=== PATIENT | female | born 1995 | race African-American/Black ===

== ENCOUNTER 2018-04-25 23:57 | Emergency (ER) | payer SELFPAY ==
[2018-04-26] MEDS ORDERED: ONDANSETRON 4 MG (ODT) TAB ONE (00:19)
[2018-04-26] MEDS ORDERED: FAMOTIDINE 20 MG TAB ONE (00:19)
[2018-04-26 00:27] LABS: Urine Specific Gravity 1.025 (1.005-1.030)
[2018-04-26 00:28] LABS: Urine Blood NEGATIVE (NEG); Urine Glucose NEGATIVE (NEG); Urine Protein NEGATIVE (NEG); Urine Specific Gravity 1.025 (1.005-1.030)
[2018-04-26] MEDS ORDERED: LIDOCAINE VISCOUS 2% SOLN 15 ML UDC ONE (00:31)
[2018-04-26] MEDS ORDERED: MAGNE/ALUM HYDROXD 30 ML UCUP ONE (00:31)
--- NOTE | 2018-04-26 01:09 | ER ---
Nurse's Notes [facility] Name: Shy Galvez Age: 22 yrs Sex: Female : 1995 Arrival Date: 04/25/2018 Time: 23:57 Bed 6 Private MD: Diagnosis: Other chest pain;Nausea Presentation: 04/26 00:05 Presenting complaint: Patient states: chest pain to center of chest at 1800 that ak1 resolved. pt c/o chest pain at 2330 EMS at the home, stated possible anxiety or . pt c/o N/V and SOB with central non radiating chest pain. Transition of care: patient was not received from another setting of care. Onset of symptoms was April 25, 2018. Risk Assessment: Do you want to hurt yourself or someone else? Patient reports no desire to harm self or others. Initial Sepsis Screen: Does the patient meet any 2 criteria? No. Patient's initial sepsis screen is negative. Does the patient have a suspected source of infection? No. Patient's initial sepsis screen is negative. Care prior to arrival: None. 00:05 Method Of Arrival: Ambulatory ak1 00:05 Acuity: LOGAN 3 ak1 Triage Assessment: 00:07 General: Appears in no apparent distress. Behavior is calm, cooperative. Pain: ak1 Complains of pain in xyphoid area and mid-sternal area. 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 - Social history:: Smoking status: Patient uses tobacco products, smokes one pack cigarettes per day. - Ebola Screening: : No symptoms or risks identified at this time. Screenin:08 Abuse screen: Denies threats or abuse. Denies injuries from another. Nutritional ak1 screening: No deficits noted. Tuberculosis screening: No symptoms or risk factors identified. Fall Risk None identified. Assessment: 00:07 Pain: Pain does not radiate. Pain began 1800 then resolved. pain came back at 2330. ak1 00:35 Reassessment: Patient and/or family updated on plan of care and expected duration. Pain lp1 level reassessed. Patient is alert, oriented x 3, equal unlabored respirations, skin warm/dry/pink. 01:30 Cardiovascular: Rhythm is sinus rhythm. mg2 Vital Signs: 00:04 BP 129 / 95; Pulse 69; Resp 18; Temp 98.6(O); Pulse Ox 100% on R/A; Weight 70.76 kg ak1 (R); Height 5 ft. 3 in. (160.02 cm) (R); Pain 6/10; 00:04 Body Mass Index 27.63 (70.76 kg, 160.02 cm) ak1 ED Course: 04/25 23:57 Patient arrived in ED. am2 04/26 00:02 Saeid Willoughby PA is PHCP. cp 00:03 Lucho Mccrary MD is Attending Physician. cp 00:04 Arm band placed on Patient placed in an exam room, on a stretcher, on pulse oximetry, ak1 Patient notified of wait time. 00:07 Triage completed. ak1 00:08 Patient has correct armband on for positive identification. Bed in low position. Call ak1 light in reach. Side rails up X 1. Adult w/ patient. Pulse ox on. NIBP on. 00:08 Patient maintains SpO2 saturation greater than 95% on room air. ak1 00:20 Jus Francis, RN is Primary Nurse. mg2 00:55 Patient moved to radiology via wheelchair. kw 00:55 X-ray completed. Patient tolerated procedure well. kw 00:55 Patient moved back from radiology. kw 00:56 XRAY Chest Pa And Lat (2 Views) In Process Unspecified. EDMS 01:29 No provider procedures requiring assistance completed. Patient did not have IV access mg2 during this emergency room visit. Administered Medications: 00:26 Drug: Zofran 4 mg Route: PO; mg2 01:28 Follow up: Response: No adverse reaction; Nausea is decreased; Vomiting decreased mg2 00:26 Drug: Pepcid 20 mg Route: PO; mg2 01:28 Follow up: Response: No adverse reaction; Pain is decreased mg2 00:33 Drug: GI Cocktail without - (Maalox Suspension 30 ml, Lidocaine Liquid 2 % 15 lp1 ml) Route: PO; 01:29 Follow up: Response: No adverse reaction; Pain is decreased mg2 Outcome: 01:09 Discharge ordered by . cp 01:29 Discharged to home ambulatory, with family. mg2 01:29 Condition: stable 01:29 Discharge instructions given to patient, family, Instructed on discharge instructions, follow up and referral plans. medication usage, Demonstrated understanding of instructions, follow-up care, medications, Prescriptions given X 2. 01:30 Patient left the ED. mg2 Signatures: Dispatcher [employer] EDMS Suellen Hollis Laura, RN RN lp1 Karen Sanabria RN RN ak1 Saeid Willoughby, NAMRATA PA Dariana Kilgore Michele, RN RN mg2
--- NOTE | 2018-04-26 01:09 | EDPHYS ---
Physician Documentation [facility] Name: Shy Galvez Age: 22 yrs Sex: Female : 1995 Arrival Date: 04/25/2018 Time: 23:57 Bed 6 Private MD: ED Physician Lucho Mccrary HPI: 04/26 00:14 This 22 yrs old Black Female presents to ER via Ambulatory with complaints of Chest cp Pain. 00:14 Onset: The symptoms/episode began/occurred today, intermittent. Associated signs and cp symptoms: Pertinent positives: vomiting, nausea. 00:14 The patient or guardian reports chest pain that is located primarily in the substernal cp area. 00:14 The pain does not radiate. Associated signs and symptoms: Pertinent positives: nausea, cp Pertinent negatives: cough, diaphoresis, dizziness, lower extremity pain, lower extremity swelling, near syncope, recent travel, shortness of breath, syncope, active vomiting. The chest pain is described as sharp. Duration: The patient or guardian reports multiple episodes, that wax and wane. 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 - Social history:: Smoking status: Patient uses tobacco products, smokes one pack cigarettes per day. - Ebola Screening: : No symptoms or risks identified at this time. ROS: 00:20 Constitutional: Negative for body aches, chills, fever, poor PO intake. cp 00:20 Eyes: Negative for injury, pain, redness, and discharge. cp 00:20 ENT: Negative for drainage from ear(s), ear pain, sore throat, difficulty swallowing, difficulty handling secretions. 00:20 Cardiovascular: Positive for chest pain, of the mid-sternal area, Negative for edema, palpitations. 00:20 Respiratory: Negative for cough, dyspnea on exertion, hemoptysis, pleurisy, shortness of breath, wheezing. 00:20 Abdomen/GI: Positive for nausea, Negative for abdominal pain, diarrhea, constipation, active vomiting. 00:20 Back: Negative for pain at rest, pain with movement, radiated pain. 00:20 : Negative for urinary symptoms, flank pain. 00:20 MS/extremity: Negative for injury or acute deformity, paresthesias, swelling, tenderness. 00:20 Skin: Negative for cellulitis, rash. 00:20 Neuro: Negative for altered mental status, headache, syncope, near syncope, weakness. 00:20 All other systems are negative. Exam: 00:23 Constitutional: The patient appears in no acute distress, alert, awake, cp non-diaphoretic, non-toxic, well developed, well nourished. 00:23 Head/Face: Normocephalic, atraumatic. cp 00:23 Eyes: Periorbital structures: appear normal, Pupils: equal, round, and reactive to light and accomodation, Extraocular movements: intact throughout, Conjunctiva: normal, no exudate, no injection, Sclera: no appreciated abnormality, Lids and lashes: appear normal, bilaterally. 00:23 ENT: External ear(s): are unremarkable, Nose: is normal, Mouth: Lips: moist, Oral mucosa: pink and intact, moist, Posterior pharynx: is normal, airway is patent, no erythema, no exudate, Voice: is normal. 00:23 Neck: ROM/movement: is normal, is supple, without pain, no range of motions limitations, no nuchal rigidity, Lymph nodes: no appreciated lymphadenopathy. 00:23 Chest/axilla: Inspection: normal, Palpation: crepitus, is not appreciated, tenderness, that is mild, of the xyphoid area and mid-sternal area, that partially reproduces the patient's complaints. 00:23 Cardiovascular: Rate: normal, Rhythm: regular, Pulses: Pulses are 2+ in right radial artery and left radial artery. Edema: is not appreciated, JVD: is not appreciated. 00:23 Respiratory: the patient does not display signs of respiratory distress, Respirations: normal, no use of accessory muscles, no retractions, no splinting, no tachypnea, labored breathing, is not present, Breath sounds: are clear throughout, no decreased breath sounds, no stridor, no wheezing. 00:23 Abdomen/GI: Inspection: abdomen appears normal, Bowel sounds: active, all quadrants, Palpation: soft, in all quadrants, mild abdominal tenderness, in the epigastric area, rebound tenderness, is not appreciated, voluntary guarding, is not appreciated, involuntary guarding, is not appreciated. 00:23 Back: pain, is absent, ROM is normal. 00:23 Musculoskeletal/extremity: Exam is negative for calf tenderness, decreased range of motion, deformity, ecchymosis, injury. 00:23 Skin: cellulitis, is not appreciated, no rash present. 00:23 Neuro: Orientation: to person, place \T\ time. Mentation: lucid, able to follow commands, Cerebellar function: is grossly normal, Motor: moves all fours, strength is normal, Sensation: no obvious gross deficits, Gait: is steady. 00:27 ECG was reviewed by the Attending Physician. cp Vital Signs: 00:04 BP 129 / 95; Pulse 69; Resp 18; Temp 98.6(O); Pulse Ox 100% on R/A; Weight 70.76 kg ak1 (R); Height 5 ft. 3 in. (160.02 cm) (R); Pain 6/10; 00:04 Body Mass Index 27.63 (70.76 kg, 160.02 cm) ak1 MDM: 00:07 Patient medically screened. cp 01:05 Data reviewed: vital signs, nurses notes, lab test result(s), EKG, radiologic studies, cp plain films. 01:05 Special discussion: Based on the patient's history, exam, and Dx evaluation, there is cp no indication for emergent intervention or inpatient Tx. It is understood by the patient/guardian that if the Sx's persist or worsen they need to return immediately for re-evaluation. ED course: VSS. Symptoms improved with meds. Will discharge to home for continued monitoring. 04/26 00:20 Order name: Urine Dipstick--Ancillary (enter results); Complete Time: 00:30 2 04/26 00:30 Interpretation: Normal except: UESTR TRACE. 04/26 00:22 Order name: Urine --Ancillary (enter results); Complete Time: 00:30 2 04/26 00:39 Order name: XRAY Chest Pa And Lat (2 Views) 04/26 00:06 Order name: EKG; Complete Time: 00:06 04/26 00:06 Order name: EKG - Nurse/Tech; Complete Time: 00:26 04/26 00:08 Order name: Urine Dipstick-Ancillary (obtain specimen); Complete Time: 00:20 cp 04/26 00:08 Order name: Urine Test (obtain specimen); Complete Time: 00:20 cp EC:27 Rate is 61 beats/min. Rhythm is regular. CO interval is normal. QRS interval is normal. cp QT interval is normal. No ST changes noted. Interpreted by me. Reviewed by me. Administered Medications: 00:26 Drug: Zofran 4 mg Route: PO; mg2 01:28 Follow up: Response: No adverse reaction; Nausea is decreased; Vomiting decreased mg2 00:26 Drug: Pepcid 20 mg Route: PO; mg2 01:28 Follow up: Response: No adverse reaction; Pain is decreased mg2 00:33 Drug: GI Cocktail without - (Maalox Suspension 30 ml, Lidocaine Liquid 2 % 15 lp1 ml) Route: PO; 01:29 Follow up: Response: No adverse reaction; Pain is decreased mg2 Disposition: 04/26/18 01:09 Discharged to Home. Impression: Other chest pain, Nausea. - Condition is Stable. - Discharge Instructions: Nonspecific Chest Pain, Gastroesophageal Reflux Disease, Adult, Nausea, Adult. - Prescriptions for Protonix 40 mg Oral Tablet, Delayed Release (E.C.) - take 1 tablet by ORAL route once daily for 7 days; 7 tablet. Zofran 4 mg Oral Tablet - take 1 tablet by ORAL route every 12 hours As needed; 20 tablet. - Medication Reconciliation Form, Thank You Letter, Antibiotic Education, Prescription Opioid Use form. - Follow up: Private Physician; When: 2 - 3 days; Reason: if symptoms continue. - Problem is new. - Symptoms have improved. - Notes: may try OTC Prevacid 1-2 times per day over next 7 days Addendum: 04/27/2018 07:59 Co-signature as Attending Physician, Lucho Mccrary MD Available for consultation at p s1 all times.. Signatures: Dispatcher [employer] EDMonisha Rodney RN RN lp1 Karen Sanabria RN RN ak1 Saeid Willoughby PA PA cp Singer, Phillip, MD MD ps1 Jus Francis RN RN mg2 Corrections: (The following items were deleted from the chart) 04/26 01:30 01:09 04/26/2018 01:09 Discharged to Home. Impression: Other chest pain; Nausea. mg2 Condition is Stable. Forms are Medication Reconciliation Form, Thank You Letter, Antibiotic Education, Prescription Opioid Use. Follow up: Private Physician; When: 2 - 3 days; Reason: if symptoms continue. Problem is new. Symptoms have improved. cp
[2018-04-26 02:21] VITALS: BP 129/95; TEMP 98.6; O2SAT 100
--- NOTE | 2018-04-26 08:42 | RAD REPORT ---
EXAM DESCRIPTION: RAD - Chest Pa And Lat (2 Views) - 04/26/2018 12:58 am CLINICAL HISTORY: Chest pain, shortness of breath COMPARISON: Two view chest March 2017 TECHNIQUE: PA and lateral views of the chest were obtained. FINDINGS: The lungs are clear. Heart size is normal and central vasculature is within normal limit s. No pleural effusion or pneumothorax seen. No acute bone finding. Patient has a mild right convex mid thoracic scoliotic curvature stable from prior imaging. No aortic abnormality. IMPRESSION: No acute cardiopulmonary process. No significant change from comparison.
--- NOTE | 2018-04-26 09:29 | EKG ---
Test Date: 2018-04-26 Test Time: 00:22:49 Stain Remover: HUY MEASUREMENT RESULTS: Intervals: Rate: 61 NH: 130 QRSD: 98 QT: 380 QTc: 382 [place]: P: 48 NH: 130 QRS: 48 T: 31 INTERPRETIVE STATEMENTS: Normal sinus rhythm with sinus arrhythmia Normal ECG Compared to ECG 08/15/2015 15:12:32 Sinus tachycardia no longer present Electronically Signed On 04-26-18 09:27:43 CDT by Ehsan Rogers
== END 2018-04-26 01:30 | disposition home or self-care (01) ==
LOC: ER 23:57
DX: R07.89 Other chest pain (principal); R11.0 Nausea; F17.210 Nicotine dependence, cigarettes, uncomplicated
CPT/HCPCS: 71046; 81003; 81025; 93005; 99285

== ENCOUNTER 2018-08-17 02:03 | Emergency (ER) | payer SELFPAY ==
--- NOTE | 2018-08-17 02:22 | ER ---
Nurse's Notes [facility] Name: Shy Galvez Age: 22 yrs Sex: Female : 1995 Arrival Date: 08/17/2018 Time: 02:07 Bed 7 Private MD: Diagnosis: Hordeolum and chalazion Presentation: 08/17 02:19 Presenting complaint: Patient states: Pt reports having right eye swelling and pain ea since this AM. Transition of care: patient was not received from another setting of care. Mechanism of Injury: No Mechanism of Injury. The patient denies any loss of vision. Onset of symptoms was August 17, 2018. Risk Assessment: Do you want to hurt yourself or someone else? Patient reports no desire to harm self or others. Initial Sepsis Screen: Does the patient meet any 2 criteria? No. Patient's initial sepsis screen is negative. Does the patient have a suspected source of infection? No. Patient's initial sepsis screen is negative. Care prior to arrival: None. 02:19 Method Of Arrival: Ambulatory ea 02:19 Acuity: LOGAN 5 ea Triage Assessment: 02:20 General: Appears uncomfortable, Behavior is calm, cooperative, appropriate for age. ea Pain: Complains of pain in right upper eyelid. EENT: Eyes edema noted to right eyelid. Neuro: Level of Consciousness is awake, alert, obeys commands, Oriented to person, place, time, situation. Cardiovascular: Patient's skin is warm and dry. Respiratory: Airway is patent Respiratory effort is even, unlabored, Respiratory pattern is regular, symmetrical. Derm: Skin is pink, warm \T\ dry. Musculoskeletal: No signs and/or symptoms reported regarding the musculoskeletal system. Historical: - Allergies: 02:24 No Known Allergies; ea - Home Meds: 02:24 None [Active]; ea - PMHx: 02:24 Pancreatitis; ea - PSHx: 02:24 Tonsillectomy; ea - Immunization history:: Adult Immunizations up to date. - Social history:: Smoking status: Patient/guardian denies using tobacco. - Family history:: not pertinent. - Ebola Screening: : No symptoms or risks identified at this time. - Hospitalizations: : No recent hospitalization is reported. Screenin:22 Abuse screen: Denies threats or abuse. Nutritional screening: No deficits noted. ea Tuberculosis screening: No symptoms or risk factors identified. Fall Risk None identified. Vital Signs: 02:22 BP 114 / 81; Pulse 71; Resp 18; Temp 97.6(O); Pulse Ox 100% ; Weight 58.97 kg; Height 5 ea ft. 7 in. (170.18 cm); Pain 9/10; 02:22 Body Mass Index 20.36 (58.97 kg, 170.18 cm) ea ED Course: 02:07 Patient arrived in ED. al2 02:10 Markie Gallegos MD is Attending Physician. rn 02:19 Esha Diaz, CONG is Primary Nurse. ea 02:20 Triage completed. ea 02:23 Arm band placed on right wrist. Patient placed in an exam room, on a stretcher. ea 02:25 Patient has correct armband on for positive identification. Bed in low position. Call ea light in reach. 02:26 No provider procedures requiring assistance completed. Patient did not have IV access ea during this emergency room visit. Administered Medications: No medications were administered Outcome: 02:22 Discharge ordered by . rn 02:32 Discharged to home ambulatory, with significant other. ea 02:32 Condition: good 02:32 Discharge instructions given to patient, Instructed on discharge instructions, follow up and referral plans. medication usage, Demonstrated understanding of instructions, follow-up care, medications, Prescriptions given X 1. 02:32 Patient left the ED. ea Signatures: Markie Gallegos MD MD rn Antunez, Elena, RN RN ea Love, Angelica al2
--- NOTE | 2018-08-17 02:22 | EDPHYS ---
Physician Documentation [facility] Name: Shy Galvez Age: 22 yrs Sex: Female : 1995 Arrival Date: 08/17/2018 Time: 02:07 Bed 7 Private MD: ED Physician Markie Gallegos HPI: 08/17 02:19 This 22 yrs old Black Female presents to ER via Unassigned with complaints of Eye Pain, rn Eye Swelling. 02:19 The patient is experiencing pain, The patient sustained None. to the right eye, caused rn by an unknown mechanism. Onset: The symptoms/episode began/occurred today. Duration: the symptoms are continuous. Aggravated by nothing. Alleviated by nothing. Severity of symptoms: At their worst the symptoms were mild in the emergency department the symptoms are unchanged. The patient has not experienced similar symptoms in the past. Reports right eye irritation recently, has been using visine, not helping, noticed 2 small bumps on edge of right eyelid, no drainage, no fever, does not wear contacts. . Historical: - Allergies: 02:24 No Known Allergies; ea - Home Meds: 02:24 None [Active]; ea - PMHx: 02:24 Pancreatitis; ea - PSHx: 02:24 Tonsillectomy; ea - Immunization history:: Adult Immunizations up to date. - Social history:: Smoking status: Patient/guardian denies using tobacco. - Family history:: not pertinent. - Ebola Screening: : No symptoms or risks identified at this time. - Hospitalizations: : No recent hospitalization is reported. ROS: 02:19 Constitutional: Negative for fever, chills, and weight loss, Eyes: + right eyelid rn swelling Exam: 02:19 Visual Acuity: Visual acuity is within normal limits. rn 02:19 Constitutional: This is a well developed, well nourished patient who is awake, alert, and in no acute distress. Head/Face: Normocephalic, atraumatic. Eyes: Pupils equal round and reactive to light, extra-ocular motions intact. Conjunctiva and sclera are non-icteric and not injected. Cornea within normal limits. Right upper outer eyelid with mild swelling, 2 small pustular lesions on inner edge of eyelid Vital Signs: 02:22 BP 114 / 81; Pulse 71; Resp 18; Temp 97.6(O); Pulse Ox 100% ; Weight 58.97 kg; Height 5 ea ft. 7 in. (170.18 cm); Pain 9/10; 02:22 Body Mass Index 20.36 (58.97 kg, 170.18 cm) ea MDM: 02:10 Patient medically screened. rn 02:19 Differential diagnosis: stye, venitadeolum. Data reviewed: vital signs, nurses notes, and rn as a result, I will discharge patient. Counseling: I had a detailed discussion with the patient and/or guardian regarding: the historical points, exam findings, and any diagnostic results supporting the discharge/admit diagnosis, the need for outpatient follow up, to return to the emergency department if symptoms worsen or persist or if there are any questions or concerns that arise at home. Special discussion: I discussed with the patient/guardian in detail that at this point there is no indication for admission to the hospital. It is understood, however, that if the symptoms persist or worsen the patient needs to return immediately for re-evaluation. Administered Medications: No medications were administered Disposition: 08/17/18 02:22 Discharged to Home. Impression: Hordeolum and chalazion. - Condition is Stable. - Discharge Instructions: John Veliz. - Prescriptions for Erythromycin 5 mg/gram (0.5 %) Ophthalmic Ointment - apply 1 centimeter by OPHTHALMIC route 2-3 times daily for 7 days; 1 tube. - Medication Reconciliation Form, Thank You Letter, Antibiotic Education, Prescription Opioid Use form. - Follow up: Private Physician; When: As needed; Reason: Recheck today's complaints, Re-evaluation by your physician. - Problem is new. - Symptoms are unchanged. Signatures: Markie Gallegos MD MD rn Antunez, Elena, RN RN ea Corrections: (The following items were deleted from the chart) 02:32 02:22 08/17/2018 02:22 Discharged to Home. Impression: Hordeolum and chalazion. ea Condition is Stable. Forms are Medication Reconciliation Form, Thank You Letter, Antibiotic Education, Prescription Opioid Use. Follow up: Private Physician; When: As needed; Reason: Recheck today's complaints, Re-evaluation by your physician. Problem is new. Symptoms are unchanged. rn
[2018-08-17 02:37] VITALS: BP 114/81; TEMP 97.6; O2SAT 100
== END 2018-08-17 02:32 | disposition home or self-care (01) ==
LOC: ER 02:03
DX: H00.011 Hordeolum externum right upper eyelid (principal); H00.11 Chalazion right upper eyelid
CPT/HCPCS: 99282

== ENCOUNTER 2018-09-08 11:43 | Emergency (ER) | payer SELFPAY ==
[2018-09-08 12:24] LABS: Absolute Lymphocytes (CBC) 2.1 K/uL (0.7-4.9); Absolute Monocytes 0.5 K/uL (0.1-1.3); Absolute Neutrophil 4.2 K/uL (1.8-8.0); Basophils % 0.5 % (0-1.3); Eosinophils % 1.5 % (0-4.4); Hematocrit 42.9 % (36.0-45.0); Lymphocytes % 30.4 % (15.3-44.8); MCH 30.5 pg (27.0-35.0); Monocytes % 6.7 % (3.3-12.3); RBC Red Blood Cell Count 4.92 M/uL (3.86-4.86)
[2018-09-08 12:30] LABS: Protime INR 1.03
[2018-09-08 12:48] LABS: ALT/SGPT 18 U/L (12-78); AST/SGOT 12 U/L (15-37); Albumin 3.9 g/dL (3.4-5.0); Alkaline Phosphatase 70 U/L (45-117); BUN Blood Urea Nitrogen 9 mg/dL (7-18); Bicarbonate 25 mmol/L (21-32); Bilirubin Direct 0.2 mg/dL (0-0.2); Bilirubin Total 0.5 mg/dL (0.2-1.0); Glucose Level 87 mg/dL (74-106); Potassium 3.5 mmol/L (3.5-5.1); Protein, Total 7.7 g/dL (6.4-8.2); Sodium Level 141 mmol/L (136-145)
[2018-09-08 13:08] LABS: Urine Blood 2+ (NEG); Urine Glucose NEGATIVE (NEG); Urine Protein 2+ (NEG); Urine pH 6.5 (5.0-7.0)
[2018-09-08 13:13] LABS: Barbiturates NEGATIVE (NEGATIVE); Benzodiazepines NEGATIVE (NEGATIVE); Cocaine POSITIVE (NEGATIVE); METHAMPHETAM NEGATIVE (NEGATIVE); Methadone NEGATIVE (NEGATIVE); Opiates NEGATIVE (NEGATIVE); Phencyclidine NEGATIVE (NEGATIVE); THC Cannibis POSITIVE (NEGATIVE)
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
[2018-09-08 17:18] VITALS: O2SAT 100
[2018-09-08 17:21] VITALS: BP 120/98; TEMP 97.8
--- NOTE | 2018-09-08 22:08 | EKG ---
Test Date: 2018-09-08 Test Time: 12:41:44 Drier Feeder: YUN MEASUREMENT RESULTS: Intervals: Rate: 66 NH: 126 QRSD: 92 QT: 374 QTc: 392 [place]: P: 58 NH: 126 QRS: 61 T: 62 INTERPRETIVE STATEMENTS: Normal sinus rhythm Normal ECG Compared to ECG 04/26/2018 00:22:49 Sinus arrhythmia no longer present Electronically Signed On 09-08-18 22:08:10 CDT by Ector Rodriguez
== END 2018-09-08 17:06 | disposition home or self-care (01) ==
LOC: ER 11:43
DX: F43.0 Acute stress reaction (principal)
CPT/HCPCS: 36415; 80048; 80076; 80307; 80320; 80329; 81003; 81025; 85025; 85610; 85730; 93005; 99285

== ENCOUNTER 2018-10-08 19:27 | Emergency (ER) | payer OTHER, SELFPAY ==
[2018-10-08 20:44] LABS: Urine Glucose NEGATIVE (NEG); Urine Specific Gravity 1.025 (1.005-1.030)
[2018-10-08 20:44] LABS: Absolute Lymphocytes (CBC) 4.1 K/uL (0.7-4.9); Absolute Monocytes 0.8 K/uL (0.1-1.3); Absolute Neutrophil 4.2 K/uL (1.8-8.0); Basophils % 0.9 % (0-1.3); Eosinophils % 0.9 % (0-4.4); Hematocrit 41.6 % (36.0-45.0); Lymphocytes % 44.4 % (15.3-44.8); MCH 30.4 pg (27.0-35.0); MCV 87.4 fL (80-100); MPV 9.1 fL (7.6-11.3); Monocytes % 8.6 % (3.3-12.3); RBC Red Blood Cell Count 4.76 M/uL (3.86-4.86)
[2018-10-08 20:45] LABS: Urine Blood NEGATIVE (NEG); Urine Protein NEGATIVE (NEG)
[2018-10-08] MEDS ORDERED: NA CHLORIDE 0.9% 1,000 ML ONE (21:02)
[2018-10-08 21:03] LABS: BUN Blood Urea Nitrogen 16 mg/dL (7-18); Bicarbonate 26 mmol/L (21-32); Glucose Level 72 mg/dL (74-106); Potassium 3.5 mmol/L (3.5-5.1); Sodium Level 140 mmol/L (136-145)
[2018-10-08 21:32] LABS: Urine Bacteria <20 /HPF (<20); Urine Culture Reflex Order REFLEXED; Urine RBC <5 /HPF (NONE SEEN)
--- NOTE | 2018-10-08 21:46 | EDPHYS ---
Physician Documentation [facility] Name: Shy Galvez Age: 22 yrs Sex: Female : 1995 Arrival Date: 10/08/2018 Time: 19:40 Bed 15 Private MD: ED Physician Markie Gallegos HPI: 10/08 20:29 This 22 yrs old Black Female presents to ER via Ambulatory with complaints of Dizziness.rn 20:29 The patient presents with generalized weakness, lightheadedness. Onset: The rn symptoms/episode began/occurred at an unknown time. Context: occurred. 20:43 Modifying factors: The symptoms are alleviated by nothing, the symptoms are aggravated rn by standing up. Severity of symptoms: At their worst the symptoms were mild in the emergency department the symptoms are unchanged. The patient has not experienced similar symptoms in the past. Reports dizziness, nausea, thinks may be , is not on control, has been trying for three years, no abd pain, no vaginal bleeding, no trauma. . 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 - Social history:: Smoking status: Patient uses tobacco products. - Family history:: not pertinent. - Ebola Screening: : No symptoms or risks identified at this time. - Hospitalizations: : No recent hospitalization is reported. ROS: 20:43 Constitutional: Negative for fever, chills, and weight loss, Eyes: Negative for injury, rn pain, redness, and discharge, Neck: Negative for injury, pain, and swelling, Cardiovascular: Negative for chest pain, palpitations, and edema, Respiratory: Negative for shortness of breath, cough, wheezing, and pleuritic chest pain, Abdomen/GI: + nausea, no abd pain : Negative for injury, bleeding, discharge, and swelling, MS/Extremity: Negative for injury and deformity, Skin: Negative for injury, rash, and discoloration, Neuro: Negative for headache, weakness, numbness, tingling, and seizure. Exam: 20:43 Constitutional: This is a well developed, well nourished patient who is awake, alert, rn and in no acute distress, sitting upright, legs crossed, smiling Head/Face: Normocephalic, atraumatic. Eyes: Pupils equal round and reactive to light, extra-ocular motions intact. Lids and lashes normal. Conjunctiva and sclera are non-icteric and not injected. Cornea within normal limits. Periorbital areas with no swelling, redness, or edema. ENT: MMM Cardiovascular: Regular rate and rhythm with a normal S1 and S2. No gallops, murmurs, or rubs. No pulse deficits. Respiratory: Lungs have equal breath sounds bilaterally, clear to auscultation. No increased work of breathing, no retractions or nasal flaring. Abdomen/GI: soft, non-tender Skin: Warm, dry with normal turgor. Normal color with no rashes, no lesions, and no evidence of cellulitis. MS/ Extremity: Pulses equal, no cyanosis. Neurovascular intact. Full, normal range of motion. Equal circumference. Neuro: Awake and alert, GCS 15, oriented to person, place, time, and situation. Cranial nerves II-XII grossly intact. Motor strength 5/5 in all extremities. Sensory grossly intact. Cerebellar exam normal. Normal gait. Vital Signs: 19:40 BP 129 / 83; Pulse 84; Resp 18; Temp 97.9; Pulse Ox 100% on R/A; Weight 69.4 kg (R); ak1 Height 5 ft. 3 in. (160.02 cm) (R); Pain 5/10; 21:15 BP 123 / 77; Pulse 64; Resp 16; Pulse Ox 99% on R/A; jb4 21:41 BP 119 / 75; Pulse 76; Resp 16; Pulse Ox 100% on R/A; jb4 19:40 Body Mass Index 27.10 (69.40 kg, 160.02 cm) ak1 MDM: 19:40 Patient medically screened. rn 21:44 Differential diagnosis: hypovolemia, idiopathic dizziness, . Data reviewed: rn vital signs, nurses notes, lab test result(s), and as a result, I will discharge patient. Counseling: I had a detailed discussion with the patient and/or guardian regarding: the historical points, exam findings, and any diagnostic results supporting the discharge/admit diagnosis, lab results, radiology results, the need for outpatient follow up, to return to the emergency department if symptoms worsen or persist or if there are any questions or concerns that arise at home. Special discussion: I discussed with the patient/guardian in detail that at this point there is no indication for admission to the hospital. It is understood, however, that if the symptoms persist or worsen the patient needs to return immediately for re-evaluation. ED course: Recommended vitamins, no drinking/drugs/smoking, and OB f/u. . 21:45 ED course: NO bacteriuria, neg nitrate, + dirty sample, will dc home without abx as no rn urinary symptoms. . 10/08 19:56 Order name: CBC with Diff rn 10/08 19:56 Order name: Basic Metabolic Panel rn 10/08 20:30 Order name: Urine Microscopic Only rn 10/08 20:33 Order name: Urine Dipstick--Ancillary (enter results) [facility] 10/08 20:33 Order name: Urine --Ancillary (enter results) [facility] 10/08 20:34 Order name: Quantitative Hcg rn 10/08 20:30 Order name: US Transvaginal Ob rn 10/08 20:44 Order name: CBC with Automated Diff; Complete Time: 20:49 EDAL 10/08 20:45 Order name: Urine --Ancillary; Complete Time: 20:49 EDAL 10/08 20:45 Order name: Urine Dipstick-Ancillary; Complete Time: 20:49 [facility] 10/08 21:04 Order name: Basic Metabolic Panel; Complete Time: 21:44 EDAL 10/08 21:33 Order name: Urine Microscopic Only; Complete Time: 21:44 EDAL 10/08 21:35 Order name: HCG, Quantitative; Complete Time: 21:44 EDAL 10/08 21:52 Order name: US EDAL 10/08 19:56 Order name: Urine Dipstick-Ancillary (obtain specimen); Complete Time: 20:56 rn 10/08 19:56 Order name: Urine Test (obtain specimen); Complete Time: 20:56 rn 10/08 19:56 Order name: IV Start; Complete Time: 20:56 rn 10/08 19:56 Order name: EKG; Complete Time: 19:57 rn 10/08 19:56 Order name: EKG - Nurse/Tech; Complete Time: 20:56 rn 10/08 19:57 Order name: Glucose Level; Complete Time: 20:56 rn Administered Medications: 20:57 Drug: NS 0.9% 1000 ml Route: IV; Rate: 1000 ml; Site: right antecubital; jb4 22:00 Follow up: Response: No adverse reaction; IV Status: Completed infusion jb4 Point of Care Testing: Blood Glucose: 20:20 Blood Glucose: 78 mg/dL; jb4 Ranges: Critical Glucose Levels:Adult <50 mg/dl or >400 mg/dl <40 mg/dl or >180 mg/dl Disposition: 10/08/18 21:45 Discharged to Home. Impression: First trimester of . - Condition is Stable. - Discharge Instructions: First Trimester of . - Medication Reconciliation Form, Thank You Letter, Antibiotic Education, Prescription Opioid Use form. - Follow up: Private Physician; When: As needed; Reason: Recheck today's complaints, Re-evaluation by your physician. - Problem is new. - Symptoms have improved. Signatures: Dispatcher [employer] EDMarkie Parra MD MD rn Krenek, Amber, RN RN ak1 Duncan Mcneil RN RN jb4 Corrections: (The following items were deleted from the chart) 22:06 21:45 10/08/2018 21:45 Discharged to Home. Impression: First trimester of . jb4 Condition is Stable. Forms are Medication Reconciliation Form, Thank You Letter, Antibiotic Education, Prescription Opioid Use. Follow up: Private Physician; When: As needed; Reason: Recheck today's complaints, Re-evaluation by your physician. Problem is new. Symptoms have improved. rn
--- NOTE | 2018-10-08 21:46 | ER ---
Nurse's Notes 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 Transition of care: patient was not received from another setting of care. Onset of symptoms is unknown. Note pt eating popeyes in lobby. Care prior to arrival: None. 19:41 Method Of Arrival: Ambulatory ak1 19:41 Acuity: LOGAN 3 ak1 21:47 Risk Assessment: Do you want to hurt yourself or someone else? Patient reports no jb4 desire to harm self or others. Initial Sepsis Screen: Does the patient meet any 2 criteria? No. Patient's initial sepsis screen is negative. Does the patient have a suspected source of infection? No. Patient's initial sepsis screen is negative. 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 - Social history:: Smoking status: Patient uses tobacco products. - Family history:: not pertinent. - Ebola Screening: : No symptoms or risks identified at this time. - Hospitalizations: : No recent hospitalization is reported. Screenin:50 Abuse screen: Denies threats or abuse. Nutritional screening: No deficits noted. jb4 Tuberculosis screening: No symptoms or risk factors identified. Fall Risk IV access (20 points). Assessment: 19:50 General: Appears in no apparent distress. comfortable, Behavior is calm, cooperative, jb4 appropriate for age. Pain: Complains of pain in abdomen. Neuro: Level of Consciousness is awake, alert, obeys commands, Oriented to person, place, time, situation, Gait is steady, Speech is normal, Facial symmetry appears normal. Cardiovascular: Patient's skin is warm and dry. Respiratory: Airway is patent Respiratory effort is even, unlabored, Respiratory pattern is regular, symmetrical. GI: No signs and/or symptoms were reported involving the gastrointestinal system. : No signs and/or symptoms were reported regarding the genitourinary system. EENT: No signs and/or symptoms were reported regarding the EENT system. Derm: Skin is intact, Skin is dry, Skin is normal, Skin temperature is warm. Musculoskeletal: Circulation, motion, and sensation intact. 21:33 Reassessment: Patient appears in no apparent distress at this time. Patient and/or jb4 family updated on plan of care and expected duration. Pain level reassessed. Patient is alert, oriented x 3, equal unlabored respirations, skin warm/dry/pink. 21:50 Reassessment: Patient appears in no apparent distress at this time. Patient and/or jb4 family updated on plan of care and expected duration. Pain level reassessed. Patient is alert, oriented x 3, equal unlabored respirations, skin warm/dry/pink. When asked if she smoked. Pt stated "I used to he (the ) put a cut off on that" When asked when the last time she smoked pt replied "two days ago." when informed of the need to quit smoking pt replied. "does that mean everything even cigarettes.". 22:02 Reassessment: Discussed D/c, F/u with pt, denies questions or concerns. Pt reports past jb4 drug use, denies ETOH use. Reiterated the need for smoking cessation and the importance of no further drug use or ETOH use. Informed of possible negative outcomes if use is continued during . Vital Signs: 19:40 BP 129 / 83; Pulse 84; Resp 18; Temp 97.9; Pulse Ox 100% on R/A; Weight 69.4 kg (R); ak1 Height 5 ft. 3 in. (160.02 cm) (R); Pain 5/10; 21:15 BP 123 / 77; Pulse 64; Resp 16; Pulse Ox 99% on R/A; jb4 21:41 BP 119 / 75; Pulse 76; Resp 16; Pulse Ox 100% on R/A; jb4 19:40 Body Mass Index 27.10 (69.40 kg, 160.02 cm) ak1 ED Course: 19:40 Patient arrived in ED. ak1 19:40 Markie Gallegos MD is Attending Physician. rn 19:41 Triage completed. ak1 19:42 Arm band placed on Patient placed in an exam room, on a stretcher, Patient notified of ak1 wait time. 19:50 Patient has correct armband on for positive identification. Bed in low position. Call jb4 light in reach. Side rails up X 1. Pulse ox on. NIBP on. 20:00 Duncan Mcneil, RN is Primary Nurse. jb4 21:28 Ultrasound completed. Patient tolerated well. sg3 22:05 No provider procedures requiring assistance completed. IV discontinued, intact, jb4 bleeding controlled. Administered Medications: 20:57 Drug: NS 0.9% 1000 ml Route: IV; Rate: 1000 ml; Site: right antecubital; jb4 22:00 Follow up: Response: No adverse reaction; IV Status: Completed infusion jb4 Point of Care Testing: Blood Glucose: 20:20 Blood Glucose: 78 mg/dL; jb4 Ranges: Outcome: 21:45 Discharge ordered by . rn 22:05 Discharged to home ambulatory. jb4 22:05 Condition: stable 22:05 Discharge instructions given to patient, Instructed on discharge instructions, follow up and referral plans. benefits of quitting smoking, Demonstrated understanding of instructions, follow-up care. 22:06 Patient left the ED. jb4 Signatures: Markie Gallegos MD MD rn Krenek, Amber, RN RN ak1 Duncan Mcneil, CONG RN jb4 Naty Jones 3
--- NOTE | 2018-10-08 21:52 | RAD REPORT ---
EXAM DESCRIPTION: US - Transvaginal OB - 10/08/2018 9:30 pm CLINICAL HISTORY: lower abd pain Pelvic pain COMPARISON: No relevant comparisons FINDINGS: A single gestational sac is seen within the uterus. The shape of the sac is within normal limits for gestational age. The sac is small measuring 3 mm with no yolk sac or embryo yet detected. Based on mean sac diameter, estimated gestational age is 4 weeks 6 days. The placenta is not yet developed due to early gestational age. The maternal adnexa and ovaries are within normal limits. Normal Doppler blood flow was demonstrated to both ovaries. IMPRESSION: Very early IUP findings are present. No unusual or unexpected finding.
[2018-10-08 22:22] VITALS: TEMP 97.9
[2018-10-08 22:25] VITALS: BP 119/75; O2SAT 100
--- NOTE | 2018-10-09 06:16 | EKG ---
Test Date: 2018-10-08 Test Time: 20:30:11 Medical Biller/Coder: KASH MEASUREMENT RESULTS: Intervals: Rate: 85 RI: 132 QRSD: 90 QT: 352 QTc: 418 [place]: P: -2 RI: 132 QRS: 55 T: 40 INTERPRETIVE STATEMENTS: Normal sinus rhythm with sinus arrhythmia Normal ECG Compared to ECG 09/08/2018 12:41:44 No significant changes Electronically Signed On 10-09-18 06:15:57 ANIMAL DOCTOR by Ector Rodriguez
== END 2018-10-08 22:06 | disposition home or self-care (01) ==
LOC: ER 19:27
DX: R42 Dizziness and giddiness (principal); Z33.1 Pregnant state, incidental; Z72.0 Tobacco use; F32.9 Major depressive disorder, single episode, unspecified; Z79.899 Other long term (current) drug therapy
CPT/HCPCS: 36415; 76817; 80048; 81003; 81015; 81025; 82962; 84702; 85025; 87086; 87088; 93005; 96360; 99283; J7030

== ENCOUNTER 2018-10-13 17:39 | Emergency (ER) | payer SELFPAY ==
[2018-10-13 18:57] LABS: Urine Amorphous Sediment 2+ /HPF (NONE SEEN); Urine Bacteria 20-50 /HPF (<20); Urine Culture Reflex Order NOT NEEDED; Urine RBC NONE SEEN /HPF (NONE SEEN)
[2018-10-13 19:17] LABS: Absolute Lymphocytes (CBC) 3.6 K/uL (0.7-4.9); Absolute Monocytes 0.7 K/uL (0.1-1.3); Absolute Neutrophil 4.3 K/uL (1.8-8.0); Basophils % 1.1 % (0-1.3); Eosinophils % 0.7 % (0-4.4); Hematocrit 39.7 % (36.0-45.0); Lymphocytes % 41.2 % (15.3-44.8); MCH 30.5 pg (27.0-35.0); MCV 87.2 fL (80-100); MPV 8.7 fL (7.6-11.3); Monocytes % 8.3 % (3.3-12.3); RBC Red Blood Cell Count 4.56 M/uL (3.86-4.86)
[2018-10-13 19:24] LABS: Urine Blood 2+ (NEG); Urine Glucose NEGATIVE (NEG); Urine Protein NEGATIVE (NEG); Urine Specific Gravity 1.025 (1.005-1.030)
[2018-10-13 19:51] LABS: ALT/SGPT 18 U/L (12-78); AST/SGOT 10 U/L (15-37); Albumin 3.6 g/dL (3.4-5.0); Alkaline Phosphatase 66 U/L (45-117); BUN Blood Urea Nitrogen 12 mg/dL (7-18); Bicarbonate 26 mmol/L (21-32); Bilirubin Direct 0.1 mg/dL (0-0.2); Bilirubin Total 0.3 mg/dL (0.2-1.0); Glucose Level 75 mg/dL (74-106); HCG, Quantitative 5697 mIU/mL (1-3); Lipase 138 U/L (73-393); Potassium 3.5 mmol/L (3.5-5.1); Protein, Total 7.4 g/dL (6.4-8.2); Sodium Level 140 mmol/L (136-145)
--- NOTE | 2018-10-13 19:57 | ER ---
Nurse's Notes [facility] Name: Shy Galvez Age: 22 yrs Sex: Female : 1995 Arrival Date: 10/13/2018 Time: 17:42 Bed 8 Private MD: None, None Diagnosis: Urinary tract infection, site not specified Presentation: 10/13 17:45 Presenting complaint: Patient states: LMP August 10, started having bad abd cramping la1 abour 20 mins ago, denies bleeding. Transition of care: patient was not received from another setting of care. Onset of symptoms was October 13, 2018. Risk Assessment: Do you want to hurt yourself or someone else? Patient reports no desire to harm self or others. Initial Sepsis Screen: Does the patient meet any 2 criteria? No. Patient's initial sepsis screen is negative. Does the patient have a suspected source of infection? No. Patient's initial sepsis screen is negative. Care prior to arrival: None. 17:45 Method Of Arrival: Ambulatory la1 17:45 Acuity: LOGAN 3 la1 REPAIRER HELPER: 20:13 Verified tl2 Historical: - Allergies: 17:46 No Known Allergies; la1 - Home Meds: 19:32 Zoloft Oral [Active]; tl2 - PMHx: 17:46 Depression; Pancreatitis; la1 - Immunization history:: Adult Immunizations up to date. - Social history:: Smoking status: Patient uses tobacco products, smokes one-half pack cigarettes per day. - Ebola Screening: : No symptoms or risks identified at this time. Screenin:59 Abuse screen: Denies threats or abuse. Denies injuries from another. Nutritional ph screening: No deficits noted. Tuberculosis screening: No symptoms or risk factors identified. Fall Risk None identified. Assessment: 18:58 General: Appears in no apparent distress. comfortable, well groomed, Behavior is calm, ph cooperative, appropriate for age. Pain: Complains of pain in suprapubic area. Neuro: Level of Consciousness is awake, alert, obeys commands, Oriented to person, place, time, situation. Cardiovascular: Capillary refill < 3 seconds in bilateral fingers Patient's skin is warm and dry. Respiratory: Airway is patent Respiratory effort is even, unlabored, Respiratory pattern is regular, symmetrical. GI: Abdomen is non-distended, Bowel sounds present X 4 quads. Abd is soft X 4 quads Abdomen is tender to palpation in suprapubic area and right lower quadrant. : Urine is cloudy, Reports pain in suprapubic area Denies burning with urination, vaginal bleeding. Derm: Skin is intact, is healthy with good turgor, Skin is pink, warm \T\ dry. Musculoskeletal: Circulation, motion, and sensation intact. Range of motion: intact in all extremities. 19:30 General: Appears Reviewed previous assessment, No changes and I agree with it's tl2 accuracy. Pt resting, no complaints or concerns at this time. Awaiting lab results. 20:11 Reassessment: Patient appears in no apparent distress at this time. Patient and/or tl2 family updated on plan of care and expected duration. Pain level reassessed. Patient is alert, oriented x 3, equal unlabored respirations, skin warm/dry/pink. Pt verbalized understanding of discharge instructions, given resources for REPAIRER HELPER, prescription usage. Pt ambulatory out of ER with family. Vital Signs: 17:46 BP 114 / 86; Pulse 84; Resp 18; Temp 97.5; Pulse Ox 98% on R/A; Weight 69.4 kg; Height la1 5 ft. 3 in. (160.02 cm); 19:36 BP 132 / 78; Pulse 73; Resp 18; Pulse Ox 100% on R/A; tl2 17:46 Body Mass Index 27.10 (69.40 kg, 160.02 cm) la1 ED Course: 17:42 Patient arrived in ED. sb2 17:43 None, None is Private Physician. sb2 17:46 Triage completed. la1 17:46 Arm band placed on left wrist. la1 18:09 Kavon Vásquez PA is PHCP. jmm 18:09 Markie Gallegos MD is Attending Physician. jm 18:18 Glenda Sanchez, CONG is Primary Nurse. ph 18:59 Patient has correct armband on for positive identification. Placed in gown. Bed in low ph position. Call light in reach. Side rails up X 1. Pulse ox on. NIBP on. Warm blanket given. 19:00 Initial lab(s) drawn, by me, sent to lab. Urine collected:. Inserted saline lock: 20 ph gauge in right antecubital area, using aseptic technique. Blood collected. 20:11 No provider procedures requiring assistance completed. IV discontinued, intact, tl2 bleeding controlled, No redness/swelling at site. Pressure dressing applied. Administered Medications: No medications were administered Outcome: 19:56 Discharge ordered by . britni 20:11 Discharged to home ambulatory, with family. tl2 20:11 Condition: stable 20:11 Discharge instructions given to patient, family, Instructed on discharge instructions, follow up and referral plans. medication usage, Demonstrated understanding of instructions, follow-up care, medications, Prescriptions given X 1. 20:14 Patient left the ED. tl2 Addendum: 10/19/2018 11:01 Addendum: Other pt called to report she lost her remaining antibiotics, called in i w cephalexin 500 mg BID for 5 days #10, called to [facility], per Dr. Gallegos. Signatures: Kavon Vásquez PA PA jmm Williams, Irene RN CONG iw Ayo Iyer RN RN la1 Glenda Sanchez RN RN Neida Elmore RN RN tl2 Leti Bearden sb2 Corrections: (The following items were deleted from the chart) 11:06 11:01 Addendum: Other pt called to report she lost her remaining antibiotics, called in iw caphalexin for 5 days to [facility] Colon iw
--- NOTE | 2018-10-13 19:57 | EDPHYS ---
Physician Documentation [facility] Name: Shy Galvez Age: 22 yrs Sex: Female : 1995 Arrival Date: 10/13/2018 Time: 17:42 Bed 8 Private MD: None, None ED Physician Markie Gallegos HPI: 10/13 18:33 This 22 yrs old Black Female presents to ER via Ambulatory with complaints of Abdominal jmm Cramping - 6-8WK PG. 18:33 The patient presents to the emergency department with abdominal pain, of the suprapubic jmm area. Associated signs and symptoms: Pertinent negatives: diarrhea, vomiting. This is a 22 year old female with a history of depression and pancreatitis that presents to the ED with suprapubic abdominal pain radiating to the back. Patient states she has had similar episodes of pain since she found out she was at the beginning of this month. Patient was evaluated for this previously in the ED. Patient denies abnormal vaginal discharge. 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 - Social history:: Smoking status: Patient uses tobacco products, smokes one-half pack cigarettes per day. - Ebola Screening: : No symptoms or risks identified at this time. ROS: 18:33 Constitutional: Negative for fever, chills, and weight loss. jmm 18:33 Abdomen/GI: Positive for abdominal pain. 18:33 Back: Positive for radiated pain. 18:33 All other systems are negative. Exam: 18:33 Constitutional: This is a well developed, well nourished patient who is awake, alert, jmm and in no acute distress. Head/Face: atraumatic. Eyes: EOMI, no conjunctival erythema appreciated Chest/axilla: Normal chest wall appearance and motion. Cardiovascular: Regular rate and rhythm. No edema appreciated Respiratory: Normal respirations, no respiratory distress appreciated 18:33 Abdomen/GI: Inspection: abdomen appears normal, Bowel sounds: normal, Palpation: soft, mild abdominal tenderness, in the suprapubic area. 18:33 Back: ROM is normal. 18:33 Musculoskeletal/extremity: ROM: intact in all extremities. 18:33 Skin: Appearance: Color: normal in color. 18:33 Neuro: Orientation: is normal, Mentation: is normal, Memory: is normal. 18:33 Psych: Behavior/mood is pleasant, cooperative. Vital Signs: 17:46 BP 114 / 86; Pulse 84; Resp 18; Temp 97.5; Pulse Ox 98% on R/A; Weight 69.4 kg; Height la1 5 ft. 3 in. (160.02 cm); 19:36 BP 132 / 78; Pulse 73; Resp 18; Pulse Ox 100% on R/A; tl2 17:46 Body Mass Index 27.10 (69.40 kg, 160.02 cm) la1 MDM: 18:25 Patient medically screened. [facility] 19:51 Data reviewed: vital signs, nurses notes. Counseling: I had a detailed discussion with britni the patient and/or guardian regarding: the historical points, exam findings, and any diagnostic results supporting the discharge/admit diagnosis, lab results, radiology results, the need for outpatient follow up, to return to the emergency department if symptoms worsen or persist or if there are any questions or concerns that arise at home. ED course: Patient is alert and non toxic in appearance in the ED. Patient later admits to increased urinary frequency. No guarding or rebound is appreciated on evaluation. Due to patient complains of lower abdominal/suprapubic pain, patient given early appendicitis return precautions. Patient has not right lower abdominal tenderness on palpation on reexamination. Patient and partner understood and agrees with the plan of care. . 10/13 18:27 Order name: Urine Culture 10/13 18:27 Order name: Urine Microscopic Only; Complete Time: 19:19 10/13 18:32 Order name: Basic Metabolic Panel; Complete Time: 20:26 [facility] 10/13 18:32 Order name: CBC with Diff; Complete Time: 19:36 [facility] 10/13 18:32 Order name: Creatinine for Radiology; Complete Time: 19:36 [facility] 10/13 18:32 Order name: Hepatic Function; Complete Time: 20:26 [facility] 10/13 18:27 Order name: Urine Test (obtain specimen); Complete Time: 18:28 10/13 18:27 Order name: Urine Dipstick-Ancillary (obtain specimen); Complete Time: 18:27 10/13 18:32 Order name: Lipase; Complete Time: 20:26 [facility] 10/13 18:32 Order name: IV Saline Lock; Complete Time: 19:00 [facility] 10/13 18:32 Order name: Labs collected and sent; Complete Time: 19:00 [facility] 10/13 18:32 Order name: Quantitative Hcg; Complete Time: 20:26 [facility] 10/13 18:36 Order name: Urine Dipstick--Ancillary (enter results); Complete Time: 19:36 gm 10/13 18:36 Order name: Urine --Ancillary (enter results); Complete Time: 19:36 gm Administered Medications: No medications were administered Disposition: 10/13/18 19:56 Discharged to Home. Impression: Urinary tract infection, site not specified. - Condition is Stable. - Discharge Instructions: Urinary Tract Infection, Adult, and Urinary Tract Infection. - Prescriptions for Cephalexin 500 mg Oral Capsule - take 1 capsule by ORAL route every 12 hours for 10 days; 20 capsule. - Medication Reconciliation Form, Thank You Letter, Antibiotic Education, Prescription Opioid Use form. - Follow up: Private Physician; When: 2 - 3 days; Reason: Recheck today's complaints, Continuance of care, Re-evaluation by your physician. Addendum: 10/17/2018 07:01 Co-signature as Attending Physician, Markie Gallegos MD. r n Signatures: Dispatcher [employer] EDMS Kavon Vásquez PA PA [facility] Delores Castanon RN RN Markie Gallegos MD MD rn Attema, Lee, RN RN la1 Neida Elmore RN RN tl2 Corrections: (The following items were deleted from the chart) 10/13 19:55 19:51 ED course: Patient is alert and non toxic in appearance in the ED. Patient later [facility] admits to increased urinary frequency. No gaurding or rebound is appreciated on evaluationg. Due to patient complains of lower abdominal/suprapubic pain patient is . britni 20:14 19:56 10/13/2018 19:56 Discharged to Home. Impression: Urinary tract infection, site tl2 not specified. Condition is Stable. Forms are Medication Reconciliation Form, Thank You Letter, Antibiotic Education, Prescription Opioid Use. Follow up: Private Physician; When: 2 - 3 days; Reason: Recheck today's complaints, Continuance of care, Re-evaluation by your physician. britni
[2018-10-13 20:30] VITALS: TEMP 97.5
[2018-10-13 20:34] VITALS: BP 132/78; O2SAT 100
== END 2018-10-13 20:14 | disposition home or self-care (01) ==
LOC: ER 17:39
DX: O23.41 Unspecified infection of urinary tract in pregnancy, first trimester (principal); O99.341 Other mental disorders complicating pregnancy, first trimester; O99.331 Smoking (tobacco) complicating pregnancy, first trimester; F17.210 Nicotine dependence, cigarettes, uncomplicated; Z3A.01 Less than 8 weeks gestation of pregnancy
CPT/HCPCS: 36415; 80048; 80076; 81003; 81015; 81025; 83690; 84702; 85025; 87086; 87088; 99284

== ENCOUNTER 2018-11-05 12:31 | Emergency (ER) | payer SELFPAY ==
--- NOTE | 2018-11-05 14:58 | ER ---
Nurse's Notes [facility] Name: Shy Galvez Age: 22 yrs Sex: Female : 1995 Arrival Date: 11/05/2018 Time: 12:32 Bed 12 Private MD: None, None Diagnosis: Cough Presentation: 11/05 13:39 Presenting complaint: Patient states: productive cough, brownish tinged in color x 2 sv days, denies fever. Pt is about 9 wks . Transition of care: patient was not received from another setting of care. Onset of symptoms was November 03, 2018. Care prior to arrival: None. 13:39 Method Of Arrival: Ambulatory sv 13:39 Acuity: LOGAN 4 sv 17:10 Risk Assessment: Do you want to hurt yourself or someone else? Patient reports no dm5 desire to harm self or others. Initial Sepsis Screen: Does the patient meet any 2 criteria? No. Patient's initial sepsis screen is negative. Does the patient have a suspected source of infection? No. Patient's initial sepsis screen is negative. Triage Assessment: 13:41 General: Appears in no apparent distress. comfortable, Behavior is calm, cooperative, sv appropriate for age. Pain: Complains of pain in throat Pain currently is 6 out of 10 on a pain scale. Neuro: Level of Consciousness is awake, alert, obeys commands, Oriented to person, place, time, situation, Moves all extremities. Full function. Respiratory: Reports cough that is productive, Respiratory effort is even, unlabored, Respiratory pattern is regular, symmetrical, Onset: The symptoms/episode began/occurred 2 days ago, the patient has mild shortness of breath. 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 - Social history:: Smoking status: Patient uses tobacco products, denies chronic smoking, but will smoke occasionally. - Ebola Screening: : No symptoms or risks identified at this time. Screenin:14 Abuse screen: Denies threats or abuse. Denies injuries from another. Nutritional dm5 screening: No deficits noted. Tuberculosis screening: No symptoms or risk factors identified. Fall Risk None identified. Assessment: 14:14 General: Appears in no apparent distress. uncomfortable, Behavior is calm, cooperative. dm5 Neuro: Level of Consciousness is awake, alert, obeys commands, Oriented to person, place, time, situation. Cardiovascular: Rhythm is regular. Respiratory: Airway is patent Respiratory effort is even, unlabored, Respiratory pattern is regular, symmetrical, Breath sounds with wheezes bilaterally. Derm: Skin is pink, warm \T\ dry. Vital Signs: 13:40 BP 126 / 84; Pulse 83; Resp 16; Temp 98.4; Pulse Ox 100% ; Height 5 ft. 3 in. (160.02 sv cm); Pain 6/10; ED Course: 12:32 Patient arrived in ED. sb2 12:32 None, None is Private Physician. sb2 13:40 Triage completed. sv 13:41 Arm band placed on Patient placed in waiting room, Patient notified of wait time. sv 14:04 [facility]C [facility]. kb 14:04 Aurelia Larsen MD is Attending Physician. kb 14:13 Gissell Valdez, RN is Primary Nurse. dm5 14:14 Patient has correct armband on for positive identification. dm5 14:14 No provider procedures requiring assistance completed. dm5 17:10 Patient did not have IV access during this emergency room visit. dm5 Administered Medications: No medications were administered Outcome: 14:57 Discharge ordered by MD. kb 15:21 Patient left the ED. dm5 15:21 Discharged to home ambulatory, with family. dm5 15:21 Condition: good 15:21 Discharge instructions given to patient, Instructed on discharge instructions, follow up and referral plans. Signatures: Lisa Lopez FNP-C FNP-Ckb Markwardt, Deana, RN RN Stella Ram RN RN Leti Guy sb2
--- NOTE | 2018-11-05 14:58 | EDPHYS ---
Physician Documentation [facility] Name: Shy Galvez Age: 22 yrs Sex: Female : 1995 Arrival Date: 11/05/2018 Time: 12:32 Bed 12 Private MD: None, None ED Physician Aurelia Larsen HPI: 11/05 16:03 This 22 yrs old Black Female presents to ER via Ambulatory with complaints of kb Productive Cough. 16:03 The patient has not experienced similar symptoms in the past. The patient has not kb recently seen a physician. 16:04 The patient presents to the emergency department with nausea and vomiting, "dry kb heaving". The estimated gestational age is 8 weeks. course: care: first appt is on Wednesday, Leakage of Fluid: none appreciated, Ultrasound: the patient had an ultrasound, which was normal, Risk/complications: no obvious risks or complications are appreciated. Previous pregnancies: in previous pregnancies patient has had. Associated signs and symptoms: Pertinent positives: nausea, "dry heaving". Pt reports she dry heaves in the mornings because she is . Noticed that a brown tint in her saliva this morning and also something white so she wanted to get looked at. Also reports cough. 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 - Social history:: Smoking status: Patient uses tobacco products, denies chronic smoking, but will smoke occasionally. - Ebola Screening: : No symptoms or risks identified at this time. ROS: 16:04 Constitutional: Negative for fever, chills, and weight loss, ENT: Negative for injury, kb pain, and discharge, Neck: Negative for injury, pain, and swelling, Cardiovascular: Negative for chest pain, palpitations, and edema, Back: Negative for injury and pain, : Negative for injury, bleeding, discharge, and swelling, MS/Extremity: Negative for injury and deformity, Skin: Negative for injury, rash, and discoloration, Neuro: Negative for headache, weakness, numbness, tingling, and seizure. 16:04 Respiratory: Positive for cough, Negative for dyspnea on exertion, hemoptysis, orthopnea, pleurisy, shortness of breath, sputum production, wheezing. 16:04 Abdomen/GI: Positive for nausea, Negative for abdominal pain, vomiting. Exam: 16:04 Constitutional: This is a well developed, well nourished patient who is awake, alert, kb and in no acute distress. Head/Face: Normocephalic, atraumatic. ENT: Nares patent. No nasal discharge, no septal abnormalities noted. Tympanic membranes are normal and external auditory canals are clear. Oropharynx with no redness, swelling, or masses, exudates, or evidence of obstruction, uvula midline. Mucous membranes moist. Neck: Trachea midline, no thyromegaly or masses palpated, and no cervical lymphadenopathy. Supple, full range of motion without nuchal rigidity, or vertebral point tenderness. No Meningismus. Chest/axilla: Normal chest wall appearance and motion. Nontender with no deformity. No lesions are appreciated. Cardiovascular: Regular rate and rhythm with a normal S1 and S2. No gallops, murmurs, or rubs. Normal PMI, no JVD. No pulse deficits. Respiratory: Lungs have equal breath sounds bilaterally, clear to auscultation and percussion. No rales, rhonchi or wheezes noted. No increased work of breathing, no retractions or nasal flaring. Abdomen/GI: Soft, non-tender, with normal bowel sounds. No distension or tympany. No guarding or rebound. No evidence of tenderness throughout. Skin: Warm, dry with normal turgor. Normal color with no rashes, no lesions, and no evidence of cellulitis. MS/ Extremity: Pulses equal, no cyanosis. Neurovascular intact. Full, normal range of motion. Neuro: Awake and alert, GCS 15, oriented to person, place, time, and situation. Cranial nerves II-XII grossly intact. Motor strength 5/5 in all extremities. Sensory grossly intact. Cerebellar exam normal. Normal gait. Vital Signs: 13:40 BP 126 / 84; Pulse 83; Resp 16; Temp 98.4; Pulse Ox 100% ; Height 5 ft. 3 in. (160.02 sv cm); Pain 6/10; MDM: 14:05 Patient medically screened. kb 16:02 Data reviewed: vital signs, nurses notes. Data interpreted: Pulse oximetry: on room air kb is 100 %. Interpretation: normal. Counseling: I had a detailed discussion with the patient and/or guardian regarding: the historical points, exam findings, and any diagnostic results supporting the discharge/admit diagnosis, lab results, the need for outpatient follow up, a family practitioner, an OB/Gyne specialist, to return to the emergency department if symptoms worsen or persist or if there are any questions or concerns that arise at home. 11/05 13:46 Order name: Influenza Screen (A ; Complete Time: 14:38 EDMS 11/05 13:46 Order name: Group A Streptococcus Rapid Sc; Complete Time: 14:38 EDMS 11/05 14:28 Order name: Throat Culture EDMS Administered Medications: No medications were administered Disposition: 17:28 Co-signature as Attending Physician, Aurelia Larsen MD. ma2 Disposition: 11/05/18 14:57 Discharged to Home. Impression: Cough. - Condition is Stable. - Discharge Instructions: Cough, Adult, [id number]. - Medication Reconciliation Form, Thank You Letter, Antibiotic Education, Prescription Opioid Use form. - Follow up: Emergency Department; When: As needed; Reason: Worsening of condition. Follow up: Private Physician; When: 2 - 3 days; Reason: Recheck today's complaints, Continuance of care, Re-evaluation by your physician. Signatures: Dispatcher [employer] EDWY Lisa Lopez FNP-C FNP-Gissell Stanley RN RN dm5 Stella Gifford RN RN sv Alzahri, Mohammad, MD MD ma2 Corrections: (The following items were deleted from the chart) 15:21 14:57 11/05/2018 14:57 Discharged to Home. Impression: Cough. Condition is Stable. dm5 Forms are Medication Reconciliation Form, Thank You Letter, Antibiotic Education, Prescription Opioid Use. Follow up: Emergency Department; When: As needed; Reason: Worsening of condition. Follow up: Private Physician; When: 2 - 3 days; Reason: Recheck today's complaints, Continuance of care, Re-evaluation by your physician. kb 16:08 16:04 Pt reports she dry heaves in the mornings because she is . Noticed that a kb brown tint in her saliva this morning and also something white so she wanted to get looked at.. kb
[2018-11-05 16:21] VITALS: BP 126/84; TEMP 98.4; O2SAT 100
== END 2018-11-05 15:21 | disposition home or self-care (01) ==
LOC: ER 12:31
DX: R05 Cough (principal); Z33.1 Pregnant state, incidental; Z72.0 Tobacco use
CPT/HCPCS: 87070; 87081; 87804; 99281

== ENCOUNTER 2018-11-25 21:21 | Emergency (ER) | payer SELFPAY ==
[2018-11-25 22:08] LABS: Absolute Lymphocytes (CBC) 3.5 K/uL (0.7-4.9); Absolute Monocytes 0.7 K/uL (0.1-1.3); Absolute Neutrophil 4.3 K/uL (1.8-8.0); Basophils % 0.5 % (0-1.3); Eosinophils % 1.2 % (0-4.4); Hematocrit 38.4 % (36.0-45.0); MPV 8.4 fL (7.6-11.3); Monocytes % 8.4 % (3.3-12.3); RBC Red Blood Cell Count 4.46 M/uL (3.86-4.86)
[2018-11-25 22:28] LABS: Urine Blood 3+ (NEG); Urine Glucose NEGATIVE (NEG); Urine Protein 1+ (NEG); Urine pH >8.5 (5.0-7.0)
[2018-11-25 22:41] LABS: BUN Blood Urea Nitrogen 8 mg/dL (7-18); Bicarbonate 25 mmol/L (21-32); Glucose Level 93 mg/dL (74-106); HCG, Quantitative 55746 mIU/mL (1-3); Potassium 3.7 mmol/L (3.5-5.1); Sodium Level 138 mmol/L (136-145)
--- NOTE | 2018-11-25 23:05 | EDPHYS ---
Physician Documentation [facility] Name: Shy Galvez Age: 23 yrs Sex: Female : 1995 Arrival Date: 11/25/2018 Time: 21:23 Bed 18 Private MD: ED Physician Amol Guerra HPI: 11/25 23:34 This 23 yrs old Black Female presents to ER via Ambulatory with complaints of Vaginal kb Bleeding, + Preg <12wks. 23:34 The patient presents to the emergency department with abdominal pain, of the left lower kb quadrant, that started yesterday, vaginal bleeding, that is light. The estimated gestational age is 11 weeks. course: care: at a clinic, Leakage of Fluid: none appreciated, Ultrasound: the patient has not had an ultrasound, Risk/complications: no obvious risks or complications are appreciated. Associated signs and symptoms: Pertinent positives: abdominal pain, vaginal bleeding, Pertinent negatives: chest pain, diarrhea, dysuria, fever, frequency, nausea, ruptured membranes, seizure, shortness of breath, vaginal discharge, vomiting. The patient has not experienced similar symptoms in the past. The patient has not recently seen a physician. 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 - Social history:: Smoking status: Patient/guardian denies using tobacco. - Ebola Screening: : No symptoms or risks identified at this time. ROS: 23:33 Constitutional: Negative for fever, chills, and weight loss, Cardiovascular: Negative kb for chest pain, palpitations, and edema, Respiratory: Negative for shortness of breath, cough, wheezing, and pleuritic chest pain, MS/Extremity: Negative for injury and deformity, Skin: Negative for injury, rash, and discoloration, Neuro: Negative for headache, weakness, numbness, tingling, and seizure. 23:33 Abdomen/GI: Positive for abdominal pain, Negative for nausea, vomiting, and diarrhea. 23:33 : Positive for vaginal bleeding. Exam: 23:33 Constitutional: This is a well developed, well nourished patient who is awake, alert, kb and in no acute distress. Head/Face: Normocephalic, atraumatic. ENT: Nares patent. No nasal discharge, no septal abnormalities noted. Tympanic membranes are normal and external auditory canals are clear. Oropharynx with no redness, swelling, or masses, exudates, or evidence of obstruction, uvula midline. Mucous membranes moist. Neck: Trachea midline, no thyromegaly or masses palpated, and no cervical lymphadenopathy. Supple, full range of motion without nuchal rigidity, or vertebral point tenderness. No Meningismus. Chest/axilla: Normal chest wall appearance and motion. Nontender with no deformity. No lesions are appreciated. Cardiovascular: Regular rate and rhythm with a normal S1 and S2. No gallops, murmurs, or rubs. Normal PMI, no JVD. No pulse deficits. Respiratory: Lungs have equal breath sounds bilaterally, clear to auscultation and percussion. No rales, rhonchi or wheezes noted. No increased work of breathing, no retractions or nasal flaring. Back: No spinal tenderness. No costovertebral tenderness. Full range of motion. Skin: Warm, dry with normal turgor. Normal color with no rashes, no lesions, and no evidence of cellulitis. MS/ Extremity: Pulses equal, no cyanosis. Neurovascular intact. Full, normal range of motion. Neuro: Awake and alert, GCS 15, oriented to person, place, time, and situation. Cranial nerves II-XII grossly intact. Motor strength 5/5 in all extremities. Sensory grossly intact. Cerebellar exam normal. Normal gait. 23:33 Abdomen/GI: Inspection: abdomen appears normal, Bowel sounds: normal, in all quadrants, Palpation: soft, in all quadrants, moderate abdominal tenderness, in the left lower quadrant. Vital Signs: 21:32 BP 147 / 83; Pulse 94; Resp 18; Temp 98; Pulse Ox 98% on R/A; Weight 74.84 kg (R); ak1 Height 5 ft. 3 in. (160.02 cm) (R); Pain 8/10; 21:32 Body Mass Index 29.23 (74.84 kg, 160.02 cm) ak1 MDM: 21:31 Patient medically screened. kb 23:32 Data reviewed: vital signs, nurses notes. Data interpreted: Pulse oximetry: on room air kb is 98 %. Interpretation: normal. Counseling: I had a detailed discussion with the patient and/or guardian regarding: the historical points, exam findings, and any diagnostic results supporting the discharge/admit diagnosis, lab results, radiology results, the need for outpatient follow up, an OB/Gyne specialist, to return to the emergency department if symptoms worsen or persist or if there are any questions or concerns that arise at home. 11/25 21:31 Order name: Quantitative Hcg; Complete Time: 22:43 kb 11/25 21:31 Order name: Abo/rh Typing; Complete Time: 22:41 kb 11/25 21:31 Order name: Basic Metabolic Panel; Complete Time: 22:43 kb 11/25 21:31 Order name: CBC with Diff; Complete Time: 22:17 kb 11/25 22:17 Order name: Urine Dipstick--Ancillary (enter results); Complete Time: 22:34 mw2 11/25 22:17 Order name: Urine --Ancillary (enter results); Complete Time: 22:34 mw2 11/25 21:31 Order name: Urine Test (obtain specimen); Complete Time: 22:02 kb 11/25 21:31 Order name: IV Saline Lock; Complete Time: 22:02 kb 11/25 21:31 Order name: Labs collected and sent; Complete Time: 22:02 kb 11/25 21:31 Order name: NPO; Complete Time: 22:02 kb 11/25 21:31 Order name: Urine Dipstick-Ancillary (obtain specimen); Complete Time: 22:02 kb 11/25 22:44 Order name: US Transvaginal Ob kb Administered Medications: No medications were administered Disposition: 11/25/18 23:04 Discharged to Home. Impression: 11 weeks gestation of . - Condition is Stable. - Discharge Instructions: First Trimester of , [id number]. - Medication Reconciliation Form, Thank You Letter, Antibiotic Education, Prescription Opioid Use form. - Follow up: Emergency Department; When: As needed; Reason: Worsening of condition. Follow up: Private Physician; When: 2 - 3 days; Reason: Recheck today's complaints, Continuance of care, Re-evaluation by your physician. Addendum: 12/03/2018 03:26 Co-signature as Attending Physician, Amol Guerra MD. g s Signatures: Dispatcher [employer] Lisa Sanders, MISTY-Key JAY-Karen Martins, RN RN ak1 Neida Elmore RN RN tl2 Amol Guerra MD MD Corrections: (The following items were deleted from the chart) 11/26 00:05 11/25 23:04 11/25/2018 23:04 Discharged to Home. Impression: 11 weeks gestation of tl2 . Condition is Stable. Forms are Medication Reconciliation Form, Thank You Letter, Antibiotic Education, Prescription Opioid Use. Follow up: Emergency Department; When: As needed; Reason: Worsening of condition. Follow up: Private Physician; When: 2 - 3 days; Reason: Recheck today's complaints, Continuance of care, Re-evaluation by your physician. kb
--- NOTE | 2018-11-25 23:05 | ER ---
Nurse's Notes [facility] Name: Shy Galvez Age: 23 yrs Sex: Female : 1995 Arrival Date: 11/25/2018 Time: 21:23 Bed 18 Private MD: Diagnosis: 11 weeks gestation of Presentation: 11/25 21:30 Presenting complaint: Patient states: vaginal spotting starting tonight. 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 Transition of care: patient was not received from another setting of care. Onset of symptoms was November 25, 2018. Risk Assessment: Do you want to hurt yourself or someone else? Patient reports no desire to harm self or others. Initial Sepsis Screen: Does the patient meet any 2 criteria? No. Patient's initial sepsis screen is negative. Does the patient have a suspected source of infection? No. Patient's initial sepsis screen is negative. Care prior to arrival: None. 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 - Social history:: Smoking status: Patient/guardian denies using tobacco. - Ebola Screening: : No symptoms or risks identified at this time. Screenin:06 Abuse screen: Denies threats or abuse. Nutritional screening: No deficits noted. tl2 Tuberculosis screening: No symptoms or risk factors identified. Fall Risk None identified. Assessment: 22:06 Obstetrical Assessment:. General: Appears in no apparent distress. comfortable, tl2 Behavior is calm, cooperative, appropriate for age. Pain: Complains of pain in suprapubic area. Neuro: Level of Consciousness is awake, alert, obeys commands, Oriented to person, place, time, situation. Cardiovascular: Denies chest pain. Respiratory: Airway is patent Respiratory effort is even, unlabored, Respiratory pattern is regular, symmetrical. GI: Reports nausea. : Reports vaginal bleeding that is moderate flow, since 4 hours ago. Derm: Skin is normal. Vital Signs: 21:32 BP 147 / 83; Pulse 94; Resp 18; Temp 98; Pulse Ox 98% on R/A; Weight 74.84 kg (R); ak1 Height 5 ft. 3 in. (160.02 cm) (R); Pain 8/10; 21:32 Body Mass Index 29.23 (74.84 kg, 160.02 cm) ak1 ED Course: 21:23 Patient arrived in ED. ag3 21:30 [facility]-C [facility]. kb 21:30 Amol Guerra MD is Attending Physician. kb 21:31 Triage completed. ak1 21:32 Arm band placed on Patient placed in an exam room, on a stretcher, Patient notified of ak1 wait time. 22:02 Neida Elmore, CONG is Primary Nurse. tl2 22:06 Patient has correct armband on for positive identification. Bed in low position. Call tl2 light in reach. Side rails up X 1. Adult w/ patient. 22:06 Inserted saline lock: 22 gauge in right antecubital area, using aseptic technique. tl2 Blood collected. 23:06 Ultrasound completed. Patient tolerated well. Note: pt refused transvaginal. 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 23:07 US Transvaginal Ob In Process Unspecified. EDMT 11/26 00:04 IV discontinued, intact, bleeding controlled, No redness/swelling at site. Pressure tl2 dressing applied. 00:04 No provider procedures requiring assistance completed. tl2 Administered Medications: No medications were administered Outcome: 11/25 23:04 Discharge ordered by . kb 11/26 00:04 Discharged to home ambulatory, with family. tl2 Condition: stable Discharge instructions given to patient, Instructed on discharge instructions, follow up and referral plans. Demonstrated understanding of instructions, follow-up care. 00:05 Patient left the ED. tl2 Signatures: Dispatcher [employer] EDMS Lisa Lopez FNP-C FNP-Karen Martins RN RN ak1 Neida Elmore RN RN tl2 Naty Jones sg3 Joellen Whittington 3
[2018-11-26 01:02] VITALS: BP 147/83; TEMP 98; O2SAT 98
--- NOTE | 2018-11-26 09:41 | RAD REPORT ---
EXAM DESCRIPTION: US - Transvaginal OB - 11/25/2018 11:08 pm CLINICAL HISTORY: with vaginal bleeding COMPARISON: October 2018 FINDINGS: The uterus measures 10 x 8 x 9 centimeters. A gestational sac is present within the endom etrium. Within this is pole with a crown-rump length 4.9 centimeters. Cardiac activity 160 crystal ts per minute Right ovary is normal in size and echotexture. Left ovary was not seen. Right and left adnexa appear unremarkable No significant free fluid is seen. IMPRESSION: Single live intrauterine with an estimated gestational age 11 weeks 5 days ED D 02/24
== END 2018-11-26 00:05 | disposition home or self-care (01) ==
LOC: ER 21:21
DX: O20.9 Hemorrhage in early pregnancy, unspecified (principal); Z3A.11 11 weeks gestation of pregnancy
CPT/HCPCS: 36415; 76817; 80048; 81003; 81025; 84702; 85025; 86900; 86901

== ENCOUNTER 2019-10-23 10:18 | Emergency (ER) | payer OTHER, SELFPAY ==
--- NOTE | 2019-10-23 12:10 | ER ---
Nurse's Notes [facility] Name: Shy Galvez Age: 23 yrs Sex: Female : 1995 Arrival Date: 10/23/2019 Time: 10:20 Bed 7 Private MD: Poornima Bergman Diagnosis: related conditions, unspecified Presentation: 10/23 10:33 Presenting complaint: Lower abdominal pain x 2 days. Denies fever/urinary s/s. hb Transition of care: patient was not received from another setting of care. Onset of symptoms was October 22, 2019. Risk Assessment: Do you want to hurt yourself or someone else? Patient reports no desire to harm self or others. Initial Sepsis Screen: Does the patient meet any 2 criteria? No. Patient's initial sepsis screen is negative. Does the patient have a suspected source of infection? No. Patient's initial sepsis screen is negative. Care prior to arrival: None. 10:33 Method Of Arrival: Ambulatory hb 10:33 Acuity: LOGAN 3 hb Historical: - Allergies: 10:35 No Known Drug Allergies; hb - Home Meds: 10:35 None [Active]; hb - PMHx: 10:35 Depression; Pancreatitis; hb - PSHx: 10:35 Tonsillectomy; hb - Immunization history:: Adult Immunizations up to date. - Social history:: Smoking status: Patient/guardian denies using tobacco, Patient/guardian denies using alcohol, street drugs, The patient lives alone. - Ebola Screening: : No symptoms or risks identified at this time. - Family history:: not pertinent. - Hospitalizations: : No recent hospitalization is reported. Screenin:30 Abuse screen: Denies threats or abuse. Denies injuries from another. Nutritional jl7 screening: No deficits noted. Tuberculosis screening: No symptoms or risk factors identified. Fall Risk None identified. Vital Signs: 10:34 BP 147 / 101; Pulse 83; Resp 16; Temp 98.2; Pulse Ox 100% on R/A; Weight 95.25 kg; hb Height 5 ft. 3 in. (160.02 cm); Pain 8/10; 10:34 Body Mass Index 37.20 (95.25 kg, 160.02 cm) hb ED Course: 10:20 Patient arrived in ED. rg4 10:24 Poornima Bergman is Private Physician. mr 10:34 Triage completed. hb 10:34 Arm band placed on. hb 11:42 Aurelia Larsen MD is Attending Physician. ma2 12:30 Patient has correct armband on for positive identification. Bed in low position. Call jl7 light in reach. Side rails up X 1. 12:30 No provider procedures requiring assistance completed. Patient did not have IV access jl7 during this emergency room visit. Administered Medications: No medications were administered Outcome: 12:09 Discharge ordered by . ma2 12:30 Discharged to home ambulatory. jl7 12:30 Condition: stable 12:30 Discharge instructions given to patient, Instructed on discharge instructions, follow up and referral plans. medication usage, Demonstrated understanding of instructions, follow-up care, medications, Prescriptions given X 1. 12:31 Patient left the ED. jl7 Signatures: Julia Alvarado mr FishmanKarla, RN RN Magy Ibarra rg4 Ish Arredondo RN RN jl7 Aurelia Larsen MD MD [facility]
--- NOTE | 2019-10-23 12:10 | EDPHYS ---
Physician Documentation [facility] Name: Shy Galvez Age: 23 yrs Sex: Female : 1995 Arrival Date: 10/23/2019 Time: 10:20 Bed 7 Private MD: Poornima Bergman ED Physician Aurelia Larsen HPI: 10/23 12:07 This 23 yrs old Black Female presents to ER via Ambulatory with complaints of Abdominal ma2 Pain. 12:07 Onset: The symptoms/episode began/occurred gradually, 1 week(s) ago. Associated signs ma2 and symptoms: Pertinent negatives: nausea and vomiting, chest pain, dysuria, fever, vaginal discharge, vomiting. Severity of pain: At its worst the pain was very mild in the emergency department the pain has resolved. The patient has not experienced similar symptoms in the past. pain resolved, was midline. Historical: - Allergies: 10:35 No Known Drug Allergies; hb - Home Meds: 10:35 None [Active]; hb - PMHx: 10:35 Depression; Pancreatitis; hb - PSHx: 10:35 Tonsillectomy; hb - Immunization history:: Adult Immunizations up to date. - Social history:: Smoking status: Patient/guardian denies using tobacco, Patient/guardian denies using alcohol, street drugs, The patient lives alone. - Ebola Screening: : No symptoms or risks identified at this time. - Family history:: not pertinent. - Hospitalizations: : No recent hospitalization is reported. ROS: 12:07 Constitutional: Negative for fever, chills, and weight loss. ma2 12:07 All other systems are negative. Exam: 12:07 Constitutional: This is a well developed, well nourished patient who is awake, alert, ma2 and in no acute distress. Chest/axilla: Normal chest wall appearance and motion. Nontender with no deformity. No lesions are appreciated. Cardiovascular: Regular rate and rhythm with a normal S1 and S2. No gallops, murmurs, or rubs. Normal PMI, no JVD. No pulse deficits. Respiratory: Lungs have equal breath sounds bilaterally, clear to auscultation and percussion. No rales, rhonchi or wheezes noted. No increased work of breathing, no retractions or nasal flaring. Abdomen/GI: Soft, non-tender, with normal bowel sounds. No distension or tympany. No guarding or rebound. No evidence of tenderness throughout. Back: No spinal tenderness. No costovertebral tenderness. Full range of motion. Skin: Warm, dry with normal turgor. Normal color with no rashes, no lesions, and no evidence of cellulitis. MS/ Extremity: Pulses equal, no cyanosis. Neurovascular intact. Full, normal range of motion. Vital Signs: 10:34 BP 147 / 101; Pulse 83; Resp 16; Temp 98.2; Pulse Ox 100% on R/A; Weight 95.25 kg; hb Height 5 ft. 3 in. (160.02 cm); Pain 8/10; 10:34 Body Mass Index 37.20 (95.25 kg, 160.02 cm) hb MDM: 11:42 Patient medically screened. ma2 12:07 Differential diagnosis: gastritis, gastroesophageal reflux disease, Irritable bowel ma2 syndrome, non-specific abd pain. Data reviewed: vital signs, nurses notes. Counseling: I had a detailed discussion with the patient and/or guardian regarding: the historical points, exam findings, and any diagnostic results supporting the discharge/admit diagnosis, the presence of at least one elevated blood pressure reading (>120/80) during this emergency department visit, the need for outpatient follow up. 10/23 11:55 Order name: Urine Dipstick--Ancillary (enter results) 10/23 11:55 Order name: Urine --Ancillary (enter results) 10/23 12:15 Order name: Urine --Ancillary EDCO 10/23 12:15 Order name: Urine Dipstick-Ancillary EDCO Administered Medications: No medications were administered Disposition: 10/23/19 12:09 Discharged to Home. Impression: related conditions, unspecified. - Condition is Stable. - Prescriptions for Vitamin 27- 0.8 mg Oral Tablet - take 1 tablet by ORAL route once daily; 30 tablet. - Medication Reconciliation Form, Thank You Letter, Antibiotic Education, Prescription Opioid Use form. - Follow up: Private Physician; When: Tomorrow; Reason: Continuance of care. - Notes: you will need an ultrasound in 1 week, return to ER if your abdominal pain recure Signatures: Dispatcher [facility] EDCO Karla Fishman RN Ish Padilla RN RN jl7 Aurelia Larsen MD MD ma2 Corrections: (The following items were deleted from the chart) 12:31 12:09 10/23/2019 12:09 Discharged to Home. Impression: related conditions, jl7 unspecified. Condition is Stable. Forms are Medication Reconciliation Form, Thank You Letter, Antibiotic Education, Prescription Opioid Use. Follow up: Private Physician; When: Tomorrow; Reason: Continuance of care. ma2
[2019-10-23 12:15] LABS: Urine Blood NEGATIVE (NEG); Urine Glucose NEGATIVE (NEG); Urine Protein NEGATIVE (NEG); Urine pH 6.5 (5.0-7.0)
[2019-10-23 12:51] VITALS: O2SAT 100
[2019-10-23 13:04] VITALS: BP 135/78; TEMP 98
== END 2019-10-23 12:31 | disposition home or self-care (01) ==
LOC: ER 10:18
DX: O26.891 Other specified pregnancy related conditions, first trimester (principal); Z3A.00 Weeks of gestation of pregnancy not specified
CPT/HCPCS: 81003; 81025; 99282

== ENCOUNTER 2019-11-01 19:11 | Emergency (ER) | payer OTHER, SELFPAY ==
[2019-11-01 21:16] LABS: Urine Blood NEGATIVE (NEG); Urine Glucose NEGATIVE (NEG); Urine Protein NEGATIVE (NEG); Urine Specific Gravity >1.030 (1.005-1.030); Urine pH 5.5 (5.0-7.0)
[2019-11-01] MEDS ORDERED: NITROFURAN MACRO 100 MG CAP PO ONE (22:18)
--- NOTE | 2019-11-01 23:01 | EDPHYS ---
Physician Documentation [facility] Name: Shy Galvez Age: 23 yrs Sex: Female : 1995 Arrival Date: 11/01/2019 Time: 19:12 Bed 25 Private MD: ED Physician Saeid Galvez HPI: 11/01 22:12 This 23 yrs old Black Female presents to ER via Ambulatory with complaints of Back alma Spasms. 22:12 The patient presents with flank pain, pelvic pain, urinary symptoms, dysuria, alma frequency. Onset: The symptoms/episode began/occurred 2 day(s) ago. Modifying factors: The symptoms are alleviated by nothing, the symptoms are aggravated by nothing. Severity of symptoms: At their worst the symptoms were mild, in the emergency department the symptoms are unchanged. The estimated gestational age is 6 weeks. 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 - Social history:: Smoking status: Patient/guardian denies using tobacco. - Ebola Screening: : No symptoms or risks identified at this time. - Family history:: not pertinent. ROS: 22:12 Constitutional: Negative for fever, chills, and weight loss, Eyes: Negative for injury, alma pain, redness, and discharge, ENT: Negative for injury, pain, and discharge, Neck: Negative for injury, pain, and swelling, Cardiovascular: Negative for chest pain, palpitations, and edema, Respiratory: Negative for shortness of breath, cough, wheezing, and pleuritic chest pain, Abdomen/GI: Negative for abdominal pain, nausea, vomiting, diarrhea, and constipation, MS/Extremity: Negative for injury and deformity, Skin: Negative for injury, rash, and discoloration, Neuro: Negative for headache, weakness, numbness, tingling, and seizure. 22:12 Back: Positive for decreased range of motion, pain at rest, pain with movement. 22:12 : Positive for urinary symptoms, small amounts, burning with urination. Exam: 22:12 Constitutional: This is a well developed, well nourished patient who is awake, alert, alma and in no acute distress. Head/Face: Normocephalic, atraumatic. Eyes: Pupils equal round and reactive to light, extra-ocular motions intact. Lids and lashes normal. Conjunctiva and sclera are non-icteric and not injected. Cornea within normal limits. Periorbital areas with no swelling, redness, or edema. ENT: Nares patent. No nasal discharge, no septal abnormalities noted. Tympanic membranes are normal and external auditory canals are clear. Oropharynx with no redness, swelling, or masses, exudates, or evidence of obstruction, uvula midline. Mucous membranes moist. Neck: Trachea midline, no thyromegaly or masses palpated, and no cervical lymphadenopathy. Supple, full range of motion without nuchal rigidity, or vertebral point tenderness. No Meningismus. Chest/axilla: Normal chest wall appearance and motion. Nontender with no deformity. No lesions are appreciated. Cardiovascular: Regular rate and rhythm with a normal S1 and S2. No gallops, murmurs, or rubs. Normal PMI, no JVD. No pulse deficits. Respiratory: Lungs have equal breath sounds bilaterally, clear to auscultation and percussion. No rales, rhonchi or wheezes noted. No increased work of breathing, no retractions or nasal flaring. Abdomen/GI: Soft, non-tender, with normal bowel sounds. No distension or tympany. No guarding or rebound. No evidence of tenderness throughout. Skin: Warm, dry with normal turgor. Normal color with no rashes, no lesions, and no evidence of cellulitis. MS/ Extremity: Pulses equal, no cyanosis. Neurovascular intact. Full, normal range of motion. Neuro: Awake and alert, GCS 15, oriented to person, place, time, and situation. Cranial nerves II-XII grossly intact. Motor strength 5/5 in all extremities. Sensory grossly intact. Cerebellar exam normal. Normal gait. Psych: Awake, alert, with orientation to person, place and time. Behavior, mood, and affect are within normal limits. 22:12 Back: pain, that is mild, ROM is normal, normal spinal alignment noted, CVA tenderness, is absent, muscle spasm, is not present. Vital Signs: 19:54 BP 139 / 91; Pulse 83; Resp 18; Temp 98.4; Pulse Ox 100% ; Weight 95.25 kg; Height 5 ea ft. 3 in. (160.02 cm); Pain 7/10; 19:54 Body Mass Index 37.20 (95.25 kg, 160.02 cm) ea MDM: 20:10 Patient medically screened. [facility] 22:14 Data reviewed: vital signs, nurses notes, lab test result(s), radiologic studies. [facility] 11/01 21:02 Order name: Urine Dipstick--Ancillary (enter results); Complete Time: 22:08 [facility] 11/01 21:02 Order name: Urine --Ancillary (enter results); Complete Time: 22:08 [facility] 11/01 20:21 Order name: Urine Dipstick-Ancillary (obtain specimen); Complete Time: 20:58 [facility] 11/01 20:21 Order name: Urine Test (obtain specimen); Complete Time: 20:58 [facility] Administered Medications: 22:17 Drug: Macrobid 100 mg Route: PO; tr5 Point of Care Testing: Urine : 21:03 hCG Reading: Positive; Control Reading: Positive; jp3 Disposition: 11/01/19 23:00 Discharged to Home. Impression: Low back pain, related conditions, unspecified, first trimester, Urinary tract infection, site not specified. - Condition is Stable. - Discharge Instructions: Back Pain, Adult, Dysuria, Musculoskeletal Pain, Urinary Tract Infection, Adult, First Trimester of , [id number], Urinary Tract Infection, Adult, Rudv-[id number], Back Pain, Adult, [id number], First Trimester of , Pelvic Rest. - Prescriptions for Vitamin 27- 0.8 mg Oral Tablet - take 1 tablet by ORAL route once daily; 30 tablet. Macrobid 100 mg Oral Capsule - take 1 capsule by ORAL route every 12 hours for 7 days; 14 capsule. - Work release form form. - Medication Reconciliation Form (11/01/19 23:00). tr5 - Thank You Letter (11/01/19 23:00). tr5 - Antibiotic Education (11/01/19 23:00). tr5 - Prescription Opioid Use (11/01/19 23:00). tr5 - Follow up: Private Physician; When: 2 - 3 days; Reason: Recheck today's complaints, Continuance of care, Re-evaluation by your physician. Follow up: Elvis Mcpherson; When: 2 - 3 days; Reason: Recheck today's complaints, Continuance of care, Re-evaluation by your physician. - Problem is new. - Symptoms have improved. Signatures: Dispatcher [employer] Saeid Del Toro MD MD cha Antunez, Elena, RN Laz Luke ea RN RN tr5
--- NOTE | 2019-11-01 23:01 | ER ---
Nurse's Notes [facility] Name: Shy Galvez Age: 23 yrs Sex: Female : 1995 Arrival Date: 11/01/2019 Time: 19:12 Bed 25 Private MD: Diagnosis: Low back pain; related conditions, unspecified, first trimester;Urinary tract infection, site not specified Presentation: 11/01 19:53 Presenting complaint: Patient states: Reports having right foot pain for the past two ea weeks, states "the pain is traveling up my leg to my lower back" Reports being 6 weeks . Transition of care: patient was not received from another setting of care. Onset of symptoms was November 01, 2019. Risk Assessment: Do you want to hurt yourself or someone else? Patient reports no desire to harm self or others. Initial Sepsis Screen: Does the patient meet any 2 criteria? No. Patient's initial sepsis screen is negative. Does the patient have a suspected source of infection? No. Patient's initial sepsis screen is negative. Care prior to arrival: None. 19:53 Method Of Arrival: Ambulatory ea 19:53 Acuity: LOGAN 4 ea Triage Assessment: 21:07 General: Appears. 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 - Social history:: Smoking status: Patient/guardian denies using tobacco. - Ebola Screening: : No symptoms or risks identified at this time. - Family history:: not pertinent. Screenin:54 Abuse screen: Denies threats or abuse. Nutritional screening: No deficits noted. ea Tuberculosis screening: No symptoms or risk factors identified. Fall Risk None identified. Assessment: 21:00 Pain: Complains of pain in right leg Pain radiates to back. Neuro: Level of tr5 Consciousness is awake, alert, obeys commands, Oriented to person, place, time, Manager E Learning are equal bilaterally Moves all extremities. Cardiovascular: Heart tones present. Respiratory: Airway is patent Respiratory effort is even, unlabored. GI: No signs and/or symptoms were reported involving the gastrointestinal system. : No signs and/or symptoms were reported regarding the genitourinary system. EENT: No signs and/or symptoms were reported regarding the EENT system. Derm: No signs and/or symptoms reported regarding the dermatologic system. Musculoskeletal: No signs and/or symptoms reported regarding the musculoskeletal system. Vital Signs: 19:54 BP 139 / 91; Pulse 83; Resp 18; Temp 98.4; Pulse Ox 100% ; Weight 95.25 kg; Height 5 ea ft. 3 in. (160.02 cm); Pain 7/10; 19:54 Body Mass Index 37.20 (95.25 kg, 160.02 cm) ea ED Course: 19:12 Patient arrived in ED. ds1 19:54 Triage completed. ea 19:56 Arm band placed on right wrist. Patient placed in an exam room, on a stretcher, on ea pulse oximetry. 19:56 Patient has correct armband on for positive identification. Bed in low position. Call ea light in reach. Adult w/ patient. 20:10 Saeid Galvez MD is Attending Physician. alma 20:26 Laz Locke, RN is Primary Nurse. tr5 21:04 Urine --Ancillary (enter results) Sent. jp3 21:04 Urine Dipstick--Ancillary (enter results) Sent. jp3 22:03 No provider procedures requiring assistance completed. Patient did not have IV access tr5 during this emergency room visit. 22:59 Elvis Mcpherson MD is Referral Physician. tr5 Administered Medications: 22:17 Drug: Macrobid 100 mg Route: PO; tr5 Point of Care Testing: Urine : 21:03 hCG Reading: Positive; Control Reading: Positive; jp3 Outcome: 22:03 Discharged to home ambulatory. tr5 22:03 Condition: stable 22:03 Discharge instructions given to patient, Instructed on discharge instructions, follow up and referral plans. Demonstrated understanding of instructions, follow-up care. 23:00 Discharge ordered by . tr5 23:00 Patient left the ED. tr5 Signatures: Saeid Galvez MD MD cha Sanford, Demi ds1 Esha Diaz, Gerard Fajardo RN, ea jp3 Laz Locke, CONG RN tr5
[2019-11-01 23:05] VITALS: BP 139/91; TEMP 98.4; O2SAT 100
== END 2019-11-01 23:00 | disposition home or self-care (01) ==
LOC: ER 19:11
DX: O26.891 Other specified pregnancy related conditions, first trimester (principal); O23.41 Unspecified infection of urinary tract in pregnancy, first trimester; M54.5 Low back pain
CPT/HCPCS: 81003; 81025; 99284

== ENCOUNTER 2019-11-24 17:36 | Emergency (ER) | payer OTHER ==
--- NOTE | 2019-11-24 19:46 | ER ---
Nurse's Notes [facility] Name: Shy Galvez Age: 24 yrs Sex: Female : 1995 Arrival Date: 11/24/2019 Time: 17:38 Bed DIS1 Private MD: Diagnosis: Acute upper respiratory infection, unspecified Presentation: 11/24 17:57 Presenting complaint: Patient states: "Im just stuffy and congested, I think i have the aj1 flu" Denies fever. Patient reports that she is 9 weeks . Transition of care: patient was not received from another setting of care. Onset of symptoms was 2019. Risk Assessment: Do you want to hurt yourself or someone else? Patient reports no desire to harm self or others. Initial Sepsis Screen: Does the patient meet any 2 criteria? No. Patient's initial sepsis screen is negative. Does the patient have a suspected source of infection? No. Patient's initial sepsis screen is negative. Care prior to arrival: None. 17:57 Method Of Arrival: Ambulatory aj 17:57 Acuity: LOGAN 4 aj1 Triage Assessment: 17:58 General: Appears in no apparent distress. comfortable, Behavior is calm, cooperative, aj1 appropriate for age. Pain: Denies pain. Neuro: Level of Consciousness is awake, alert, obeys commands, Oriented to person, place, time, situation. Cardiovascular: Patient's skin is warm and dry. Respiratory: Airway is patent Respiratory effort is even, unlabored, Respiratory pattern is regular, symmetrical. 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 - Social history:: Smoking status: Patient reports the use of cigarette tobacco products, denies chronic smoking, but will smoke occasionally. - Ebola Screening: : Patient denies travel to an Ebola-affected area in the 21 days before illness onset. Screenin:17 Abuse screen: Denies threats or abuse. Denies injuries from another. Nutritional sg screening: No deficits noted. Tuberculosis screening: No symptoms or risk factors identified. Never had TB. Fall Risk None identified. Assessment: 19:16 General: Appears in no apparent distress. well groomed, well developed, well nourished, sg Behavior is calm, cooperative, appropriate for age. Pain: Complains of pain in body aches Quality of pain is described as aching. Neuro: Level of Consciousness is awake, alert, obeys commands, Oriented to person, place, time, Speech is normal. Cardiovascular: Patient's skin is warm and dry. Chest pain is denied. Respiratory: Airway is patent Respiratory effort is even, unlabored, Respiratory pattern is regular, symmetrical. GI: Abdomen is round non-distended, Reports tolerance of fluids, tolerance of food. : No signs and/or symptoms were reported regarding the genitourinary system. EENT: No signs and/or symptoms were reported regarding the EENT system. Derm: Skin is pink, warm \\T\\ dry. Musculoskeletal: Circulation, motion, and sensation intact. Range of motion: intact in all extremities. Vital Signs: 17:58 BP 119 / 78; Pulse 97; Resp 18; Temp 97.5; Pulse Ox 99% on R/A; Weight 95.25 kg (R); aj1 Height 5 ft. 3 in. (160.02 cm) (R); Pain 0/10; 19:37 BP 130 / 78; Pulse 94; Resp 18; Temp 97.4(TE); Pulse Ox 100% on R/A; mh5 17:58 Body Mass Index 37.20 (95.25 kg, 160.02 cm) aj1 ED Course: 17:38 Patient arrived in ED. mr 17:57 Triage completed. aj1 17:58 Arm band placed on Patient placed in waiting room. aj1 19:10 Rufus Madsen NP is PHCP. pm1 19:10 Saeid Galvez MD is Attending Physician. pm1 19:12 Throat Culture Sent. sg 19:13 Elmer Smith, RN is Primary Nurse. sg 19:24 Patient has correct armband on for positive identification. Call light in reach. hb 19:50 No provider procedures requiring assistance completed. IV discontinued. sg Administered Medications: No medications were administered Outcome: 19:45 Discharge ordered by MD. pm1 19:50 Discharged to home ambulatory, with family, with friend. sg 19:50 Condition: good 19:50 Discharge instructions given to patient, Instructed on discharge instructions, follow up and referral plans. safety practices, Demonstrated understanding of instructions, follow-up care. 19:55 Patient left the ED. sg Signatures: Xochitl Guevara RN RN aj1 Elmer Smith RN RN sg Julia Alvarado mr Tena, Rufus, COMMISSIONER OF CONCILIATION COMMISSIONER OF CONCILIATION pm1 Karla Fishman RN RN Tatyana [facility] Corrections: (The following items were deleted from the chart) 17:58 17:57 Presenting complaint: Patient states: "Im just stuffy and congested, I think i aj1 have the flu" Denies fever aj1
--- NOTE | 2019-11-24 19:46 | EDPHYS ---
Physician Documentation [facility] Name: Shy Galvez Age: 24 yrs Sex: Female : 1995 Arrival Date: 11/24/2019 Time: 17:38 Bed DIS1 Private MD: ED Physician Saeid Galvez HPI: 11/24 19:25 This 24 yrs old Black Female presents to ER via Ambulatory with complaints of Flu pm1 Symptoms. 19:25 Patient present to the ER with complaints of sinus congestion. Patient reports diarrhea pm1 three days ago that has resolved. Patient wanted to be checked out for the flu because she is here with her 5 month old daughter with cough, nasal congestion and diarrhea. she is worried that she gave her child the flu. Onset: The symptoms/episode began/occurred 2 week(s) ago, and improved 3 days ago. Severity of symptoms: in the emergency department the symptoms have improved. 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 - Social history:: Smoking status: Patient reports the use of cigarette tobacco products, denies chronic smoking, but will smoke occasionally. - Ebola Screening: : Patient denies travel to an Ebola-affected area in the 21 days before illness onset. ROS: 19:25 Constitutional: Negative for fever, chills, and weight loss, Eyes: Negative for injury, pm1 pain, redness, and discharge. 19:25 Neck: Negative for injury, pain, and swelling, Cardiovascular: Negative for chest pain, palpitations, and edema, Respiratory: Negative for shortness of breath, cough, wheezing, and pleuritic chest pain, Abdomen/GI: Negative for abdominal pain, nausea, vomiting, diarrhea, and constipation, Back: Negative for injury and pain, : Negative for injury, bleeding, discharge, and swelling, MS/Extremity: Negative for injury and deformity, Skin: Negative for injury, rash, and discoloration, Neuro: Negative for headache, weakness, numbness, tingling, and seizure. 19:25 ENT: Positive for sinus congestion, Negative for drainage from ear(s), ear pain, rhinorrhea. Exam: 19:25 Constitutional: This is a well developed, well nourished patient who is awake, alert, pm1 and in no acute distress. Head/Face: Normocephalic, atraumatic. Eyes: Pupils equal round and reactive to light, extra-ocular motions intact. Lids and lashes normal. Conjunctiva and sclera are non-icteric and not injected. Cornea within normal limits. Periorbital areas with no swelling, redness, or edema. ENT: Nares patent. No nasal discharge, no septal abnormalities noted. Tympanic membranes are normal and external auditory canals are clear. Oropharynx with no redness, swelling, or masses, exudates, or evidence of obstruction, uvula midline. Mucous membranes moist. Neck: Trachea midline, no thyromegaly or masses palpated, and no cervical lymphadenopathy. Supple, full range of motion without nuchal rigidity, or vertebral point tenderness. No Meningismus. Chest/axilla: Normal chest wall appearance and motion. Nontender with no deformity. No lesions are appreciated. Cardiovascular: Regular rate and rhythm with a normal S1 and S2. No gallops, murmurs, or rubs. Normal PMI, no JVD. No pulse deficits. Respiratory: Lungs have equal breath sounds bilaterally, clear to auscultation and percussion. No rales, rhonchi or wheezes noted. No increased work of breathing, no retractions or nasal flaring. Abdomen/GI: Soft, non-tender, with normal bowel sounds. No distension or tympany. No guarding or rebound. No evidence of tenderness throughout. Back: No spinal tenderness. No costovertebral tenderness. Full range of motion. Skin: Warm, dry with normal turgor. Normal color with no rashes, no lesions, and no evidence of cellulitis. MS/ Extremity: Pulses equal, no cyanosis. Neurovascular intact. Full, normal range of motion. 19:25 Neuro: Orientation: is normal, Motor: is normal, moves all fours, Gait: is steady, at a normal pace, without difficulty. Vital Signs: 17:58 BP 119 / 78; Pulse 97; Resp 18; Temp 97.5; Pulse Ox 99% on R/A; Weight 95.25 kg (R); aj1 Height 5 ft. 3 in. (160.02 cm) (R); Pain 0/10; 19:37 BP 130 / 78; Pulse 94; Resp 18; Temp 97.4(TE); Pulse Ox 100% on R/A; mh5 17:58 Body Mass Index 37.20 (95.25 kg, 160.02 cm) aj1 MDM: 19:14 Patient medically screened. [facility] 19:45 Data reviewed: vital signs. Data interpreted: Pulse oximetry: on room air is 100 %. pm1 Interpretation: normal. Counseling: I had a detailed discussion with the patient and/or guardian regarding: the historical points, exam findings, and any diagnostic results supporting the discharge/admit diagnosis, lab results, the need for outpatient follow up, to return to the emergency department if symptoms worsen or persist or if there are any questions or concerns that arise at home. 11/24 18:00 Order name: Flu; Complete Time: 19:01 [facility] 11/24 18:00 Order name: Strep; Complete Time: 19: [facility] 11/24 18:43 Order name: Throat Culture EDMS Administered Medications: No medications were administered Disposition: 20:38 Co-signature as Attending Physician, Saedi Galvez MD I agree with the assessment and [facility] plan of care. Disposition: 11/24/19 19:45 Discharged to Home. Impression: Acute upper respiratory infection, unspecified. - Condition is Stable. - Discharge Instructions: Upper Respiratory Infection, Adult, Viral Respiratory Infection. - Medication Reconciliation Form, Thank You Letter, Antibiotic Education, Prescription Opioid Use form. - Follow up: Emergency Department; When: As needed; Reason: Worsening of condition. Follow up: Private Physician; When: 2 - 3 days; Reason: Recheck today's complaints, Continuance of care, Re-evaluation by your physician. - Problem is new. - Symptoms have improved. Signatures: Dispatcher [employer] EDMS Xochitl Guevara RN RN aj1 Elmer Smith RN RN sg Anderson, Corey, MD MD cha Therrien, Shelly, HEALTHCARE SALES REPRESENTATIVE-C HEALTHCARE SALES REPRESENTATIVE-Csnw Rufus Madsen, LYNN BLACK TOP ROLLER pm1 Corrections: (The following items were deleted from the chart) 19:55 19:45 11/24/2019 19:45 Discharged to Home. Impression: Acute upper respiratory sg infection, unspecified. Condition is Stable. Forms are Medication Reconciliation Form, Thank You Letter, Antibiotic Education, Prescription Opioid Use. Follow up: Emergency Department; When: As needed; Reason: Worsening of condition. Follow up: Private Physician; When: 2 - 3 days; Reason: Recheck today's complaints, Continuance of care, Re-evaluation by your physician. Problem is new. Symptoms have improved. pm1
[2019-11-24 20:25] VITALS: BP 119/78; TEMP 97.5; O2SAT 99
== END 2019-11-24 19:55 | disposition home or self-care (01) ==
LOC: ER 17:36
DX: J06.9 Acute upper respiratory infection, unspecified (principal); Z72.0 Tobacco use
CPT/HCPCS: 87070; 87081; 87804; 99283

== ENCOUNTER 2019-12-01 17:09 | Emergency (ER) | payer OTHER ==
[2019-12-01] MEDS ORDERED: PEN G BENZ LA 2.4 MU/4 ML SYRINGE IM ONE (18:24)
[2019-12-01] MEDS ORDERED: dexAMETHasone 10 MG/ML VIAL ONE (18:24)
--- NOTE | 2019-12-01 19:13 | ER ---
Nurse's Notes [facility] Name: Shy Galvez Age: 24 yrs Sex: Female : 1995 Arrival Date: 12/01/2019 Time: 17:10 Bed 11 Private MD: Diagnosis: Acute pharyngitis Presentation: 12/01 17:32 Presenting complaint: Patient states: "I was here last week and my strep and flu swabs aa5 were negative but I am not getting better". pt c/o sore throat and fever last night. Pt reports being 9 weeks . Transition of care: patient was not received from another setting of care. Onset of symptoms was November 2019. Risk Assessment: Do you want to hurt yourself or someone else? Patient reports no desire to harm self or others. Initial Sepsis Screen: Does the patient meet any 2 criteria? HR > 90 bpm. Does the patient have a suspected source of infection? No. Patient's initial sepsis screen is negative. Care prior to arrival: None. 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 - Coronavirus screen:: The patient has NOT traveled to [place], [place], or [place] in the past 14 days. The patient has NOT had contact with known/suspected case of Coronavirus?. - Social history:: Smoking status: Patient reports the use of cigarette tobacco products, denies chronic smoking, but will smoke occasionally. - Ebola Screening: : No symptoms or risks identified at this time. Screenin:40 Abuse screen: Denies threats or abuse. Nutritional screening: No deficits noted. aa5 Tuberculosis screening: No symptoms or risk factors identified. Fall Risk None identified. Assessment: 17:40 General: Appears uncomfortable, Behavior is calm, cooperative. Pain: Complains of pain aa5 in throat. Neuro: Level of Consciousness is awake, alert, obeys commands, Oriented to person, place, time, situation. Cardiovascular: Heart tones S1 S2 present Rhythm is regular. Respiratory: Airway is patent Respiratory effort is even, unlabored, Respiratory pattern is regular, symmetrical, Breath sounds are clear bilaterally. GI: Abdomen is round Bowel sounds present X 4 quads. Abd is soft and non tender X 4 quads. : No signs and/or symptoms were reported regarding the genitourinary system. EENT: Throat is reddened has enlarged tonsils bilaterally. Derm: Skin is dry, Skin is normal, Skin temperature is warm. Musculoskeletal: Range of motion: intact in all extremities. 18:35 Reassessment: Patient appears in no apparent distress at this time. Patient and/or hb family updated on plan of care and expected duration. Pain level reassessed. Patient is alert, oriented x 3, equal unlabored respirations, skin warm/dry/pink. Vital Signs: 17:34 BP 120 / 72; Pulse 109; Resp 16 S; Temp 98.7(TE); Pulse Ox 99% on R/A; aa5 ED Course: 17:10 Patient arrived in ED. ag5 17:26 Jahaira Mccauley FNP-C is [facility]. snw 17:26 George Wood MD is Attending Physician. snw 17:32 Arm band placed on. aa5 17:32 Patient has correct armband on for positive identification. aa5 17:33 Triage completed. aa5 17:48 Strep swab sent to lab. aa5 17:54 Nani Khan, RN is Primary Nurse. aa5 19:10 No provider procedures requiring assistance completed. Patient did not have IV access hb during this emergency room visit. Administered Medications: 18:35 Drug: Bicillin L-A 2.4 million units Route: IM; Site: Ventrogluteal RIGHT; hb 19:10 Follow up: Response: No adverse reaction hb 18:35 Drug: Decadron - Dexamethasone 10 mg Route: IVP; Site: Other; hb 19:10 Follow up: Response: No adverse reaction hb Outcome: 19:12 Discharge ordered by MD. snw 19:14 Discharged to home ambulatory, with family. hb 19:14 Condition: stable 19:14 Discharge instructions given to patient, family, Instructed on discharge instructions, follow up and referral plans. medication usage, Demonstrated understanding of instructions, follow-up care, medications. 19:19 Patient left the ED. hb Signatures: Jahaira Mccauley FNP-C SCHOOL TRANSPORTATION DIRECTOR-Csnw Nani Khan, RN RN aa5 Karla Fishman RN RN Angela Hermosillo ag5 Corrections: (The following items were deleted from the chart) 17:34 17:32 Presenting complaint: Patient states: "I was here last week and my strep and flu aa5 swabs were negative but I am not getting better". pt c/o sore throat and fever last night. aa5 18:37 17:40 Derm: Skin is pink, warm \\T\\ dry. aa5 aa5
--- NOTE | 2019-12-01 19:13 | EDPHYS ---
Physician Documentation [facility] Name: Shy Galvez Age: 24 yrs Sex: Female : 1995 Arrival Date: 12/01/2019 Time: 17:10 Bed 11 Private MD: ED Physician George Wood HPI: 12/01 19:24 This 24 yrs old Black Female presents to ER via Ambulatory with complaints of Sore snw Throat, 9 weeks .. 19:24 The patient presents with sore throat. The patient describes throat pain as raw, snw scratchy. Onset: The symptoms/episode began/occurred gradually, 2 week(s) ago, pain improved and then recurred and is constant. Severity of symptoms: At their worst the symptoms were moderate. Associated signs and symptoms: Pertinent positives: flu-like symptoms, myalgias. It is unknown whether or not the patient has had similar symptoms in the past. last week. 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 - Coronavirus screen:: The patient has NOT traveled to [place], [place], or [place] in the past 14 days. The patient has NOT had contact with known/suspected case of Coronavirus?. - Social history:: Smoking status: Patient reports the use of cigarette tobacco products, denies chronic smoking, but will smoke occasionally. - Ebola Screening: : No symptoms or risks identified at this time. ROS: 19:23 Constitutional: Negative for fever, chills, and weight loss, Eyes: Negative for injury, snw pain, redness, and discharge, Neck: Negative for injury and swelling, + anterior cervical pain Cardiovascular: Negative for chest pain, palpitations, and edema, Respiratory: Negative for shortness of breath, cough, wheezing, and pleuritic chest pain, Abdomen/GI: Negative for abdominal pain, nausea, vomiting, diarrhea, and constipation, Back: Negative for injury and pain, : Negative for injury, bleeding, discharge, and swelling, MS/Extremity: Negative for injury and deformity, Skin: Negative for injury, rash, and discoloration, Neuro: Negative for headache, weakness, numbness, tingling, and seizure. 19:23 ENT: Positive for hoarseness, sore throat. Exam: 19:21 Constitutional: This is a well developed, well nourished patient who is awake, alert, snw and in no acute distress. Head/Face: Normocephalic, atraumatic. Eyes: Pupils equal round and reactive to light, extra-ocular motions intact. Lids and lashes normal. Conjunctiva and sclera are non-icteric and not injected. Cornea within normal limits. Periorbital areas with no swelling, redness, or edema. Neck: Trachea midline, no thyromegaly or masses palpated, and no cervical lymphadenopathy. Supple, full range of motion without nuchal rigidity, or vertebral point tenderness. No Meningismus. Chest/axilla: Normal chest wall appearance and motion. Nontender with no deformity. No lesions are appreciated. Respiratory: Lungs have equal breath sounds bilaterally, clear to auscultation and percussion. No rales, rhonchi or wheezes noted. No increased work of breathing, no retractions or nasal flaring. Abdomen/GI: Soft, non-tender, with normal bowel sounds. No distension or tympany. No guarding or rebound. No evidence of tenderness throughout. Back: No spinal tenderness. No costovertebral tenderness. Full range of motion. Skin: Warm, dry with normal turgor. Normal color with no rashes, no lesions, and no evidence of cellulitis. MS/ Extremity: Pulses equal, no cyanosis. Neurovascular intact. Full, normal range of motion. Neuro: Awake and alert, GCS 15, oriented to person, place, time, and situation. Cranial nerves II-XII grossly intact. Motor strength 5/5 in all extremities. Sensory grossly intact. Cerebellar exam normal. Normal gait. Psych: Awake, alert, with orientation to person, place and time. Behavior, mood, and affect are within normal limits. 19:21 ENT: TM's: are normal, Nose: is normal, Mouth: is normal, Posterior pharynx: erythema, that is mild, Voice: mildly, no trismus, no dysphagia. 19:21 Cardiovascular: Rate: tachycardic, Rhythm: regular, Heart sounds: normal. Vital Signs: 17:34 BP 120 / 72; Pulse 109; Resp 16 S; Temp 98.7(TE); Pulse Ox 99% on R/A; aa5 MDM: 17:37 Patient medically screened. snw 19:13 Data reviewed: vital signs, nurses notes. Data interpreted: Pulse oximetry: on room air snw is 99 %. Interpretation: normal. Counseling: I had a detailed discussion with the patient and/or guardian regarding: the historical points, exam findings, and any diagnostic results supporting the discharge/admit diagnosis, lab results, the need for outpatient follow up, to return to the emergency department if symptoms worsen or persist or if there are any questions or concerns that arise at home. ED course: Concern for retropharyngeal abscess, cannot CT second to early , pt without airway compromise, able to tolerate po. 12/01 17:37 Order name: Strep; Complete Time: 18:16 snw 12/01 18:18 Order name: Throat Culture EDMS Administered Medications: 18:35 Drug: Bicillin L-A 2.4 million units Route: IM; Site: Ventrogluteal RIGHT; hb 19:10 Follow up: Response: No adverse reaction hb 18:35 Drug: Decadron - Dexamethasone 10 mg Route: IVP; Site: Other; hb 19:10 Follow up: Response: No adverse reaction hb Disposition: 12/02 02:47 Co-signature as Attending Physician, George Wood MD I agree with the assessment and kdr plan of care. Disposition: 12/01/19 19:12 Discharged to Home. Impression: Acute pharyngitis. - Condition is Stable. - Discharge Instructions: Fever, Adult, Pharyngitis, Rehydration, Adult. - Medication Reconciliation Form, Thank You Letter, Antibiotic Education, Prescription Opioid Use form. - Follow up: Emergency Department; When: As needed; Reason: Worsening of condition. Follow up: Private Physician; When: 2 - 3 days; Reason: Recheck today's complaints, Continuance of care, Re-evaluation by your physician. - Problem is an acute exacerbation. - Symptoms are unchanged. Signatures: Dispatcher [employer] EDMS George Wood MD MD [facility] Jahaira Mccauley, COOPERAGE SHOP SUPERVISOR-C COOPERAGE SHOP SUPERVISOR-Csnw Nani Khan, RN RN aa5 Karla Fishman RN RN hb Corrections: (The following items were deleted from the chart) 12/01 19:19 19:12 12/01/2019 19:12 Discharged to Home. Impression: Acute pharyngitis. Condition is hb Stable. Forms are Medication Reconciliation Form, Thank You Letter, Antibiotic Education, Prescription Opioid Use. Follow up: Emergency Department; When: As needed; Reason: Worsening of condition. Follow up: Private Physician; When: 2 - 3 days; Reason: Recheck today's complaints, Continuance of care, Re-evaluation by your physician. Problem is an acute exacerbation. Symptoms are unchanged. snw
[2019-12-01 19:29] VITALS: BP 120/72; TEMP 98.7; O2SAT 99
== END 2019-12-01 19:19 | disposition home or self-care (01) ==
LOC: ER 17:09
DX: O26.891 Other specified pregnancy related conditions, first trimester (principal); J02.9 Acute pharyngitis, unspecified; F17.210 Nicotine dependence, cigarettes, uncomplicated
CPT/HCPCS: 87070; 87081; 96372; 96374; 99283; J0561; J1100

== ENCOUNTER 2019-12-06 20:36 | Emergency (ER) | payer OTHER ==
[2019-12-06] MEDS ORDERED: NA CHLORIDE 0.9% 1,000 ML ONE (22:19)
[2019-12-06 22:38] LABS: Absolute Lymphocytes (CBC) 2.7 K/uL (0.7-4.9); Basophils % 0.4 % (0-1.3); Hematocrit 38.6 % (36.0-45.0); Lymphocytes % 17.1 % (15.3-44.8); MPV 8.2 fL (7.6-11.3); RBC Red Blood Cell Count 4.66 M/uL (3.86-4.86)
[2019-12-06 22:51] LABS: BUN Blood Urea Nitrogen 5 mg/dL (7-18); Bicarbonate 28 mmol/L (21-32); Glucose Level 77 mg/dL (74-106); Potassium 3.7 mmol/L (3.5-5.1); Sodium Level 138 mmol/L (136-145)
--- NOTE | 2019-12-06 23:06 | ER ---
Nurse's Notes [facility] Name: Shy Galvez Age: 24 yrs Sex: Female : 1995 Arrival Date: 12/06/2019 Time: 20:39 Bed 15 Private MD: Diagnosis: Acute pharyngitis;Unspecified External Vaginal Lesions Presentation: 12/06 21:23 Presenting complaint: Patient states: she was seen here last week for similar symptoms bb of sore throat which she still has and now she has a rash on her vulva, her urine is dark and she felt dizzy earlier when she was in the tub, pt is taking vitamins for . Transition of care: patient was not received from another setting of care. Onset of symptoms was November 29, 2019. Risk Assessment: Do you want to hurt yourself or someone else? Patient reports no desire to harm self or others. Initial Sepsis Screen: Does the patient meet any 2 criteria? No. Patient's initial sepsis screen is negative. Does the patient have a suspected source of infection? No. Patient's initial sepsis screen is negative. Care prior to arrival: None. 21:23 Method Of Arrival: Ambulatory bb 21:23 Acuity: LOGAN 3 bb COMPLIANCE INTERN: 21:25 5, 2, Living 2, LMP 08/19/2019, Verified, EDC 05/25/2020, bb Gestational age from LMP: 15 weeks 5 days Historical: - Allergies: 21:25 No Known Allergies; bb - Home Meds: 21:25 Vitamin Oral [Active]; bb - PMHx: 21:25 Depression; Pancreatitis; bb - PSHx: 21:25 Tonsillectomy; bb - Immunization history:: Adult Immunizations up to date. - Coronavirus screen:: The patient has NOT traveled to [place], [place], or [place] in the past 14 days. Proceed with normal triage process as indicated. - Social history:: Smoking status: unknown. - Ebola Screening: : No symptoms or risks identified at this time. Screenin:30 Abuse screen: Denies threats or abuse. Nutritional screening: No deficits noted. jb4 Tuberculosis screening: No symptoms or risk factors identified. Fall Risk None identified. Assessment: 21:30 General: Appears in no apparent distress. uncomfortable, Behavior is calm, cooperative, jb4 appropriate for age. Pain: Complains of pain in throat, pubic area Pain does not radiate. Pain currently is 7 out of 10 on a pain scale. Neuro: Level of Consciousness is awake, alert, obeys commands, Oriented to person, place, time, situation. Cardiovascular: Patient's skin is warm and dry. Respiratory: Airway is patent Respiratory effort is even, unlabored, Respiratory pattern is regular, symmetrical. GI: No signs and/or symptoms were reported involving the gastrointestinal system. : No signs and/or symptoms were reported regarding the genitourinary system. EENT: Throat is reddened with gag reflex present. Derm: Skin is intact, Skin is pink, warm \T\ dry. Musculoskeletal: Circulation, motion, and sensation intact. Range of motion: intact in all extremities. 22:30 Reassessment: Patient appears in no apparent distress at this time. Patient and/or jb4 family updated on plan of care and expected duration. Pain level reassessed. Patient is alert, oriented x 3, equal unlabored respirations, skin warm/dry/pink. 23:36 Reassessment: Patient appears in no apparent distress at this time. Patient and/or jb4 family updated on plan of care and expected duration. Pain level reassessed. Patient is alert, oriented x 3, equal unlabored respirations, skin warm/dry/pink. Vital Signs: 21:25 BP 128 / 77; Pulse 113; Resp 16 S; Temp 98.4(O); Pulse Ox 100% on R/A; Weight 97.52 kg bb (R); Height 5 ft. 3 in. (160.02 cm) (R); Pain 7/10; 12/07 00:00 BP 126 / 88; Pulse 92; Resp 16; Pulse Ox 100% on R/A; jb4 12/06 21:25 Body Mass Index 38.09 (97.52 kg, 160.02 cm) bb ED Course: 12/06 20:39 Patient arrived in ED. ag3 21:25 Triage completed. bb 21:25 Arm band placed on Patient placed in an exam room, on a stretcher, on pulse oximetry. bb Family accompanied patient. 21:30 Patient has correct armband on for positive identification. Bed in low position. Call jb4 light in reach. Side rails up X 1. Pulse ox on. NIBP on. 21:35 Joseph Carver PA is PHCP. jr8 21:35 Chad Sargent MD is Attending Physician. jr8 22:14 Duncan Mcneil, RN is Primary Nurse. jb4 23:44 Assist provider with pelvic exam: Performed by Joseph OTT Specimens sent to lab. buck 12/07 00:03 IV discontinued, intact, bleeding controlled, No redness/swelling at site. Pressure jb4 dressing applied. Administered Medications: 12/06 22:25 Drug: NS 0.9% 1000 ml Route: IV; Rate: 1000 ml; Site: right antecubital; 23:30 Follow up: Response: No adverse reaction; IV Status: Completed infusion jb4 23:18 Drug: Bicillin L-A 1.2 million units Route: IM; Site: left gluteus; jb4 23:45 Follow up: Response: No adverse reaction jb4 Outcome: 23:05 Discharge ordered by . jr8 12/07 00:03 Discharged to home ambulatory, with family. jb4 Condition: stable Discharge instructions given to patient, Instructed on discharge instructions, follow up and referral plans. medication usage, Demonstrated understanding of instructions, follow-up care, medications, Prescriptions given X 1. 00:07 Patient left the ED. jb4 Signatures: Hermelinda Marie RN RN Joseph Ashton PA PA jr8 Duncan Mcneil, RN RN jb4 Vicky Acevedo Joellen Whittington 3 Leigh Omalley RN RN ca1 Corrections: (The following items were deleted from the chart) 12/06 21:25 21:08 Presenting complaint: ca1 bb
--- NOTE | 2019-12-06 23:06 | EDPHYS ---
Physician Documentation [facility] Name: Shy Galvez Age: 24 yrs Sex: Female : 1995 Arrival Date: 12/06/2019 Time: 20:39 Bed 15 Private MD: ED Physician Chad Sargent HPI: 12/06 22:40 This 24 yrs old Black Female presents to ER via Ambulatory with complaints of Vaginal jr8 Pain, Sore Throat. 22:40 Onset: The symptoms/episode began/occurred gradually, 5 day(s) ago. Modifying factors: jr8 The symptoms are alleviated by nothing, the symptoms are aggravated by nothing. Associated signs and symptoms: The patient has no apparent associated signs or symptoms. Severity of symptoms: At their worst the symptoms were mild, in the emergency department the symptoms are unchanged. Patient started with sore throat 5 days ago that is not resolving. Cultures were sent and retrieved today showing Group G strep. Stated that now she also has external vaginal irritation on right labia that is causing pain . 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 - Coronavirus screen:: The patient has NOT traveled to [place], [place], or [place] in the past 14 days. Proceed with normal triage process as indicated. - Social history:: Smoking status: unknown. - Ebola Screening: : No symptoms or risks identified at this time. ROS: 22:40 Eyes: Negative for injury, pain, redness, and discharge, Neck: Negative for injury, jr8 pain, and swelling, Cardiovascular: Negative for chest pain, palpitations, and edema, Respiratory: Negative for shortness of breath, cough, wheezing, and pleuritic chest pain, Abdomen/GI: Negative for abdominal pain, nausea, vomiting, diarrhea, and constipation, Back: Negative for injury and pain, MS/Extremity: Negative for injury and deformity, Skin: Negative for injury, rash, and discoloration, Neuro: Negative for headache, weakness, numbness, tingling, and seizure. 22:40 ENT: Positive for sore throat. 22:40 : Positive for vaginal pain. Exam: 22:40 Eyes: Pupils equal round and reactive to light, extra-ocular motions intact. Lids and jr8 lashes normal. Conjunctiva and sclera are non-icteric and not injected. Cornea within normal limits. Periorbital areas with no swelling, redness, or edema. ENT: Nares patent. No nasal discharge, no septal abnormalities noted. Tympanic membranes are normal and external auditory canals are clear. Oropharynx with no redness, swelling, or masses, exudates, or evidence of obstruction, uvula midline. Mucous membranes moist. Neck: Trachea midline, no thyromegaly or masses palpated, and no cervical lymphadenopathy. Supple, full range of motion without nuchal rigidity, or vertebral point tenderness. No Meningismus. Cardiovascular: Regular rate and rhythm with a normal S1 and S2. No gallops, murmurs, or rubs. Normal PMI, no JVD. No pulse deficits. Respiratory: Lungs have equal breath sounds bilaterally, clear to auscultation and percussion. No rales, rhonchi or wheezes noted. No increased work of breathing, no retractions or nasal flaring. Abdomen/GI: Soft, non-tender, with normal bowel sounds. No distension or tympany. No guarding or rebound. No evidence of tenderness throughout. Back: No spinal tenderness. No costovertebral tenderness. Full range of motion. Skin: Warm, dry with normal turgor. Normal color with no rashes, no lesions, and no evidence of cellulitis. MS/ Extremity: Pulses equal, no cyanosis. Neurovascular intact. Full, normal range of motion. Neuro: Awake and alert, GCS 15, oriented to person, place, time, and situation. Cranial nerves II-XII grossly intact. Motor strength 5/5 in all extremities. Sensory grossly intact. Cerebellar exam normal. Normal gait. 23:01 : Pelvic Exam: External exam: reveals ulcerations on external genitalia, left labia. jr8 Vital Signs: 21:25 BP 128 / 77; Pulse 113; Resp 16 S; Temp 98.4(O); Pulse Ox 100% on R/A; Weight 97.52 kg bb (R); Height 5 ft. 3 in. (160.02 cm) (R); Pain 7/10; 12/07 00:00 BP 126 / 88; Pulse 92; Resp 16; Pulse Ox 100% on R/A; jb4 12/06 21:25 Body Mass Index 38.09 (97.52 kg, 160.02 cm) bb MDM: 12/06 22:02 Patient medically screened. [facility] 23:01 Data reviewed: vital signs, nurses notes, lab test result(s). Data interpreted: Pulse jr8 oximetry: on room air is 100 %. Interpretation: normal. Counseling: I had a detailed discussion with the patient and/or guardian regarding: the historical points, exam findings, and any diagnostic results supporting the discharge/admit diagnosis, lab results, the need for outpatient follow up, an OB/Gyne specialist, to return to the emergency department if symptoms worsen or persist or if there are any questions or concerns that arise at home. ED course: Detailed discussion with patient that she needs close f/u with OB since she is and that there is a possibility that she may have herpes. Will treat as such and will send off for culture. Patient understood and will f/u with OB. 12/06 22:03 Order name: CBC with Diff; Complete Time: 22:40 [facility] 12/06 22:03 Order name: Basic Metabolic Panel; Complete Time: 22:54 [facility] 12/06 22:03 Order name: IV; Complete Time: 22:25 [facility] 12/06 22:53 Order name: HSV CULTURE W/REFLEX TYPING EDMS Administered Medications: 22:25 Drug: NS 0.9% 1000 ml Route: IV; Rate: 1000 ml; Site: right antecubital; 23:30 Follow up: Response: No adverse reaction; IV Status: Completed infusion jb4 23:18 Drug: Bicillin L-A 1.2 million units Route: IM; Site: left gluteus; 4 23:45 Follow up: Response: No adverse reaction jb4 Disposition: 12/07 05:50 Co-signature as Attending Physician, Chad Sargent MD I agree with the assessment and tw4 plan of care. Disposition: 12/06/19 23:05 Discharged to Home. Impression: Acute pharyngitis, Unspecified External Vaginal Lesions. - Condition is Stable. - Discharge Instructions: Strep Throat. - Prescriptions for Acyclovir 800 mg Oral Tablet - take 1 tablet by ORAL route 2 times per day for 5 days; 10 tablet. - Medication Reconciliation Form, Thank You Letter, Antibiotic Education, Prescription Opioid Use form. - Follow up: Private Physician; When: 2 - 3 days; Reason: Recheck today's complaints, Continuance of care, Re-evaluation by your physician. - Problem is new. - Symptoms have improved. Signatures: Dispatcher [employer] EDNH Hermelinda Marie RN RN Joseph Ashton PA PA jr8 Duncan Mcneil RN RN jb4 Vicky Acevedo Terrence, MD MD tw4 Corrections: (The following items were deleted from the chart) 00:07 12/06 23:05 12/06/2019 23:05 Discharged to Home. Impression: Acute pharyngitis; jb4 Unspecified External Vaginal Lesions. Condition is Stable. Prescriptions for Acyclovir 800 mg Oral Tablet - take 1 tablet by ORAL route 2 times per day for 5 days; 10 tablet. and Forms are Medication Reconciliation Form, Thank You Letter, Antibiotic Education, Prescription Opioid Use. Follow up: Private Physician; When: 2 - 3 days; Reason: Recheck today's complaints, Continuance of care, Re-evaluation by your physician. Problem is new. Symptoms have improved. jr8
[2019-12-06] MEDS ORDERED: PEN G BENZ LA 1.2MU/2ML SYRINGE IM ONE (23:08)
[2019-12-07 12:35] VITALS: BP 126/88; O2SAT 100
[2019-12-07 12:36] VITALS: TEMP 98.4
== END 2019-12-07 00:07 | disposition home or self-care (01) ==
LOC: ER 20:36
DX: O26.892 Other specified pregnancy related conditions, second trimester (principal); N89.8 Other specified noninflammatory disorders of vagina; J02.9 Acute pharyngitis, unspecified
CPT/HCPCS: 85025; 80048; 36415; 87252; 96360; 96372; 99284; J0561; J7030

== ENCOUNTER 2020-08-31 11:25 | Emergency (ER) | payer OTHER ==
[2020-08-31] MEDS ORDERED: NA CHLORIDE 0.9% 1,000 ML ONE (12:41)
[2020-08-31 12:49] LABS: Absolute Lymphocytes (CBC) 3.4 K/uL (0.7-4.9); Basophils % 0.6 % (0-1.3); Hematocrit 42.9 % (36.0-45.0); Lymphocytes % 50.3 % (15.3-44.8); MPV 9.1 fL (7.6-11.3); RBC Red Blood Cell Count 5.22 M/uL (3.86-4.86)
[2020-08-31 13:15] LABS: BUN Blood Urea Nitrogen 6 mg/dL (7-18); Bicarbonate 29 mmol/L (21-32); Glucose Level 94 mg/dL (74-106); HCG, Quantitative < 1 mIU/mL (1-3); Potassium 3.4 mmol/L (3.5-5.1); Sodium Level 141 mmol/L (136-145)
--- NOTE | 2020-08-31 13:36 | EDPHYS ---
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 - Social history:: Smoking status: Patient reports the use of cigarette tobacco products, smokes one-half pack cigarettes per day. Vital Signs: 11:46 BP 140 / 98; Pulse 79; Resp 16; Temp 97.0; Pulse Ox 99% on R/A; Weight 99.79 kg; Height ss 5 ft. 3 in. (160.02 cm); 11:46 Body Mass Index 38.97 (99.79 kg, 160.02 cm) ss MDM: 12:08 Patient medically screened. snw 12:09 Data reviewed: vital signs, nurses notes, lab test result(s). Awaiting: pt remains in snw the bathroom for urine collection. 08/31 11:39 Order name: Quantitative Hcg; Complete Time: 13:17 snw 08/31 11:39 Order name: Abo/rh Typing; Complete Time: 13:33 snw 08/31 11:39 Order name: Basic Metabolic Panel; Complete Time: 13:17 snw 08/31 11:39 Order name: CBC with Diff; Complete Time: 12:54 snw 08/31 11:39 Order name: IV Saline Lock; Complete Time: 12:33 snw 08/31 11:39 Order name: Labs collected and sent; Complete Time: 12:32 snw 08/31 11:39 Order name: NPO; Complete Time: 12:04 snw Administered Medications: No medications were administered Point of Care Testing: Urine : 14:44 U never collected. Quant <1 ll1 Disposition: 14:31 Co-signature as Attending Physician, Markie Gallegos MD. rn Disposition: 08/31/20 13:35 Discharged to Home. Impression: Vaginal bleeding. - Condition is Stable. - Discharge Instructions: Premenstrual Syndrome. - Prescriptions for Mobic 7.5 mg Oral Tablet - take 1 tablet by ORAL route once daily take with food; 20 tablet. - Medication Reconciliation Form, Thank You Letter, Antibiotic Education, Prescription Opioid Use form. - Follow up: Private Physician; When: As needed; Reason: Worsening of condition. Follow up: Emergency Department; When: As needed; Reason: Worsening of condition. Signatures: Dispatcher [employer] EDTX Jahaira Amador, MISTY-C ACCOUNTING OFFICER-Xavierw Markie Gallegos MD MD rn Yodit Jerome RN RN ss Corrections: (The following items were deleted from the chart) 13:46 11:39 Urine Test ordered. [facility] 13:46 11:39 Urine Dipstick-Ancillary ordered. [facility] 13:48 13:35 08/31/2020 13:35 Discharged to Home. Impression: Vaginal bleeding. Condition is ss Stable. Forms are Medication Reconciliation Form, Thank You Letter, Antibiotic Education, Prescription Opioid Use. Follow up: Private Physician; When: As needed; Reason: Worsening of condition. Follow up: Emergency Department; When: As needed; Reason: Worsening of condition. [facility]
--- NOTE | 2020-08-31 13:36 | ER ---
Nurse's Notes [facility] Name: Shy Galvez Age: 24 yrs Sex: Female : 1995 Arrival Date: 08/31/2020 Time: 11:28 Bed 15 Private MD: Diagnosis: Vaginal bleeding Presentation: 08/31 11:46 Chief complaint: Patient states: vaginal bleeding that began 5 days ago. Pt believes ss she is . LMP was July 2020. Pt had a recent 05-14-20 and got a depo shot for the first time 3 days later. Coronavirus screen: Client denies travel out of the [place] in the last 14 days. Ebola Screen: Patient denies exposure to infectious person. Patient denies travel to an Ebola-affected area in the 21 days before illness onset. Initial Sepsis Screen: Does the patient meet any 2 criteria? No. Patient's initial sepsis screen is negative. Does the patient have a suspected source of infection? No. Patient's initial sepsis screen is negative. Risk Assessment: Do you want to hurt yourself or someone else? Patient reports no desire to harm self or others. Onset of symptoms was August 26, 2020. 11:46 Method Of Arrival: Ambulatory ss 11:46 Acuity: LOGAN 3 ss Triage Assessment: 14:44 General: Appears in no apparent distress. Behavior is calm, cooperative. ll1 DESILVERIZER: 14:44 LMP 07/28/2020 ll1 Historical: - Allergies: 11:51 No Known Allergies; ss - PMHx: 11:51 Depression; Pancreatitis; ss - PSHx: 11:51 Tonsillectomy; ss - Immunization history:: Adult Immunizations up to date. - Social history:: Smoking status: Patient reports the use of cigarette tobacco products, smokes one-half pack cigarettes per day. Screenin:43 Abuse screen: Denies threats or abuse. Nutritional screening: No deficits noted. ll1 Tuberculosis screening: No symptoms or risk factors identified. Fall Risk IV access (20 points). Total Leon Fall Scale indicates No Risk (0-24 pts). Assessment: 11:20 General: Appears in no apparent distress. Behavior is calm, cooperative, appropriate ll1 for age. Pain: Complains of pain in pelvic Quality of pain is described as crampy, Pain began. Neuro: No deficits noted. Cardiovascular: No deficits noted. Respiratory: No deficits noted. GI: Abdomen is flat, Bowel sounds present X 4 quads. Abd is soft and non tender X 4 quads. Reports cramping. : Reports vaginal bleeding that is bright red, with clots. 12:20 Reassessment: Patient and/or family updated on plan of care and expected duration. Pain ll1 level reassessed. Patient is alert, oriented x 3, equal unlabored respirations, skin warm/dry/pink. 13:20 Reassessment: Patient and/or family updated on plan of care and expected duration. Pain ll1 level reassessed. Patient is alert, oriented x 3, equal unlabored respirations, skin warm/dry/pink. 13:46 Reassessment: Patient appears in no apparent distress at this time. Patient and/or ss family updated on plan of care and expected duration. Pain level reassessed. Patient is alert, oriented x 3, equal unlabored respirations, skin warm/dry/pink. 14:00 Obstetrical Assessment: General assessment: awake and alert. ll1 Vital Signs: 11:46 BP 140 / 98; Pulse 79; Resp 16; Temp 97.0; Pulse Ox 99% on R/A; Weight 99.79 kg; Height ss 5 ft. 3 in. (160.02 cm); 11:46 Body Mass Index 38.97 (99.79 kg, 160.02 cm) ss Vitals: 14:44 Heart Tones n/a. ll1 ED Course: 11:28 Patient arrived in ED. ds1 11:51 Triage completed. ss 11:51 Arm band placed on right wrist. ss 11:54 Jahaira Amador FNP-C is PHCP. snw 11:54 Markie Gallegos MD is Attending Physician. snw 12:03 Denisa Graves RN is Primary Nurse. ll1 12:30 Inserted saline lock: 22 gauge in right antecubital area, using aseptic technique. ll1 Blood collected. 13:46 No provider procedures requiring assistance completed. IV discontinued, intact, ss bleeding controlled, No redness/swelling at site. Pressure dressing applied. 14:44 Patient has correct armband on for positive identification. Bed in low position. Call ll1 light in reach. Side rails up X 1. Administered Medications: No medications were administered Point of Care Testing: Urine : 14:44 U never collected. Quant <1 ll1 Outcome: 13:35 Discharge ordered by . jeremy 13:46 Discharged to home ambulatory. ss 13:46 Condition: good 13:46 Discharge instructions given to patient, Instructed on discharge instructions, follow up and referral plans. medication usage, Demonstrated understanding of instructions, follow-up care, medications, Prescriptions given X 1. 13:48 Patient left the ED. Signatures: Jahaira Amador, MISTY-C CASKET ASSEMBLER-Martha Pennington ds1 Yodit Jerome RN RN Denisa Graves RN RN ll1 Corrections: (The following items were deleted from the chart) 19:55 14:43 Obstetrical Assessment: General assessment: awake and alert, ll1 ll1
[2020-08-31 13:59] VITALS: BP 140/98; TEMP 97; O2SAT 99
== END 2020-08-31 13:48 | disposition home or self-care (01) ==
LOC: ER 11:25
DX: N93.9 Abnormal uterine and vaginal bleeding, unspecified (principal); F17.210 Nicotine dependence, cigarettes, uncomplicated
CPT/HCPCS: 85025; 80048; 36415; 86900; 86901; 84702; 99284; J7030

== ENCOUNTER 2021-02-17 14:45 | Emergency (ER) | payer SELFPAY ==
--- NOTE | 2021-02-17 17:32 | ER ---
Nurse's Notes [facility] Name: Shy Galvez Age: 25 yrs Sex: Female : 1995 Arrival Date: 02/17/2021 Time: 14:48 Bed Waiting Private MD: Diagnosis: Presentation: 02/17 14:59 Coronavirus screen: Client denies travel out of the [place] in the last 14 days. At this ca1 time, the client does not indicate any symptoms associated with coronavirus-19. Ebola Screen: Patient negative for fever greater than or equal to 101.5 degrees Fahrenheit, and additional compatible Ebola Virus Disease symptoms Patient denies exposure to infectious person. Patient denies travel to an Ebola-affected area in the 21 days before illness onset. No symptoms or risks identified at this time. Initial Sepsis Screen: Does the patient meet any 2 criteria? No. Patient's initial sepsis screen is negative. Does the patient have a suspected source of infection? No. Patient's initial sepsis screen is negative. Risk Assessment: Do you want to hurt yourself or someone else? Patient reports no desire to harm self or others. Onset of symptoms was February 17, 2021. 14:59 Acuity: LOGAN 3 ca1 14:59 Method Of Arrival: Ambulatory ca1 14:59 Chief complaint: Patient states: , Reports lower abdominal pain, suprapubic ca1 pain since last night. Denies urinary symptoms. 17:30 Note Called pt on the phone. Pt states, " I had to go pick my daughter from school and ca1 I am not coming back now". 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 - Social history:: Smoking status: Patient reports the use of cigarette tobacco products, smokes one-half pack cigarettes per day. Vital Signs: 14:59 BP 127 / 87; Pulse 107; Resp 16 S; Temp 97.6(TE); Pulse Ox 99% on R/A; Weight 88.45 kg ca1 (R); Height 5 ft. 3 in. (160.02 cm) (R); Pain 8/10; 14:59 Body Mass Index 34.54 (88.45 kg, 160.02 cm) ca1 ED Course: 14:48 Patient arrived in ED. as 15:00 Triage completed. ca1 15:03 Arm band placed on right wrist. ca1 16:58 Kavon Vásquez PA is PHCP. [facility] 16:58 Saeid Galvez MD is Attending Physician. [facility] 16:58 Patient's name was called from ER [facility]. No response. aa5 Administered Medications: No medications were administered Outcome: 17:31 Patient left the ED. ca1 Signatures: Kavon Vásquez PA PA jmm Martinez, Amelia as Calderon, Audri RN RN aa5 Leigh Omalley RN RN ca1 Corrections: (The following items were deleted from the chart) 17:01 16:58 Patient's name was called from ER [facility]. No response. Unable to locate patient. aa5 Will disposition as left without being seen by a provider. aa5
[2021-02-17 17:37] VITALS: BP 127/87; TEMP 97.6; O2SAT 99
== END 2021-02-17 17:31 | disposition left against medical advice (07) ==
LOC: ER 14:45
DX: Z53.21 Procedure and treatment not carried out due to patient leaving prior to being seen by health care provider (principal)
CPT/HCPCS: 99281

== ENCOUNTER 2021-03-06 00:15 | Emergency (ER) | payer OTHER, SELFPAY ==
--- NOTE | 2021-03-06 00:43 | EDPHYS ---
Physician Documentation [facility] Name: Shy Galvez Age: 25 yrs Sex: Female : 1995 Arrival Date: 03/06/2021 Time: 00:19 Bed Waiting Private MD: ED Physician Maverick Meeks HPI: 03/06 00:40 This 25 yrs old Black Female presents to ER via Ambulatory with complaints of HERPES jr8 OUTBREAK, 6WEEKS . 00:40 Patient with history of herpes with break outs in past. Stated that she is 6 weeks jr8 and is experiencing a break out in the labial region. Denies any other problems at this time . Severity of symptoms: At their worst the symptoms were mild in the emergency department the symptoms are unchanged. The patient has experienced similar episodes in the past, several times. The patient has not recently seen a physician. 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 - Social history:: Smoking status: unknown. ROS: 00:40 Eyes: Negative for injury, pain, redness, and discharge, ENT: Negative for injury, jr8 pain, and discharge, Neck: Negative for injury, pain, and swelling, Cardiovascular: Negative for chest pain, palpitations, and edema, Respiratory: Negative for shortness of breath, cough, wheezing, and pleuritic chest pain, Abdomen/GI: Negative for abdominal pain, nausea, vomiting, diarrhea, and constipation, Back: Negative for injury and pain, MS/Extremity: Negative for injury and deformity, Neuro: Negative for headache, weakness, numbness, tingling, and seizure. 00:40 Skin: Positive for lesions. Exam: 00:40 Constitutional: This is a well developed, well nourished patient who is awake, alert, jr8 and in no acute distress. Cardiovascular: Regular rate and rhythm with a normal S1 and S2. No gallops, murmurs, or rubs. Normal PMI, no JVD. No pulse deficits. Respiratory: Lungs have equal breath sounds bilaterally, clear to auscultation and percussion. No rales, rhonchi or wheezes noted. No increased work of breathing, no retractions or nasal flaring. Skin: Warm, dry with normal turgor. Normal color with no rashes, no lesions, and no evidence of cellulitis. MS/ Extremity: Pulses equal, no cyanosis. Neurovascular intact. Full, normal range of motion. Neuro: Awake and alert, GCS 15, oriented to person, place, time, and situation. Cranial nerves II-XII grossly intact. Motor strength 5/5 in all extremities. Sensory grossly intact. Cerebellar exam normal. Normal gait. Vital Signs: 00:37 BP 127 / 82; Pulse 78; Resp 16 S; Temp 97.6(O); Pulse Ox 100% on R/A; Weight 87.09 kg bb (R); Height 5 ft. 3 in. (160.02 cm) (R); Pain 8/10; 00:37 Body Mass Index 34.01 (87.09 kg, 160.02 cm) bb MDM: 00:39 Data reviewed: vital signs, nurses notes, and as a result, I will discharge patient. jr8 Data interpreted: Pulse oximetry: on room air is 100 %. Interpretation: normal. Counseling: I had a detailed discussion with the patient and/or guardian regarding: the historical points, exam findings, and any diagnostic results supporting the discharge/admit diagnosis, the need for outpatient follow up, an OB/Gyne specialist, to return to the emergency department if symptoms worsen or persist or if there are any questions or concerns that arise at home. 00:43 Patient medically screened. jr8 Administered Medications: 00:50 Drug: Acyclovir 800 mg Route: PO; bb 00:50 Follow up: Response: Medication administered at discharge. bb Disposition: 03:04 Co-signature as Attending Physician, Maverick Meeks MD. pkl Disposition: 03/06/21 00:43 Discharged to Home. Impression: Herpesviral infection of genitalia and urogenital tract. - Condition is Stable. - Discharge Instructions: Genital Herpes. - Prescriptions for Acyclovir 800 mg Oral Tablet - take 1 tablet by ORAL route 2 times per day for 5 days; 10 tablet. - Medication Reconciliation Form, Thank You Letter, Antibiotic Education, Prescription Opioid Use form. - Follow up: Private Physician; When: As needed; Reason: Recheck today's complaints, Continuance of care, Re-evaluation by your physician. - Problem is new. - Symptoms have improved. Signatures: Maverick Meeks MD MD pkl Ballard, Brenda, RN RN Joseph Ashton PA PA jr8 Corrections: (The following items were deleted from the chart) 00:51 00:43 03/06/2021 00:43 Discharged to Home. Impression: Herpesviral infection of bb genitalia and urogenital tract. Condition is Stable. Forms are Medication Reconciliation Form, Thank You Letter, Antibiotic Education, Prescription Opioid Use. Follow up: Private Physician; When: As needed; Reason: Recheck today's complaints, Continuance of care, Re-evaluation by your physician. Problem is new. Symptoms have improved. jr8
--- NOTE | 2021-03-06 00:43 | ER ---
Nurse's Notes [facility] Name: Shy Galvez Age: 25 yrs Sex: Female : 1995 Arrival Date: 03/06/2021 Time: 00:19 Bed Waiting Private MD: Diagnosis: Herpesviral infection of genitalia and urogenital tract Presentation: 03/06 00:37 Chief complaint: Patient states: she is having a herpes outbreak. Coronavirus screen: bb At this time, the client does not indicate any symptoms associated with coronavirus-19. Ebola Screen: No symptoms or risks identified at this time. Initial Sepsis Screen: Does the patient meet any 2 criteria? No. Patient's initial sepsis screen is negative. Does the patient have a suspected source of infection? No. Patient's initial sepsis screen is negative. Risk Assessment: Do you want to hurt yourself or someone else? Patient reports no desire to harm self or others. Onset of symptoms was March 06, 2021. 00:37 Method Of Arrival: Ambulatory bb 00:37 Acuity: LOGAN 5 bb Triage Assessment: 00:38 General: Appears in no apparent distress. Behavior is calm, cooperative. Pain: bb Complains of pain in pelvis. Neuro: Level of Consciousness is awake, alert. Cardiovascular: No deficits noted. Respiratory: Respiratory effort is even, unlabored, Respiratory pattern is regular. : Reports she is having a herpes outbreak which she has had in the past. Derm: Skin is dry, Skin is normal, Skin temperature is warm. Musculoskeletal: Circulation, motion, and sensation intact. 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 - Social history:: Smoking status: unknown. Assessment: 00:49 Reassessment: pt discharged from triage. bb Vital Signs: 00:37 BP 127 / 82; Pulse 78; Resp 16 S; Temp 97.6(O); Pulse Ox 100% on R/A; Weight 87.09 kg bb (R); Height 5 ft. 3 in. (160.02 cm) (R); Pain 8/10; 00:37 Body Mass Index 34.01 (87.09 kg, 160.02 cm) bb ED Course: 00:19 Patient arrived in ED. cf2 00:38 Triage completed. bb 00:38 Arm band placed on Joseph OTT in triage for pt evaluation pt to be prescribed bb medication and discharged pt agrees to plan of care. 00:39 Joseph Carver PA is PHCP. marie 00:39 Maverick Meeks MD is Attending Physician. jr8 Administered Medications: 00:50 Drug: Acyclovir 800 mg Route: PO; bb 00:50 Follow up: Response: Medication administered at discharge. bb Outcome: 00:43 Discharge ordered by . jr8 00:50 Discharged to home ambulatory. bb 00:50 Condition: stable 00:50 Discharge instructions given to patient, Instructed on discharge instructions, follow up and referral plans. medication usage, Demonstrated understanding of instructions, follow-up care, medications, Prescriptions given X 1. 00:51 Patient left the ED. bb Signatures: Hermelinda Marie, RN RN Joseph Ashton PA PA jr8 Pb Alonso cf2
[2021-03-06] MEDS ORDERED: ACYCLOVIR 400 MG TABLET ONE (01:01)
[2021-03-06 01:12] VITALS: BP 127/82; TEMP 97.6; O2SAT 100
== END 2021-03-06 00:51 | disposition home or self-care (01) ==
LOC: ER 00:15
DX: O98.311 Other infections with a predominantly sexual mode of transmission complicating pregnancy, first trimester (principal); O26.41 Herpes gestationis, first trimester; A60.00 Herpesviral infection of urogenital system, unspecified; Z3A.01 Less than 8 weeks gestation of pregnancy
CPT/HCPCS: 99283

== ENCOUNTER 2021-03-15 11:09 | Emergency (ER) | payer OTHER, SELFPAY ==
--- NOTE | 2021-03-15 12:20 | EDPHYS ---
Physician Documentation [facility] Name: Shy Galvez Age: 25 yrs Sex: Female : 1995 Arrival Date: 03/15/2021 Time: 11:12 Bed 18 Private MD: ED Physician Saeid Galvez HPI: 03/15 12:16 This 25 yrs old Black Female presents to ER via Ambulatory with complaints of Vaginal pm1 Bleeding, 8 Weeks Preg. 12:16 The patient presents with vaginal bleeding that is. Onset: The symptoms/episode pm1 began/occurred 1 hour(s) ago. Modifying factors: The symptoms are alleviated by nothing, the symptoms are aggravated by nothing. Associated signs and symptoms: Pertinent positives: cramping. Severity of symptoms: in the emergency department the symptoms are unchanged. The patient is sexually active. The patient has not recently seen a physician. 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 - Social history:: Smoking status: Patient reports the use of cigarette tobacco products, smokes one-half pack cigarettes per day. ROS: 12:16 Positive for vaginal bleeding. pm1 12:16 Constitutional: Negative for fever, chills, and weight loss, Cardiovascular: Negative for chest pain, palpitations, and edema, Respiratory: Negative for shortness of breath, cough, wheezing, and pleuritic chest pain. 12:16 MS/Extremity: Negative for injury and deformity, Skin: Negative for injury, rash, and discoloration. 12:16 Neuro: Negative for headache, weakness, numbness, tingling, and seizure. 12:16 Abdomen/GI: Positive for abdominal pain, of the suprapubic area, Negative for nausea, vomiting, and diarrhea. 12:16 Back: Positive for of the low back area, pain. Exam: 12:16 Constitutional: This is a well developed, well nourished patient who is awake, alert, pm1 and in no acute distress. Head/Face: Normocephalic, atraumatic. 12:16 Back: No spinal tenderness. No costovertebral tenderness. Full range of motion. 12:16 Skin: Warm, dry with normal turgor. Normal color with no rashes, no lesions, and no evidence of cellulitis. MS/ Extremity: Pulses equal, no cyanosis. Neurovascular intact. Full, normal range of motion. 12:16 Cardiovascular: Rate: normal, Rhythm: regular, Pulses: no pulse deficits are appreciated. 12:16 Respiratory: Exam negative for acute changes, respiratory distress, shortness of breath. 12:16 Abdomen/GI: Inspection: abdomen appears normal. 12:16 Neuro: Orientation: is normal, Mentation: is normal, Motor: is normal, moves all fours, Gait: is steady, at a normal pace, without difficulty. Vital Signs: 11:41 BP 119 / 69; Pulse 83; Resp 17; Temp 97.6(TE); Pulse Ox 100% on R/A; Weight 83.91 kg; jl7 Height 5 ft. 3 in. (160.02 cm); Pain 8/10; 11:41 Body Mass Index 32.77 (83.91 kg, 160.02 cm) jl7 MDM: 11:59 Patient medically screened. [facility] 12:15 Data reviewed: vital signs. pm1 12:16 Refusal of service: The patient/guardian displays adequate decision making capability pm1 and despite a detailed discussion of alternatives, benefits, risks, and consequences refuses: complete work up for vaginal bleeding: labs, urine, ultrasound. She wants to follow up with Dr. Mcpherson instead of work up in the ER. 12:16 ED course: Will sign out the patient against medical advice because I unable to rule pm1 out ectopic among other differentials without a workup. 03/15 12:03 Order name: Urine Test (obtain specimen) pm1 03/15 12:03 Order name: IV Saline Lock pm1 03/15 12:03 Order name: Labs collected and sent pm1 03/15 12:03 Order name: NPO pm1 03/15 12:03 Order name: Urine Dipstick-Ancillary (obtain specimen) pm1 Administered Medications: No medications were administered Disposition: 03/15/21 12:19 Patient has left against medical advice. Impression: Other specified abnormal uterine and vaginal bleeding. - Patients states they are going to Home. - Condition is Undetermined. - Discharge Instructions: Abnormal Uterine Bleeding. Follow up: Emergency Department; When: As needed; Reason: Worsening of condition. Follow up: Elvis Mcpherson MD; When: Upon discharge from the Emergency Department; Reason: Recheck today's complaints, Continuance of care, Re-evaluation by your physician. - Problem is new. - Symptoms are unchanged. Addendum: 03/17/2021 09:39 Co-signature as Attending Physician, Saeid Galvez MD I agree with the assessment and c espinoza plan of care. Signatures: Dispatcher [employer] EDCA Saeid Galvez MD MD cha Marinas, Patrick, RETAIL BRANCH MANAGER RETAIL BRANCH MANAGER pm1 Ish Arredondo RN RN jl7 Kathryn Lopez kj1 Corrections: (The following items were deleted from the chart) 03/15 12:32 12:19 03/15/2021 12:19 Patients has left against medical advice. Impression: Other kj1 specified abnormal uterine and vaginal bleeding. Patient states they are going to Home. Condition is Undetermined. Follow up: Emergency Department; When: As needed; Reason: Worsening of condition. Follow up: Elvis Mcpherson; When: Upon discharge from the Emergency Department; Reason: Recheck today's complaints, Continuance of care, Re-evaluation by your physician. Problem is new. Symptoms are unchanged. pm1
--- NOTE | 2021-03-15 12:20 | ER ---
Nurse's Notes [facility] Name: Shy Galvez Age: 25 yrs Sex: Female : 1995 Arrival Date: 03/15/2021 Time: 11:12 Bed 18 Private MD: Diagnosis: Other specified abnormal uterine and vaginal bleeding Presentation: 03/15 11:41 Chief complaint: Patient states: Noticed about an hour ago a small amount of bleeding, jl7 reports low back and low abdominal pain, no cramping. Reports vaginal aching with walking started at the same time. Coronavirus screen: Client denies travel out of the [place] in the last 14 days. At this time, the client does not indicate any symptoms associated with coronavirus-19. Ebola Screen: No symptoms or risks identified at this time. Initial Sepsis Screen: Does the patient meet any 2 criteria? No. Patient's initial sepsis screen is negative. Does the patient have a suspected source of infection? No. Patient's initial sepsis screen is negative. Risk Assessment: Do you want to hurt yourself or someone else? Patient reports no desire to harm self or others. Onset of symptoms was March 15, 2021 at 10:45. Care prior to arrival: None. 11:41 Method Of Arrival: Ambulatory [facility] 11:41 Acuity: LOGAN 3 jl7 Triage Assessment: 11:44 General: Appears in no apparent distress. uncomfortable, Behavior is cooperative, jl7 anxious. Pain: Complains of pain in low back area, right lower quadrant and left lower quadrant Pain currently is 8 out of 10 on a pain scale. : Reports vaginal bleeding that is bright red, spotty. 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 - Social history:: Smoking status: Patient reports the use of cigarette tobacco products, smokes one-half pack cigarettes per day. Screenin:34 Abuse screen: Denies threats or abuse. Denies injuries from another. Nutritional bp screening: No deficits noted. Tuberculosis screening: No symptoms or risk factors identified. Fall Risk None identified. Assessment: 12:33 General: PT LEFT AMA, REFUSING ALL TREATMENT AND TESTING. PT COUNSELED TO REMAIN BY bp PROVIDER AND STAFF, BUT REFUSED. Vital Signs: 11:41 BP 119 / 69; Pulse 83; Resp 17; Temp 97.6(TE); Pulse Ox 100% on R/A; Weight 83.91 kg; jl7 Height 5 ft. 3 in. (160.02 cm); Pain 8/10; 11:41 Body Mass Index 32.77 (83.91 kg, 160.02 cm) jl7 ED Course: 11:12 Patient arrived in ED. cl3 11:43 Triage completed. jl7 11:44 Arm band placed on right wrist. jl7 11:59 Rufus Madsen NP is PHCP. pm1 11:59 Saeid Galvez MD is Attending Physician. pm1 12:15 Patient has correct armband on for positive identification. Bed in low position. Call bp light in reach. Side rails up X2. 12:17 Kristofer Desouza, RN is Primary Nurse. bp 12:19 Elvis Mcpherson MD is Referral Physician. pm1 12:35 No provider procedures requiring assistance completed. Patient did not have IV access bp during this emergency room visit. Administered Medications: No medications were administered Outcome: 12:32 Patient left the ED. kj1 12:35 AMA AMA form signed bp Signatures: Rufus Madsen NP BRAND PLANNER pm1 Ish Arredondo RN RN jl7 Kristofer Desouza, CONG RN Kathryn Garcia kj1 Becky Graves cl3
[2021-03-15 12:43] VITALS: BP 119/69; TEMP 97.6; O2SAT 100
== END 2021-03-15 12:32 | disposition left against medical advice (07) ==
LOC: ER 11:09
DX: O20.9 Hemorrhage in early pregnancy, unspecified (principal); Z3A.08 8 weeks gestation of pregnancy; O99.331 Smoking (tobacco) complicating pregnancy, first trimester; F17.210 Nicotine dependence, cigarettes, uncomplicated; Z53.20 Procedure and treatment not carried out because of patient's decision for unspecified reasons; O99.511 Diseases of the respiratory system complicating pregnancy, first trimester; J45.909 Unspecified asthma, uncomplicated; O99.341 Other mental disorders complicating pregnancy, first trimester; F32.9 Major depressive disorder, single episode, unspecified
CPT/HCPCS: 99281

== ENCOUNTER 2021-05-15 23:37 | Emergency (ER) | payer OTHER ==
[2021-05-16 00:05] LABS: Urine Blood Negative (Negative); Urine Glucose Negative (Negative); Urine Protein Negative (Negative); Urine pH 7.5 (5.0-7.0)
[2021-05-16 00:11] LABS: Basophils % 0.9 % (0-1.3); Hematocrit 39.1 % (36.0-45.0); Lymphocytes % 40.1 % (15.3-44.8); MPV 8.9 fL (7.6-11.3); RBC Red Blood Cell Count 4.66 M/uL (3.86-4.86)
[2021-05-16 00:38] LABS: ALT/SGPT 15 U/L (12-78); AST/SGOT 10 U/L (15-37); Albumin 3.1 g/dL (3.4-5.0); Alkaline Phosphatase 57 U/L (45-117); BUN Blood Urea Nitrogen 4 mg/dL (7-18); Bicarbonate 26 mmol/L (21-32); Bilirubin Direct < 0.1 mg/dL (0-0.2); Bilirubin Total 0.2 mg/dL (0.2-1.0); Glucose Level 90 mg/dL (74-106); HCG, Quantitative 14780 mIU/mL (1-3); Lipase 123 U/L (73-393); Potassium 3.6 mmol/L (3.5-5.1); Protein, Total 7.4 g/dL (6.4-8.2); Sodium Level 138 mmol/L (136-145)
--- NOTE | 2021-05-16 01:06 | EDPHYS ---
Physician Documentation [facility] Name: Shy Galvez Age: 25 yrs Sex: Female : 1995 Arrival Date: 05/15/2021 Time: 23:38 Bed 6 Private MD: ED Physician Saeid Galvez HPI: 05/15 23:42 This 25 yrs old Black Female presents to ER via EMS with complaints of Abdominal Pain, alma 16 WKS . 23:42 The patient presents with abdominal pain in the upper abdomen, in the lower abdomen, alma abdominal distention in the lower abdomen. Onset: The symptoms/episode began/occurred 1 day(s) ago. The symptoms do not radiate. Associated signs and symptoms: none. The symptoms are described as crampy. Modifying factors: The symptoms are alleviated by nothing, the symptoms are aggravated by nothing. Severity of pain: At its worst the pain was mild in the emergency department the pain is unchanged. The patient has not experienced similar symptoms in the past. 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 - Social history:: Smoking status: Patient reports the use of cigarette tobacco products, smokes one-half pack cigarettes per day. - Family history:: not pertinent. ROS: 23:42 Constitutional: Negative for fever, chills, and weight loss, Eyes: Negative for injury, alma pain, redness, and discharge, ENT: Negative for injury, pain, and discharge, Neck: Negative for injury, pain, and swelling, Cardiovascular: Negative for chest pain, palpitations, and edema, Respiratory: Negative for shortness of breath, cough, wheezing, and pleuritic chest pain, Back: Negative for injury and pain, : Negative for injury, bleeding, discharge, and swelling, MS/Extremity: Negative for injury and deformity, Skin: Negative for injury, rash, and discoloration, Neuro: Negative for headache, weakness, numbness, tingling, and seizure, Psych: Negative for depression, anxiety, suicide ideation, homicidal ideation, and hallucinations, Allergy/Immunology: Negative for hives, rash, and allergies, Endocrine: Negative for neck swelling, polydipsia, polyuria, polyphagia, and marked weight changes. 23:42 Abdomen/GI: Positive for abdominal pain, abdominal cramps, of the right upper quadrant, left upper quadrant, right lower quadrant and left lower quadrant. Exam: 23:42 Constitutional: This is a well developed, well nourished patient who is awake, alert, alma and in no acute distress. Head/Face: Normocephalic, atraumatic. Eyes: Pupils equal round and reactive to light, extra-ocular motions intact. Lids and lashes normal. Conjunctiva and sclera are non-icteric and not injected. Cornea within normal limits. Periorbital areas with no swelling, redness, or edema. ENT: Nares patent. No nasal discharge, no septal abnormalities noted. Tympanic membranes are normal and external auditory canals are clear. Oropharynx with no redness, swelling, or masses, exudates, or evidence of obstruction, uvula midline. Mucous membranes moist. Neck: Trachea midline, no thyromegaly or masses palpated, and no cervical lymphadenopathy. Supple, full range of motion without nuchal rigidity, or vertebral point tenderness. No Meningismus. Chest/axilla: Normal chest wall appearance and motion. Nontender with no deformity. No lesions are appreciated. Cardiovascular: Regular rate and rhythm with a normal S1 and S2. No gallops, murmurs, or rubs. Normal PMI, no JVD. No pulse deficits. Respiratory: Lungs have equal breath sounds bilaterally, clear to auscultation and percussion. No rales, rhonchi or wheezes noted. No increased work of breathing, no retractions or nasal flaring. Back: No spinal tenderness. No costovertebral tenderness. Full range of motion. Female : Normal external genitalia. Skin: Warm, dry with normal turgor. Normal color with no rashes, no lesions, and no evidence of cellulitis. MS/ Extremity: Pulses equal, no cyanosis. Neurovascular intact. Full, normal range of motion. Neuro: Awake and alert, GCS 15, oriented to person, place, time, and situation. Cranial nerves II-XII grossly intact. Motor strength 5/5 in all extremities. Sensory grossly intact. Cerebellar exam normal. Normal gait. Psych: Awake, alert, with orientation to person, place and time. Behavior, mood, and affect are within normal limits. 23:42 Abdomen/GI: Inspection: gravid appearance, Bowel sounds: normal, Palpation: mild abdominal tenderness, in the right lower quadrant and left lower quadrant, Liver: no appreciated palpable abnormalities, Hernia: not appreciated. Vital Signs: 23:39 BP 128 / 83; Pulse 93; Resp 16; Temp 98.3; Pulse Ox 100% on R/A; Weight 90.72 kg; 8 Height 5 ft. 3 in. (160.02 cm); Pain 05/17; 05/16 01:20 BP 115 / 74; Pulse 85; Resp 16; Pulse Ox 100% on R/A; ak2 05/15 23:39 Body Mass Index 35.43 (90.72 kg, 160.02 cm) 8 MDM: 05/15 23:40 Patient medically screened. [facility] 23:44 Differential diagnosis: cholecystitis, Cholelithiasis, non-specific abd pain, alma pancreatitis, urinary tract infection. Data reviewed: vital signs, nurses notes, lab test result(s). 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 Counseling: I had a detailed discussion with the patient and/or guardian regarding: the historical points, exam findings, and any diagnostic results supporting the discharge/admit diagnosis, lab results. 05/15 23:41 Order name: Abo/rh Typing; Complete Time: 00:38 [facility] 05/15 23:41 Order name: Basic Metabolic Panel; Complete Time: 01: [facility] 05/15 23:41 Order name: CBC with Diff; Complete Time: 00:38 [facility] 05/15 23:41 Order name: Quantitative Hcg; Complete Time: 01: [facility] 05/15 23:41 Order name: LFT's; Complete Time: 01: [facility] 05/15 23:41 Order name: Lipase; Complete Time: 01: [facility] 05/15 23:41 Order name: IV Saline Lock; Complete Time: 00:00 [facility] 05/15 23:41 Order name: Labs collected and sent; Complete Time: 00:00 [facility] 05/15 23:41 Order name: NPO; Complete Time: 23:47 alma 05/15 23:41 Order name: Urine Culture [facility] 05/16 00:05 Order name: Urine Dipstick-Ancillary; Complete Time: 00:38 EDMS 05/16 00:06 Order name: Urine --Ancillary (enter results); Complete Time: 01:02 tt3 05/16 00:10 Order name: Urine Dipstick-Ancillary EDAL 05/15 23:41 Order name: Urine Dipstick-Ancillary (obtain specimen); Complete Time: 00:11 alma 05/15 23:41 Order name: Urine Test (obtain specimen); Complete Time: 00:11 alma 05/15 23:41 Order name: FHT's; Complete Time: 00:25 alma Administered Medications: 23:47 Drug: NS 0.9% 1000 ml Route: IV; Rate: 1 bolus; Site: right antecubital; ak2 Disposition Summary: 05/16/21 01:05 Discharge Ordered Location: Home [facility] Problem: new alma Symptoms: have improved alma Condition: Stable alma Diagnosis - 16 weeks gestation of alma - related conditions, unspecified, second trimester alma - Other specified related conditions, second trimester alma Followup: alma - With: Private Physician - When: 1 - 2 days - Reason: Recheck today's complaints, Continuance of care, Re-evaluation by your physician Followup: alma - With: Elvis Mcpherson MD - When: 1 - 2 days - Reason: Recheck today's complaints, Re-evaluation by your physician Discharge Instructions: - Discharge Summary Sheet alma - Abdominal Pain During alma - Care alma - Second Trimester of alma Forms: - Medication Reconciliation Form alma - Thank You Letter alma - Antibiotic Education alma - Prescription Opioid Use alma Signatures: Dispatcher [employer] EDSaeid Campuzano MD MD cha Malcaba, Joseph RN RN Kvng Dupree2
--- NOTE | 2021-05-16 01:06 | ER ---
Nurse's Notes [facility] Name: Shy Galvez Age: 25 yrs Sex: Female : 1995 Arrival Date: 05/15/2021 Time: 23:38 Bed 6 Private MD: Diagnosis: 16 weeks gestation of ; related conditions, unspecified, second trimester;Other specified related conditions, second trimester Presentation: 05/15 23:39 Chief complaint: EMS states: patient is 16 weeks and has been complaining of jm8 abdominal pain for 1 week. Denies discharge, bleeding, nausea vomiting. Coronavirus screen: Client denies travel out of the [place] in the last 14 days. Ebola Screen: Patient negative for fever greater than or equal to 101.5 degrees Fahrenheit, and additional compatible Ebola Virus Disease symptoms Patient denies exposure to infectious person. Patient denies travel to an Ebola-affected area in the 21 days before illness onset. Initial Sepsis Screen: Does the patient meet any 2 criteria? No. Patient's initial sepsis screen is negative. Does the patient have a suspected source of infection? No. Patient's initial sepsis screen is negative. Risk Assessment: Do you want to hurt yourself or someone else? Patient reports no desire to harm self or others. Onset of symptoms was May 08, 2021. 23:39 Method Of Arrival: EMS: [place] [id number] 23:39 Acuity: LOGAN 3 jm8 Triage Assessment: 23:42 General: Appears in no apparent distress. comfortable. General: Behavior is calm, jm8 cooperative, appropriate for age. Pain: Complains of pain in abdomen. EENT: No deficits noted. No signs and/or symptoms were reported regarding the EENT system. Neuro: No deficits noted. Level of Consciousness is awake, alert, obeys commands, Oriented to person, place, time. Cardiovascular: Reports. Respiratory: No deficits noted. GI: Reports lower abdominal pain, upper abdominal pain. : No deficits noted. No signs and/or symptoms were reported regarding the genitourinary system. Derm: No deficits noted. No signs and/or symptoms reported regarding the dermatologic system. Musculoskeletal: No deficits noted. No signs and/or symptoms reported regarding the musculoskeletal system. 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 - Home Meds: 23:42 Vitamin Oral [Active]; jm8 - PMHx: 23:42 Asthma; Depression; Pancreatitis; 8 - PSHx: 23:42 None; jm8 - Immunization history:: Adult Immunizations up to date, Client reports having NOT received the Covid vaccine. - Social history:: Smoking status: Patient reports the use of cigarette tobacco products, smokes one-half pack cigarettes per day. - Family history:: not pertinent. Screenin:42 Abuse screen: Denies threats or abuse. Denies injuries from another. Nutritional [facility] screening: No deficits noted. Tuberculosis screening: No symptoms or risk factors identified. Fall Risk None identified. Assessment: 23:43 GI: Bowel sounds present X 4 quads. Abdomen is tender to palpation. [facility] 05/16 00:25 Reassessment: heart tones 110. informed. [facility] 00:47 Reassessment: Patient and/or family updated on plan of care and expected duration. Pain ak2 level reassessed. Vital Signs: 05/15 23:39 BP 128 / 83; Pulse 93; Resp 16; Temp 98.3; Pulse Ox 100% on R/A; Weight 90.72 kg; [facility] Height 5 ft. 3 in. (160.02 cm); Pain 7/10; 05/16 01:20 BP 115 / 74; Pulse 85; Resp 16; Pulse Ox 100% on R/A; ak2 05/15 23:39 Body Mass Index 35.43 (90.72 kg, 160.02 cm) [facility] ED Course: 05/15 23:38 Patient arrived in ED. cf2 23:40 Saeid Galvez MD is Attending Physician. amla 23:[address] [facility] 23:42 Kvng Zayas is Primary Nurse. ak2 23:44 Patient has correct armband on for positive identification. Bed in low position. Call [facility] light in reach. Side rails up X2. Adult w/ patient. 23:44 Arm band placed on right wrist. [facility] 05/16 01:03 Elivs Mcpherson MD is Referral Physician. alma 01:21 IV discontinued. ak2 Administered Medications: 05/15 23:47 Drug: NS 0.9% 1000 ml Route: IV; Rate: 1 bolus; Site: right antecubital; ak2 Outcome: 05/16 01:05 Discharge ordered by MD. marquez 01:21 Discharged to home ambulatory. ak2 01:21 Condition: good 01:21 Discharge instructions given to patient. 01:21 Patient left the ED. ak2 Signatures: Saeid Galvez MD MD cha Frazier, Celesta 2 Art Viera RN RN jm8 Kvng Zayas ak2
[2021-05-16 01:37] VITALS: TEMP 98.3; O2SAT 100
[2021-05-16 01:39] VITALS: BP 115/74
== END 2021-05-16 01:21 | disposition home or self-care (01) ==
LOC: ER 23:37
DX: O26.892 Other specified pregnancy related conditions, second trimester (principal); Z3A.16 16 weeks gestation of pregnancy
CPT/HCPCS: 36415; 80048; 80076; 81003; 81025; 83690; 84702; 85025; 86900; 86901; 87086; 87088; 99283

== ENCOUNTER 2023-06-11 12:13 | Emergency (ER) | payer OTHER ==
[2023-06-11 12:54] LABS: Specific Gravity 1.026 (1.005-1.030)
[2023-06-11 12:56] LABS: Specific Gravity 1.026 (1.005-1.030); Urine Bacteria <20 /HPF (<20); Urine Bilirubin NEGATIVE (Negative); Urine Blood 2+ (Negative); Urine Clarity Clear (Clear); Urine Color Light-Yellow (Yellow); Urine Glucose NEGATIVE (Negative); Urine Mucus Slight /HPF (None Seen); Urine Protein NEGATIVE (Negative); Urine Urobilinogen Normal (Normal)
--- NOTE | 2023-06-11 14:00 | RAD REPORT ---
EXAM DESCRIPTION: US - Pelvis Complete - 06/11/2023 1:08 pm CLINICAL HISTORY: Pelvic pain COMPARISON: April 2016 FINDINGS: The bladder is poorly distended which limits evaluation. The patient declined to have an e ndovaginal sonogram The uterus measures 7 x 3 x 5 cm. The endometrial stripe is poorly visualized but probably is not thi ckened. Fibroid is not seen. The ovaries are normal in size and echotexture. The right and left adnexa unremarkable No significant free fluid is seen. IMPRESSION: Grossly normal pelvic ultrasound
--- NOTE | 2023-06-11 14:15 | EDPHYS ---
Physician Documentation [facility] Name: Shy Galvez Age: 27 yrs Sex: Female : 1995 Arrival Date: 06/11/2023 Time: 12:13 Bed 7 Private MD: ED Physician Quentin Maloney HPI: 06/11 17:24 This 27 yrs old Black Female presents to ER via Ambulatory with complaints of Vaginal kb Discharge, Vaginal Itching, Vaginal Pain. 17:24 The patient presents with vaginal bleeding that is spotting, vaginal discharge. The kb patient has experienced similar episodes in the past. The patient has not recently seen a physician. 17:25 Onset: The symptoms/episode began/occurred 2 month(s) ago. Modifying factors: The kb symptoms are alleviated by nothing, the symptoms are aggravated by nothing. Associated signs and symptoms: Pertinent positives: vaginal bleeding, vaginal discharge. Severity of symptoms: At their worst the symptoms were moderate, in the emergency department the symptoms are unchanged. Pt reports she has had spotting for 2 months and it is starting to get darker. Also reports foul smelling vaginal discharge that is exactly the same as when she had chlamydia in the past. . Historical: - Allergies: 12:30 No Known Allergies; mb9 - Home Meds: 12:30 None [Active]; mb9 - PMHx: 12:30 Asthma; Depression; Pancreatitis; mb9 - PSHx: 12:30 None; mb9 - Immunization history:: Adult Immunizations up to date. - Social history:: Smoking status: Patient denies any tobacco usage or history of. ROS: 17:20 Constitutional: Negative for fever, chills, and weight loss. kb 17:20 : Positive for vaginal bleeding, vaginal discharge. 17:20 All other systems are negative. Exam: 17:20 Constitutional: This is a well developed, well nourished patient who is awake, alert, kb and in no acute distress. Head/Face: Normocephalic, atraumatic. ENT: Moist Mucous membranes Cardiovascular: Regular rate and rhythm with a normal S1 and S2. No gallops, murmurs, or rubs. No pulse deficits. Respiratory: Respirations even and unlabored. No increased work of breathing. Talking in full sentences Abdomen/GI: Soft, non-tender. No distention Skin: Warm, dry with normal turgor. Normal color. MS/ Extremity: Pulses equal, no cyanosis. Neurovascular intact. Full, normal range of motion. Neuro: Awake and alert, GCS 15, oriented to person, place, time, and situation. Moves all extremities. Normal gait. Vital Signs: 12:28 BP 137 / 94; Pulse 93; Resp 18; Temp 98.2; Pulse Ox 98% on R/A; Weight 74.84 kg; Height mb9 5 ft. 4 in. ; 12:45 BP 134 / 86; Pulse 89; Resp 18; Pulse Ox 99% ; ko1 13:25 BP 110 / 76; Pulse 74; Resp 16; Pulse Ox 99% ; ko1 14:20 BP 124 / 78; Pulse 72; Resp 18; Pulse Ox 99% ; ko1 12:28 Body Mass Index 28.32 (74.84 kg, 162.56 cm) mb9 MDM: 12:21 Patient medically screened. kb 17:21 Differential diagnosis: urinary tract infection, vaginosis, gonorrhea, chlamydia. Data kb reviewed: vital signs, nurses notes. Counseling: I had a detailed discussion with the patient and/or guardian regarding: the historical points, exam findings, and any diagnostic results supporting the discharge/admit diagnosis, lab results, radiology results, the need for outpatient follow up, an OB/Gyne specialist, to return to the emergency department if symptoms worsen or persist or if there are any questions or concerns that arise at home. 06/11 12:28 Order name: Test, Urine; Complete Time: 12:57 kb 06/11 12:28 Order name: Urinalysis w/ reflexes; Complete Time: 12:57 kb 06/11 12:28 Order name: US Pelvis Complete; Complete Time: 14:06 kb Administered Medications: 14:15 Drug: Rocephin (cefTRIAXone) IM 500 mg Route: IM; Site: left gluteus; ko1 14:15 Drug: Doxycycline PO 100 mg Route: PO; ko1 Disposition: 18:25 Co-signature as Attending Physician, Quentin Maloney MD I reviewed the patient's care rt provided by the Advanced Practice Provider and agree with the diagnosis and treatment plan. Disposition Summary: 06/11/23 14:15 Discharge Ordered Location: Home kb Condition: Stable kb Diagnosis - Unspecified sexually transmitted disease kb - Abnormal uterine and vaginal bleeding, unspecified kb Followup: kb - With: Emergency Department - When: As needed - Reason: Worsening of condition Followup: kb - With: Private Physician - When: 2 - 3 days - Reason: Recheck today's complaints, Continuance of care, Re-evaluation by your physician Discharge Instructions: - Discharge Summary Sheet kb - Abnormal Uterine Bleeding, [id number] kb - Preventing Sexually Transmitted Infections, Adult kb Forms: - Medication Reconciliation Form kb - Thank You Letter kb - Antibiotic Education kb - Prescription Opioid Use kb - Patient Portal Instructions kb Prescriptions: - Doxycycline Hyclate 100 mg Oral Tablet - take 1 tablet by ORAL route every 12 hours; 20 tablet; Refills: 0, Product kb Selection Permitted Signatures: Dispatcher [employer] EDMS Lisa Lopez, MISTY-C SKULL SPLITTER-Angela Mathur, RN RN ko1 Julia Whitaker RN RN mb9 Quentin Maloney MD MD rt
--- NOTE | 2023-06-11 14:15 | ER ---
Nurse's Notes [facility] Name: Shy Galvez Age: 27 yrs Sex: Female : 1995 Arrival Date: 06/11/2023 Time: 12:13 Bed 7 Private MD: Diagnosis: Unspecified sexually transmitted disease;Abnormal uterine and vaginal bleeding, unspecified Presentation: 06/11 12:28 Chief complaint: Patient states: "I got my first Depo shot on 12/15/22 and haven't gotten mb9 another one. But I've been bleeding and spotting for the past 2 months. I was treated for Chlamydia 3 months ago and feel like I have it again. I have discharge that is light pink and smells like fish. My lower stomach hurts as well". Coronavirus screen: Vaccine status: Patient reports receiving the 2nd dose of the covid vaccine. Ebola Screen: No symptoms or risks identified at this time. Initial Sepsis Screen: Does the patient meet any 2 criteria? No. Patient's initial sepsis screen is negative. Does the patient have a suspected source of infection? No. Patient's initial sepsis screen is negative. Risk Assessment: Do you want to hurt yourself or someone else? Patient reports no desire to harm self or others. Onset of symptoms was June 11, 2023. 12:28 Method Of Arrival: Ambulatory 9 12:28 Acuity: LOGAN 4 mb9 Triage Assessment: 12:32 General: Appears in no apparent distress. Behavior is cooperative. Pain: Complains of mb9 pain in abdomen Pain does not radiate. EENT: No signs and/or symptoms were reported regarding the EENT system. Neuro: Mckeon Agitation-Sedation Scale (RASS): 0 - Alert and Calm Level of Consciousness is awake, alert, obeys commands, Oriented to person, place, time, situation, Appropriate for age. Cardiovascular: Patient's skin is warm and dry. Respiratory: Airway is patent Respiratory effort is even, unlabored, Respiratory pattern is regular, symmetrical. GI: Abd is soft Abdomen is tender to palpation in right lower quadrant and left lower quadrant. : Reports discharge, from vagina that is bloody, malodorous. Derm: Skin is pink, warm \\T\\ dry. Musculoskeletal: Range of motion: intact in all extremities. Historical: - Allergies: 12:30 No Known Allergies; mb9 - Home Meds: 12:30 None [Active]; mb9 - PMHx: 12:30 Asthma; Depression; Pancreatitis; mb9 - PSHx: 12:30 None; mb9 - Immunization history:: Adult Immunizations up to date. - Social history:: Smoking status: Patient denies any tobacco usage or history of. Screenin:45 [facility] ED Fall Risk Assessment (Adult) History of falling in the last 3 months, ko1 including since admission No falls in past 3 months (0 pts) Confusion or Disorientation No (0 pts) Intoxicated or Sedated No (0 pts) Impaired Gait Yes (1 pt) Mobility Assist Device Used No (0 pt) Altered Elimination No (0 pt) Score/Fall Risk Level 0 - 2 = Low Risk Oriented to surroundings, Maintained a safe environment, Educated pt \\T\\ family on fall prevention, incl call for assistance when getting out of bed, Assessed \\T\\ reinforced patient's understanding of fall precautions, Provided non-skid footwear, Hourly rounding (assess needs \\T\\ fall precautionary measures) done, Used ambulatory aids as needed (educated on \\T\\ assisted with). Abuse screen: Denies threats or abuse. Denies injuries from another. Nutritional screening: No deficits noted. Tuberculosis screening: No symptoms or risk factors identified. Assessment: 12:45 General: Appears in no apparent distress. comfortable, Behavior is calm, cooperative, ko1 appropriate for age. Pain: Complains of pain in left lower quadrant and right lower quadrant and abdomen. Neuro: No deficits noted. Cardiovascular: No deficits noted. Respiratory: No deficits noted. GI: No deficits noted. : Reports discharge, from vagina that is pain in bilateral lower quadrant(s) vaginal itching. EENT: No deficits noted. Derm: No deficits noted. Musculoskeletal: No deficits noted. Vital Signs: 12:28 BP 137 / 94; Pulse 93; Resp 18; Temp 98.2; Pulse Ox 98% on R/A; Weight 74.84 kg; Height mb9 5 ft. 4 in. ; 12:45 BP 134 / 86; Pulse 89; Resp 18; Pulse Ox 99% ; ko1 13:25 BP 110 / 76; Pulse 74; Resp 16; Pulse Ox 99% ; ko1 14:20 BP 124 / 78; Pulse 72; Resp 18; Pulse Ox 99% ; ko1 12:28 Body Mass Index 28.32 (74.84 kg, 162.56 cm) mb9 ED Course: 12:16 Patient arrived in ED. im 12:20 Kristofer Desouza, RN is Primary Nurse. bp 12:20 Lisa Lopez FNP-C is PHCP. kb 12:20 Quentin Maloney MD is Attending Physician. kb 12:28 Arm band placed on. mb9 12:30 Triage completed. mb9 12:39 Test, Urine Sent. ko1 12:39 Urinalysis w/ reflexes Sent. ko1 12:45 Patient has correct armband on for positive identification. Placed in gown. Bed in low ko1 position. Call light in reach. Side rails up X 1. Provided Education on: NA. Pulse ox on. NIBP on. Door closed. Noise minimized. Warm blanket given. 13:10 US Pelvis Complete In Process Unspecified. EDMS 14:20 No provider procedures requiring assistance completed. Patient did not have IV access ko1 during this emergency room visit. Administered Medications: 14:15 Drug: Rocephin (cefTRIAXone) IM 500 mg Route: IM; Site: left gluteus; ko1 14:15 Drug: Doxycycline PO 100 mg Route: PO; ko1 Medication: 14:20 VIS not applicable for this client. ko1 Outcome: 14:15 Discharge ordered by . kb 14:20 Discharged to home ambulatory. ko1 14:20 Condition: good 14:20 Discharge instructions given to patient, Instructed on discharge instructions, follow up and referral plans. medication usage, safe sex practices, Demonstrated understanding of instructions, follow-up care, medications, Prescriptions given X 1. 14:21 Patient left the ED. ko1 Signatures: Dispatcher [employer] EDMS Lisa Lopez FNP-C FNP-Ckb Peltier, Brian, RN RN bp Angela Lundberg RN RN ko1 Julia Whitaker RN RN mb9 Anna Weston im
[2023-06-11] MEDS ORDERED: LIDOCAINE 1% MPF 2 ML AMPULE ONE (14:21)
[2023-06-11] MEDS ORDERED: CEFTRIAXONE 500 MG/VIAL ONE (14:21)
[2023-06-11] MEDS ORDERED: DOXYCYCLINE 100 MG CAP PO ONE (14:21)
[2023-06-11 14:31] VITALS: TEMP 98.2
[2023-06-11 14:32] VITALS: O2SAT 99
[2023-06-11 14:35] VITALS: BP 124/78
== END 2023-06-11 14:21 | disposition home or self-care (01) ==
LOC: ER 12:13
DX: A64 Unspecified sexually transmitted disease (principal)
CPT/HCPCS: 76856; 81001; 81025; 96372; 99284

== ENCOUNTER 2023-09-27 16:34 | Emergency (ER) | payer OTHER ==
[2023-09-27] MEDS ORDERED: CEFTRIAXONE 1000 MG/VIAL ONE (17:34)
[2023-09-27] MEDS ORDERED: LIDOCAINE 1% MPF 2 ML AMPULE ONE (17:34)
[2023-09-27] MEDS ORDERED: AZITHROMYCIN 250 MG TAB ONE (17:34)
[2023-09-27] MEDS ORDERED: ONDANSETRON 4 MG (ODT) TAB ONE (17:35)
--- NOTE | 2023-09-27 17:37 | EDPHYS ---
Physician Documentation [facility] Name: Shy Galvez Age: 27 yrs Sex: Female : 1995 Arrival Date: 09/27/2023 Time: 16:34 Bed 20 Private MD: ED Physician Quentin Maloney HPI: 09/27 16:50 This 27 yrs old Black Female presents to ER via Ambulatory with complaints of Vaginal jh7 Discharge - Yellow. 16:50 The patient presents with vaginal discharge, that is a moderate amount of malodorous jh7 white discharge, patient has had similar discharge in the past. 27-year-old female reports vaginal discharge for the past 1 to 2 weeks. Reports that the discharge started out as yellow and is now white with a fishlike odor. She is concerned for STI and states that she has had chlamydia multiple times. Also reports a history of bacterial vaginosis and yeast infections. She is requesting treatment.. 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 - Social history:: Smoking status: Patient denies any tobacco usage or history of. ROS: 16:50 Constitutional: Negative for fever, chills, and weight loss, Eyes: Negative for injury, jh7 pain, redness, and discharge, Neck: Negative for injury, pain, and swelling, Cardiovascular: Negative for chest pain, palpitations, and edema, Respiratory: Negative for shortness of breath, cough, wheezing, and pleuritic chest pain, Back: Negative for injury and pain, MS/Extremity: Negative for injury and deformity, Skin: Negative for injury, rash, and discoloration, Neuro: Negative for headache, weakness, numbness, tingling, and seizure, 16:50 : Positive for vaginal discharge, Negative for urinary symptoms, 16:50 All other systems are negative, Exam: 16:50 Constitutional: This is a well developed, well nourished patient who is awake, alert, jh7 and in no acute distress. Head/Face: Normocephalic, atraumatic. Neck: Trachea midline, no thyromegaly or masses palpated, and no cervical lymphadenopathy. Supple, full range of motion without nuchal rigidity, or vertebral point tenderness. No Meningismus. Cardiovascular: Regular rate and rhythm with a normal S1 and S2. No gallops, murmurs, or rubs. Normal PMI, no JVD. No pulse deficits. Respiratory: Lungs have equal breath sounds bilaterally, clear to auscultation and percussion. No rales, rhonchi or wheezes noted. No increased work of breathing, no retractions or nasal flaring. Abdomen/GI: Soft, non-tender, with normal bowel sounds. No distension or tympany. No guarding or rebound. No evidence of tenderness throughout. Skin: Warm, dry with normal turgor. Normal color with no rashes, no lesions, and no evidence of cellulitis. MS/ Extremity: Pulses equal, no cyanosis. Neurovascular intact. Full, normal range of motion. Neuro: Awake and alert, GCS 15, oriented to person, place, time, and situation. Motor strength 5/5 in all extremities. Sensory grossly intact. Normal gait. Vital Signs: 16:55 BP 132 / 88; Pulse 86; Resp 16; Temp 97.8; Pulse Ox 100% on R/A; Weight 63.5 kg; Height hb 5 ft. 3 in. ; Pain 8/10; 17:42 Pulse 80; Resp 16; Pulse Ox 100% ; tl4 16:55 Body Mass Index 24.80 (63.50 kg, 160.02 cm) hb 16:55 Pain Scale: Adult hb MDM: 16:41 Patient medically screened. [facility] 17:38 Differential diagnosis: pelvic inflammatory disease, urinary tract infection, [facility] vaginosis. Data reviewed: vital signs, nurses notes, lab test result(s), urinalysis. I considered the following discharge prescriptions or medication management in the emergency department Medications were administered in the Emergency Department. See MAR. Counseling: I had a detailed discussion with the patient and/or guardian regarding the historical points, exam findings, and any diagnostic results supporting the discharge/admit diagnosis, to return to the emergency department if symptoms worsen or persist or if there are any questions or concerns that arise at home. 09/27 16:57 Order name: Urinalysis W/Microscopic; Complete Time: 17:44 [facility] Administered Medications: 17:35 Drug: Rocephin (cefTRIAXone) IM 1 grams IM once Route: IM; Site: right gluteus; mb9 17:42 Follow up: Response: No adverse reaction tl4 17:35 Drug: AZITHromycin PO 1 grams PO once Route: PO; mb9 17:43 Follow up: Response: No adverse reaction tl4 17:35 Drug: Ondansetron Oral Disintegrating Tablet Oral Disintegrating Tablet 4 mg PO once mb9 Route: PO; 17:43 Follow up: Response: No adverse reaction tl4 Disposition: 20:47 Co-signature as Attending Physician, Qunetin Maloney MD I reviewed the patient's care rt provided by the Advanced Practice Provider and agree with the diagnosis and treatment plan. Disposition Summary: 09/27/23 17:37 Discharge Ordered Notes: Location: Home [facility] Problem: an ongoing problem [facility] Symptoms: are unchanged [facility] Condition: Stable [facility] Diagnosis - Unspecified sexually transmitted disease [facility] - Vaginal discharge [facility] Followup: [facility] - With: Private Physician - When: 2 - 3 days - Reason: Recheck today's complaints Discharge Instructions: - Discharge Summary Sheet [facility] - Bacterial Vaginosis [facility] - Chlamydia, Female [facility] - Preventing Sexually Transmitted Infections, Adult [facility] Forms: - Medication Reconciliation Form [facility] - Thank You Letter [facility] - Patient Portal Instructions [facility] - Leadership Thank You Letter [facility] Prescriptions: - ondansetron 4 mg Oral Tablet,disintegrating - take 1 tablet ORAL route every 4 to 6 hours As needed; 20 tablet; Refills: 0, [facility] Product Selection Permitted - Flagyl 500 mg Oral Tablet - take 1 tablet ORAL route every 12 hours for 7 days; 14 tablet; Refills: 0, [facility] Product Selection Permitted - Fluconazole 150 mg Oral tablet - take 1 tablet ORAL route once; 1 tablet; Refills: 0, [facility] Signatures: Dispatcher [employer] Karla Valdivia RN RN Taty Hinton FNP [employer] [facility] Julia Whitaker RN RN mb9 Quentin Maloney MD MD rt LogdaGilmar mercado tl4
--- NOTE | 2023-09-27 17:37 | ER ---
Nurse's Notes [facility] Name: Shy Galvez Age: 27 yrs Sex: Female : 1995 Arrival Date: 09/27/2023 Time: 16:34 Bed 20 Private MD: Diagnosis: Unspecified sexually transmitted disease;Vaginal discharge Presentation: 09/27 16:50 Chief complaint: Foul yellow vaginal discharge and vulvar itching x 2 weeks. hb Coronavirus screen: At this time, the client does not indicate any symptoms associated with coronavirus-19. Ebola Screen: No symptoms or risks identified at this time. Initial Sepsis Screen: Does the patient meet any 2 criteria? No. Patient's initial sepsis screen is negative. Does the patient have a suspected source of infection? No. Patient's initial sepsis screen is negative. Risk Assessment: Do you want to hurt yourself or someone else? Patient reports no desire to harm self or others. Onset of symptoms was September 13, 2023. 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 - Social history:: Smoking status: Patient denies any tobacco usage or history of. Screenin:43 [facility] ED Fall Risk Assessment (Adult) Score/Fall Risk Level 0 - 2 = Low Risk tl4 Oriented to surroundings, Maintained a safe environment, Educated pt \T\ family on fall prevention, incl call for assistance when getting out of bed, Hourly rounding (assess needs \T\ fall precautionary measures) done. Abuse screen: Denies threats or abuse. Nutritional screening: No deficits noted. Tuberculosis screening: No symptoms or risk factors identified. Assessment: 17:42 General: Appears in no apparent distress. Behavior is calm, cooperative, appropriate tl4 for age. Pain: Denies pain. GI: Bowel sounds present X 4 quads. Abd is soft and non tender X 4 quads. : Reports vaginal itching, yellow vaginal discharge. Vital Signs: 16:55 BP 132 / 88; Pulse 86; Resp 16; Temp 97.8; Pulse Ox 100% on R/A; Weight 63.5 kg; Height hb 5 ft. 3 in. ; Pain 8/10; 17:42 Pulse 80; Resp 16; Pulse Ox 100% ; tl4 16:55 Body Mass Index 24.80 (63.50 kg, 160.02 cm) hb 16:55 Pain Scale: Adult hb ED Course: 16:40 Patient arrived in ED. mg5 16:41 Taty Hinton FNP [facility]. 7 16:41 Quentin Maloney MD is Attending Physician. 7 16:55 Triage completed. hb 16:58 Arm band placed on. hb 17:18 Gilmar Mendenhall is Primary Nurse. tl4 17:28 Urinalysis W/Microscopic Sent. iw 17:43 Patient has correct armband on for positive identification. Call light in reach. Side tl4 rails up X 1. Provided Education on: safe sex practices/reading. 17:43 No provider procedures requiring assistance completed. Patient did not have IV access tl4 during this emergency room visit. Administered Medications: 17:35 Drug: Rocephin (cefTRIAXone) IM 1 grams IM once Route: IM; Site: right gluteus; mb9 17:42 Follow up: Response: No adverse reaction tl4 17:35 Drug: AZITHromycin PO 1 grams PO once Route: PO; mb9 17:43 Follow up: Response: No adverse reaction tl4 17:35 Drug: Ondansetron Oral Disintegrating Tablet Oral Disintegrating Tablet 4 mg PO once mb9 Route: PO; 17:43 Follow up: Response: No adverse reaction tl4 Medication: 17:44 VIS not applicable for this client. tl4 Outcome: 17:37 Discharge ordered by . [facility] 17:43 Discharged to home ambulatory, tl4 17:43 Condition: stable 17:43 Discharge instructions given to patient, Instructed on discharge instructions, follow up and referral plans. medication usage, Demonstrated understanding of instructions, follow-up care, medications, Prescriptions given X 3, 17:44 Patient left the ED. tl4 Signatures: Delores Castanon, RN CONG Karla Fishman RN RN Taty Hinton FNP [place] [id number] Julia Whitaker RN RN Nickie [place] mg5 Gilmar Mendenhall tl4
[2023-09-27 17:40] LABS: Specific Gravity 1.025 (1.005-1.030); Urine Bacteria <20 /HPF (<20); Urine Bilirubin NEGATIVE (Negative); Urine Blood Negative (Negative); Urine Clarity Turbid (Clear); Urine Color Yellow (Yellow); Urine Glucose NEGATIVE (Negative); Urine Mucus 1+ /HPF (None Seen); Urine Protein TRACE (Negative); Urine RBC <5 /HPF (None Seen); Urine Urobilinogen 1+ (Normal); Urine pH 6.5 (5.0-7.0)
[2023-09-27 19:21] VITALS: BP 132/88; TEMP 97.8; O2SAT 100
== END 2023-09-27 17:44 | disposition home or self-care (01) ==
LOC: ER 16:34
DX: A64 Unspecified sexually transmitted disease (principal)
CPT/HCPCS: 81001; 96372; 99284; Q0162; J0696